=== PATIENT | female | born 1965 | race Caucasian/White ===

== ENCOUNTER → 2019-05-16 09:00 | Outpatient (BNVA) | payer OTHER, SELFPAY | PROVIDERS: Family Provider Nurse Practitioner; PCP Nurse Practitioner; Referring Provider Nurse Practitioner; Visit Provider Nurse Practitioner | DX: E11.9 Type 2 diabetes mellitus without complications (principal); E78.5 Hyperlipidemia, unspecified | CPT/HCPCS: 80053; 80061 ==

== ENCOUNTER → 2019-12-08 11:08 | Outpatient (BNVA) | payer OTHER, SELFPAY | PROVIDERS: Family Provider Nurse Practitioner; PCP Nurse Practitioner; Visit Provider Family Medicine | DX: I10 Essential (primary) hypertension (principal); E78.5 Hyperlipidemia, unspecified; E11.9 Type 2 diabetes mellitus without complications | CPT/HCPCS: 80053; 80061; 82044; 83036; 85025 ==

== ENCOUNTER → 2020-06-02 10:19 | Outpatient (BNVA) | payer OTHER, SELFPAY | PROVIDERS: Family Provider Nurse Practitioner; PCP Nurse Practitioner; Visit Provider Family Medicine | DX: E11.9 Type 2 diabetes mellitus without complications (principal); F41.1 Generalized anxiety disorder; I10 Essential (primary) hypertension; E78.5 Hyperlipidemia, unspecified; G56.02 Carpal tunnel syndrome, left upper limb | CPT/HCPCS: 80053 ==

== ENCOUNTER → 2020-11-18 09:59 | Outpatient (BNVA) | payer OTHER, SELFPAY | PROVIDERS: Family Provider Nurse Practitioner; PCP Family Medicine; Visit Provider Family Medicine | DX: E11.9 Type 2 diabetes mellitus without complications (principal); F41.1 Generalized anxiety disorder; G47.10 Hypersomnia, unspecified | CPT/HCPCS: 80053; 82043; 83036 ==

== ENCOUNTER → 2020-12-07 12:02 | Outpatient (BNVA) | payer OTHER, SELFPAY | PROVIDERS: Family Provider Nurse Practitioner; PCP Family Medicine; Visit Provider Nurse Practitioner Family | DX: Z20.828 Contact with and (suspected) exposure to other viral communicable diseases (principal) | CPT/HCPCS: 87635 ==

== ENCOUNTER 2021-01-07 10:29 | Outpatient (CLI) | payer OTHER, SELFPAY ==
[2021-01-07 10:43] VITALS: BMI 27.2
--- NOTE | 2021-01-07 11:55 | ECG_ITS ---
[facility] Test Date: 2021-01-07 Pat Name: Dayana Landin Department: Room: Gender: Female Speech Coach: : 1965 Requested By: Meredith Amado Order Number: [id number] Carreon MD: Chelle Fuller M.D. Interpretive Statements NAME OF STUDY: EXERCISE SESTAMIBI STRESS TEST INDICATION: Shortness of Breath, PROCEDURE: The baseline electrocardiogram showed normal sinus rhythm with normal ST-Ts. At the baseline, the patient's blood pressure was mm Hg with a heart rate of. The patient exercised for 8 minutes and 41 seconds on a standard Feliciano protocol. Patient attained a maximum heart rate of 155 beats per minute(93% of the maximum predicted heart rate) with a blood pressure at the peak exercise of 173/82 mm Hg. The EKG at the peak exercise revealed no significant changes. Patient did not have any chest pain or any significant arrhythmis with the exercise Sestamibi was injected 1 minute prior to the peak exercise During the recovery phase, there were no new changes. Blood pressure at the end of the recovery phase was 109/79 mm Hg with a heart rate of 87 per minute. CONCLUSION: 1. No significant EKG changes with the [treadmill exercise 2. No exercise-induced chest pain or cardiac arrhythmia 3. Fair exercise tolerance, attained a maximum of 10.2 Mets. 4. Sestamibi/Sestamibi perfusion results pending; see separate report. Electronically Signed On 01-10-2021 17:58:42 CDT by Chelle Fuller M.D. [id number]
--- NOTE | 2021-01-07 11:56 | NMCV_ITS ---
NM melissa perf SPECT r/s* [id number] Dayana Landin Age: 55 Gender: F : 1965 Exam Date: 01/07/2021 11:53 Ordering Phys: Meredith Amado DO Technologist: ARELY Means Exam Location: [facility] Indications: DYSPNEA STRESS TEST Please see separate stress test report in [facility] for full findings IMAGE PROTOCOL Rest/Stress 1 Exercise Day Radiopharmaceutical Dose (mCi) Administration Site Administered by Rest: Tc-99m 10.6 IV ARELY Mcclain Sestamibi Stress:Tc-99m 32.4 IV ARELY Means Sestamisandro Rest: 07-Jan-2021 60 Discovery 630 Stress: 07-Jan-2021 15 Discovery 630 Radiopharmaceutical was injected at 88 % maximum heart rate. Images obtained in supine and prone position. SPECT RESULTS Technical Quality: Excellent Raw Data Analysis: Normal Image Corrections: No attenuation or motion correction applied Summed Stress Score: 1 Summed Rest Score: 0 Summed Difference Score: 1 PERFUSION FINDINGS Small area of slightly decreased aseptic was noted in the mid inferolateral region with some reversibility with the supine imaging. However with the pronating, there is no reversible defects were noted FUNCTIONAL RESULTS (calculated via Gated SPECT) Stress Image LV EF (%): 91 Stress EDV (mL):47 TID: 0.77 Stress ESV (mL):4 FUNCTIONAL FINDINGS: Segmental wall motion analysis revealing no gross wall motion normalities. IMPRESSIONS 1. Myocardial perfusion imaging revealing a small area of inconsistent reversible defect in the inferolateral region, most likely artifactual. 2. Normal LV ejection fraction of 91%. 3. LV wall motion analysis revealing no gross wall motion normalities. 4. Normal LV volume Possibly no significant coronary ischemia, based on the above finding. Dr Chelle Fuller MD [facility] (Electronically Signed) Final Date: 07 January 2021 13:47 S
[2021-01-07 12:59] VITALS: BP 107/79; PULSE 88
== END 2021-01-07 10:30 | disposition home or self-care (01) ==
LOC: CDL 10:31
PROVIDERS: PCP Family Medicine; Visit Provider Family Medicine
DX: R06.00 Dyspnea, unspecified (principal)
CPT/HCPCS: 78452; 93017; A9500

== ENCOUNTER 2021-02-03 12:00 | Outpatient (CLI) | payer OTHER, SELFPAY | END 2021-02-03 12:01 | disposition home or self-care (01) | LOC: SLEEP 02-04 10:36 | PROVIDERS: PCP Family Medicine; Visit Provider Family Medicine | DX: G47.10 Hypersomnia, unspecified (principal) | CPT/HCPCS: G0399 ==

== ENCOUNTER → 2022-02-07 10:50 | Outpatient (BNVA) | payer OTHER, SELFPAY | PROVIDERS: PCP Family Medicine; Visit Provider Family Medicine | DX: I10 Essential (primary) hypertension (principal); E78.5 Hyperlipidemia, unspecified; E11.9 Type 2 diabetes mellitus without complications; R10.13 Epigastric pain | CPT/HCPCS: 80053; 80061; 82043; 83036; 85025 ==

== ENCOUNTER → 2022-04-20 11:49 | Outpatient (BNVA) | payer OTHER, SELFPAY | PROVIDERS: PCP Family Medicine; Visit Provider Family Medicine | DX: R53.83 Other fatigue (principal); E11.9 Type 2 diabetes mellitus without complications; R11.10 Vomiting, unspecified; R10.9 Unspecified abdominal pain; H11.89 Other specified disorders of conjunctiva | CPT/HCPCS: 80053; 83036; 83690; 84443; 85027 ==

== ENCOUNTER → 2022-04-26 11:27 | Outpatient (BNVA) | payer OTHER, SELFPAY | PROVIDERS: PCP Family Medicine; Visit Provider Family Medicine | DX: D50.9 Iron deficiency anemia, unspecified (principal); D75.839 Thrombocytosis, unspecified; R11.10 Vomiting, unspecified; R10.9 Unspecified abdominal pain; H11.89 Other specified disorders of conjunctiva | CPT/HCPCS: 80503; 82728; 83550; 84466; 85025; 85045 ==

== ENCOUNTER 2022-05-18 14:11 | Emergency (ER) | payer OTHER, SELFPAY ==
[2022-05-18 14:14] VITALS: BP 136/83; PULSE 88; RESP 20; TEMP 36.2; O2SAT 100
[2022-05-18 16:05] VITALS: BP 159/88; PULSE 75; RESP 18; O2SAT 100
--- NOTE | 2022-05-18 16:17 | XRR_ITS ---
PROCEDURE INFORMATION: Exam: XR Abdomen Exam date and time: 05/18/2022 4:25 PM Age: 57 years old Clinical indication: Abdominal pain; Generalized; Additional info: Abd pain TECHNIQUE: Imaging protocol: Radiologic exam of the abdomen. Views: Frontal supine view of the abdomen. 1 View. COMPARISON: CR XR chest 1V [id number] 09/03/2018 2:50 PM FINDINGS: Gastrointestinal tract: Moderate to severe constipation without bowel dilation to indicate obstruction. Bones/joints: Unremarkable. XR/XR KUB portable [id number] IMPRESSION: Moderate to severe constipation without bowel dilation to indicate obstruction.
--- NOTE | 2022-05-18 16:17 | W.ED.ABDPA2 ---
HPI - Abdominal Pain General: Chief Complaint: Abdominal Pain Stated Complaint: unable to urinate, pains Time Seen by Provider: 05/18/22 15:56 Source: patient Mode of arrival: ambulatory History of Present Illness: 57-year-old female presents emergency room complaining of nausea vomiting and constipation. She vomited once last week. She denies any medication melena hematemesis coffee-ground emesis. She tried various things to assist with bowel movements but has not been able to go with very uncomfortable has been able to urinate without difficulty denies fever sweats or chills. MD elicited complaint: abdominal pain Pertinent past history: constipation Onset (ago): day(s) Location: Diffuse Severity: moderate Quality: cramping Radiation: none Exacerbating factors: nothing Relieving factors: nothing Associated Symptoms: Reports GI cramping, nausea and poor appetite; Denies anorexia, belching, change in bowel habits, change in stool character, chills, coffee ground emesis, constipation, diarrhea, dyspepsia, dysuria, excessive flatus, fever(s), heartburn, hematochezia, hematuria, hematemesis, fecal incontinence, loose stools, melena, syncope and vomiting Related Data: Date of Last Menstrual Period: 05/14/14 Review of Systems Const: Denies: fever(s), chills, fatigue or malaise ENMT: Denies: throat pain, ear or mastoid pain, nasal discharge or nasal congestion Card: Denies: chest pain, palpitations, irregular heart rhythm or syncope Resp: Denies: dyspnea, productive cough or non-productive cough GI: Reports: abdominal pain, nausea and GI cramping; Denies: vomiting, hematemesis, coffee ground emesis, heartburn, diarrhea, constipation, belching, excessive flatus, fecal incontinence, change in bowel habits, change in stool character, hematochezia or melena : Denies: dysuria or hematuria Skin/Breast: Denies: rash or pruritus PFSH ED PFSH: Medical History Dyslipidemia Hypertension Type 2 diabetes mellitus, without long-term current use of insulin Surgical History No pertinent past surgical history Family History Other Diabetes Hypertension Social History Smoking and tobacco status: never smoked Second hand smoke exposure: Yes Smoking risk assessment/counseling performed?: No Alcohol intake: never Desire information about alcohol rehabilitation?: No Counseling given: No Desire information about substance/drug rehabilitation?: No Counseling given: No History of recent travel: No Female Reproductive History: Date of last menstrual period: 05/14/14 Physical Exam Const: GENERAL APPEARANCE: cooperative and comfortable ORIENTATION/CONSCIOUSNESS: Yes awake, Yes oriented to person, Yes oriented to place and Yes oriented to time HENMT: COMMON NORMALS: normocephalic, atraumatic and hearing grossly normal bilaterally HEAD & SCALP: normocephalic and atraumatic Resp: COMMON NORMALS: normal respiratory effort, No retractions, No use of accessory muscles and clear to auscultation bilaterally AUSCULTATION: clear to auscultation bilaterally Cardio: COMMON NORMALS: regular rate, regular rhythm and No murmurs present (Cardio) RATE: regular rate RHYTHM: regular rhythm GI: COMMON NORMALS: No hepatosplenomegaly present AUSCULTATION: Yes normoactive bowel sounds PALPATION: Yes Tenderness to palpation present (GI) (Diffuse), No Guarding due to palpation present (GI) and Yes No hepatosplenomegaly present Extremity: COMMON NORMALS: normal to inspection, capillary refill normal, no clubbing, cyanosis or edema, no calf tenderness and no pedal edema Neuro: SENSORIUM/ORIENTATION: Yes oriented to person, Yes oriented to place and Yes oriented to time Skin: COMMON NORMALS: no rashes or lesions noted GENERAL SKIN EXAM: no rashes or lesions noted Course Vital Signs: Vital signs: Vital Signs Temperature 97.2 F L 05/18/22 14:14 Pulse Rate 84 05/18/22 17:00 Respiratory Rate 18 05/18/22 16:05 Blood Pressure 132/68 05/18/22 17:00 Pulse Oximetry 100 05/18/22 17:00 MDM - Abdominal Pain Medical Decision Making Relief of symptoms afterwards for movement stimulated by enema. Suspect patient will still have large amount of stool to pass use lactulose. Recommend initiating MiraLAX 1 capful daily to prevent further constipation follow-up with primary care as needed Medical Records I reviewed the patient's medical records. Lab Data I reviewed the patient's lab results. Labs/Radiology: Radiology Impressions KUB X-Ray 05/18/22 16:17 IMPRESSION: Moderate to severe constipation without bowel dilation to indicate obstruction. Discharge Plan Discharge Patient Disposition: Home Clinical Impression: Constipation Condition: Stable Prescriptions: No Action magnesium hydroxide [Milk Of Magnesia Concentrated] 2,400 mg/10 mL suspension 10 ml PO BID PRN (Reason: constipation) Qty: 100 0RF Discharge Orders: Discharge ED (Routine); Ordered 05/18/22 Ordered By: Khalif Morrison Referrals: Julio Jay, [Primary Care Provider] - Discharge Diet: Clear Liquid Discharge Activity: Increase activity as tolerated Patient Instructions: Constipation (ED), Opioid Safety, Pain Management Activity Restrictions/Additional Instructions: You were seen today for constipation and urinary to the initial portions of it would be beneficial for you to use some laxative at home he is lactulose every 2 hours until desired results are achieved. Would also recommend commend starting MiraLAX 1 capful daily for preventative to keep from developing constipation in the future Coding Level of Care Code ED Road Grader Operator for Walter Baca
--- NOTE | 2022-05-18 16:40 | PC.NURSE ---
DR. COOL GAVE VERBAL ORDER FOR BLADDER SCAN. PT HAS 54ML OF URINE IN BLADDER PER RESULT OF BLADDER SCAN
[2022-05-18 17:00] VITALS: BP 132/68; PULSE 84; O2SAT 100
--- NOTE | 2022-05-18 18:52 | PC.NURSE ---
PT HAD BM. PT STATES I FELT LIKE QUITE A BIT CAME OUT
--- NOTE | 2022-05-18 18:53 | PC.NURSE ---
PT REMOVED VS EQIPMENT DUE TO NEEDING TO USE THE RESTROOM OFTEN
== END 2022-05-18 18:54 | disposition home or self-care (01) ==
PROVIDERS: Emergency Provider Family Medicine; PCP Family Medicine
DX: K59.00 Constipation, unspecified (principal); Z77.22 Contact with and (suspected) exposure to environmental tobacco smoke (acute) (chronic); E78.5 Hyperlipidemia, unspecified; I10 Essential (primary) hypertension; E11.9 Type 2 diabetes mellitus without complications
CPT/HCPCS: 45915; 74018; 99284

== ENCOUNTER 2022-07-19 12:49 | Outpatient (CLI) | payer OTHER, SELFPAY ==
--- NOTE | 2022-07-19 13:08 | MM_ITS ---
WS: [id number] BILATERAL 3D TOMOSYNTHESIS DIGITAL SCREENING MAMMOGRAPHY WITH CAD CLINICAL INFORMATION: Breast CA screening. HISTORY: Screening mammogram. No current complaints. COMPARISON: Baseline TECHNIQUE: Bilateral CC and MLO views. FINDINGS: The breasts are composed of heterogeneous fibroglandular density tissue, which can limit the detectio n of small underlying mass lesions. No suspicious mass, asymmetry, calcifications, or architectural d istortion. No evidence of malignancy. Dystrophic calcification RIGHT breast. Incidental punctate calc ifications bilaterally. MM/[place] [id number] IMPRESSION: BI-RADS: 2-Benign FOLLOW UP: 1 Year Follow-up Recommend return to annual screening mammography.
== END 2022-07-19 12:50 | disposition home or self-care (01) ==
LOC: RAD 12:54
PROVIDERS: PCP Family Medicine; Visit Provider Family Medicine
DX: Z12.31 Encounter for screening mammogram for malignant neoplasm of breast (principal)
CPT/HCPCS: 77063; 77067

== ENCOUNTER → 2022-08-09 11:00 | Outpatient (BNVA) | payer OTHER, SELFPAY | PROVIDERS: PCP Family Medicine; Referring Provider Family Medicine; Visit Provider Nurse Practitioner Women's Health | DX: Z12.4 Encounter for screening for malignant neoplasm of cervix (principal) | CPT/HCPCS: 87624 ==

== ENCOUNTER → 2022-08-30 10:07 | Outpatient (BNVA) | payer OTHER, SELFPAY | PROVIDERS: PCP Family Medicine; Visit Provider Nurse Practitioner Women's Health | DX: Z78.0 Asymptomatic menopausal state (principal); R19.00 Intra-abdominal and pelvic swelling, mass and lump, unspecified site | CPT/HCPCS: 76830 ==

== ENCOUNTER 2022-09-22 06:02 | Day surgery (SDC) | payer OTHER, SELFPAY ==
[2022-09-20 13:37] VITALS: BMI 22.6
[2022-09-22] VITALS (10 sets, daily range): BP systolic 96–124; BP diastolic 63–79; PULSE 69–98; RESP 14–18; TEMP 36.1–36.5; O2SAT 97–100
[2022-09-22 06:39] LABS: Glucose Point of Care 168 mg/dL (70-110)
[2022-09-22] MEDS: sodium chloride 0.9% 1,000 ML 30 ML IV (06:40)
--- NOTE | 2022-09-22 06:47 | P.ANESASSM_ITS ---
Pre-Anesthetic Assessment Height/Weight: Height 1.5 m Weight 50.802 kg Temp Pulse Resp BP Pulse Ox O2 Del Method 97.7 F 98 18 98/72 97 Room Air 09/22/22 06:30 09/22/22 06:30 09/22/22 06:30 09/22/22 06:30 09/22/22 06:30 09/22/22 06:30 Preop Diagnosis: screening Operation Date: 09/22/22 07:30 Proposed Procedures p 72006 colon,Z12.11 EGD 45146(Not Applicable) - Konstantin Basilio DO s EGD(Not Applicable) - Konstantin Basilio DO Familial anesthetic complications: none Was Beta Ranjan taken within 24 hours: N/A Was Clonidine taken within 24 hours: N/A Last intake: Intake Last Liquid Date 09/21/22 Last Liquid Time 23:00 Last Solid Date 09/20/22 Social No alcohol and No tobacco Exam alert, oriented x 3, clear to auscultation bilaterally and regular rate & rhythm Airway Submandibular: within normal limits Cervical ROM: within normal limits Mallampati: Class IV Dentition: full Pulmonary Sleep Apnea (home study- patient doesn't wear CPAP she doesnt believe she really has it ) CV/HEM Hypertension None reported Hepatic None reported GI Gastroesophageal Reflux Disease 30 lbs unintentional weightloss over the last 6 months. Metabolic Diabetes Mellitus and Hyperlipidemia [facility] None reported Neuropsych Anxiety and None reported Anesthetic Plan ASA status: 3 Anesthesia: MAC Medications/Allergies Home Medications Medication Instructions Recorded Confirmed Last Taken Type escitalopram oxalate 10 mg tablet 10 mg PO DAILY #30 tabs 07/11/22 09/20/22 09/20/22 Rx (Lexapro) pantoprazole 40 mg tablet,delayed 40 mg PO BID #60 tabs 07/11/22 09/20/22 09/20/22 Rx release Allergies Allergy/AdvReac Type Severity Reaction Status Date / Time No Known Allergies Allergy Verified 09/22/22 06:31 Current Medications Generic Name Dose Route Start Last Admin Trade Name Freq PRN Reason Stop Dose Admin Sodium Chloride 1,000 mls @ 30 mls/hr 09/22/22 06:15 09/22/22 06:40 Sodium Chloride 0.9% IV 09/23/22 06:14 30 mls/hr .Q24H JOSSE Administration PFSH Anesthesia Medical History Dyslipidemia Hypertension No pertinent past medical history neghx:thyroid,dvt/pe PCP: Pierre Type 2 diabetes mellitus, without long-term current use of insulin Surgical History No pertinent past surgical history Family History Mother Diabetes Stroke Family/Other Diabetes nephew Father Hypertension Denies family history of Colon cancer Ovarian cancer Heart disease Hyperlipidemia Breast cancer Uterine cancer Thyroid condition Social History Smoking and tobacco status: never smoked Alcohol intake: former Substance/Drug Use: never Data Anesthesia Cardiac Studies: Sestamibi Stress Test (Cardiology) 01/07
--- NOTE | 2022-09-22 07:29 | W.PM.OPSUD ---
Surgery/Procedure H&P Update DATE OF PROCEDURE: September 22, 2022 DATE H&P PERFORMED: 08/29/22 H&P UPDATE INFORMATION: I have reviewed H&P completed within last 30 days, I have examined patient prior to procedure and No changes to prior documentation PREOP DIAGNOSIS: screening, GERD PLANNED PROCEDURE: Operation Date: 09/22/22 07:30 Proposed Procedures p 99164 colon,Z12.11 EGD 93255(Not Applicable) - DO josh Arora EGD(Not Applicable) - Konstantin Basilio DO
--- NOTE | 2022-09-22 14:41 | ANE.PACU2 ---
Inpatient post-anesthesia follow up: Airway intact: Yes Vital signs: Temperature 97 F Pulse Rate 69 Respiratory Rate 16 Blood Pressure 96/63 Pulse Oximetry 100 Oxygen Delivery Me thod Room Air Oxygen Flow Rate 3 Fraction of Inspir ed Oxygen Hydration adequate: Yes Nausea and vomiting: No Pain level: 2 Mental status: Baseline
== END 2022-09-22 09:28 | disposition home or self-care (01) ==
PROVIDERS: PCP Family Medicine; Visit Provider Surgery
PROC: 0DJD8ZZ Inspection of Lower Intestinal Tract, Via Natural or Artificial Opening Endoscopic (ICD-10-PCS; CPT 45378; principal; 2022-09-22 07:30)
PROC: 0DJ08ZZ Inspection of Upper Intestinal Tract, Via Natural or Artificial Opening Endoscopic (ICD-10-PCS; CPT 43235; 2022-09-22 07:30)
DX: K21.9 Gastro-esophageal reflux disease without esophagitis (principal); Z12.11 Encounter for screening for malignant neoplasm of colon; K63.5 Polyp of colon; B96.81 Helicobacter pylori [H. pylori] as the cause of diseases classified elsewhere; K29.50 Unspecified chronic gastritis without bleeding; D12.2 Benign neoplasm of ascending colon; D12.4 Benign neoplasm of descending colon; T18.2XXA Foreign body in stomach, initial encounter; X58.XXXA Exposure to other specified factors, initial encounter; G47.30 Sleep apnea, unspecified; I10 Essential (primary) hypertension; F41.9 Anxiety disorder, unspecified; E11.9 Type 2 diabetes mellitus without complications
CPT/HCPCS: 36416; 43239; 45385; 82962; 88305; 88342; J0330; J0461; J2704; J7030

== ENCOUNTER → 2022-10-10 11:37 | Outpatient (BNVA) | payer OTHER, SELFPAY | PROVIDERS: PCP Family Medicine; Visit Provider Family Medicine | DX: F41.1 Generalized anxiety disorder (principal); K21.9 Gastro-esophageal reflux disease without esophagitis; B96.81 Helicobacter pylori [H. pylori] as the cause of diseases classified elsewhere; D50.9 Iron deficiency anemia, unspecified; E11.9 Type 2 diabetes mellitus without complications; I10 Essential (primary) hypertension; K29.70 Gastritis, unspecified, without bleeding | CPT/HCPCS: 80048; 83036; 85027 ==

== ENCOUNTER → 2022-12-20 11:10 | Outpatient (BNVA) | payer OTHER, SELFPAY | PROVIDERS: PCP Family Medicine; Visit Provider Family Medicine | DX: D50.9 Iron deficiency anemia, unspecified (principal) | CPT/HCPCS: 85025 ==

== ENCOUNTER 2022-12-21 11:35 | Emergency (ER) | payer OTHER, SELFPAY ==
[2022-12-21] VITALS (7 sets, daily range): BP systolic 126–144; BP diastolic 66–86; PULSE 69–85; RESP 15–18; TEMP 36.8–37.1; O2SAT 100; BMI 23.4
--- NOTE | 2022-12-21 12:42 | ED_ITS ---
HPI - Recheck/Abnormal Lab/Rx General: Chief Complaint: Recheck/Abnormal Lab/Rx Stated Complaint: Dr. Jay sent for blood transfusion Time Seen by Provider: 12/21/22 12:28 Source: patient Mode of arrival: ambulatory Limitations: no limitations History of Present Illness: 57-year-old female states she been having some weakness states she is seen by her PCP and called today and told she is anemic. States she has had chronic anemia but never to the level where she needed a transfusion her hemoglobin was 6.3. She denies any blood in her stool she has not passed out blood pressure is normal Review of Systems Const: Reports: fatigue and malaise; Denies: fever(s), chills, body aches or change in appetite ENMT: Denies: throat pain or dental pain Card: Denies: chest pain Resp: Denies: dyspnea GI: Denies: abdominal pain, nausea, vomiting or diarrhea Musc: Denies: neck pain or back pain Skin/Breast: Denies: rash Neuro: Denies: headache(s) PFSH ED PFSH: Medical History Dyslipidemia Hypertension No pertinent past medical history neghx:thyroid,dvt/pe PCP: Pierre Type 2 diabetes mellitus, without long-term current use of insulin Surgical History No pertinent past surgical history Family History Mother Diabetes Stroke Family/Other Diabetes nephew Father Hypertension Denies family history of Colon cancer Ovarian cancer Heart disease Hyperlipidemia Breast cancer Uterine cancer Thyroid condition Social History Smoking and tobacco status: never smoked Alcohol intake: former Substance/Drug Use: never Physical Exam 2 Const: COMMON NORMALS: no acute distress, patient oriented x3 and healthy appearing HENMT: COMMON NORMALS: normocephalic and atraumatic HEAD & SCALP: normocephalic and atraumatic Eye: COMMON NORMALS: Equal, round and reactive pupils present and EOMs intact bilaterally PUPIL: Yes Equal, round and reactive pupils present Neck/C-Spine: COMMON NORMALS: full ROM and supple Chest: COMMONS NORMALS: normal inspection of the chest and normal palpation of entire chest wall Resp: COMMON NORMALS: normal respiratory effort, No retractions, No use of accessory muscles and clear to auscultation bilaterally AUSCULTATION: clear to auscultation bilaterally Cardio: COMMON NORMALS: regular rate, regular rhythm and No murmurs present (Cardio) RATE: regular rate RHYTHM: regular rhythm GI: COMMON NORMALS: Normal to inspection, nondistended, normoactive bowel sounds present, Soft to palpation, non-tender and no masses PALPATION: Yes Soft to palpation Extremity: COMMON NORMALS: normal to inspection and full ROM Neuro: COMMON NORMALS: patient oriented x3, moves all extremities and no focal motor deficits Psych: COMMON NORMALS: mental status grossly normal, Normal thought process present and cooperative THOUGHT PROCESS: Normal thought process present Skin: COMMON NORMALS: no rashes or lesions noted and no wounds GENERAL SKIN EXAM: no rashes or lesions noted Course Vital Signs: Vital signs: Vital Signs Temperature 98.7 F 12/21/22 15:10 Pulse Rate 72 12/21/22 15:10 Respiratory Rate 18 12/21/22 15:10 Blood Pressure 126/66 12/21/22 15:10 Pulse Oximetry 100 12/21/22 15:10 Oxygen Delivery Me thod Room Air 12/21/22 14:34 MDM - Recheck/Abnormal Lab/Rx Medical Decision Making Patient presents here with anemia she has no signs of any bleeding here did give her 1 unit of blood she is wanting to go home at this point I did talk to her physician Dr. Mccain who is going to follow her up she is stable for discharge return if worsening. Medical Records I reviewed the patient's medical records. Lab Data I reviewed the patient's lab results. 12/21/22 12:37 12/21/22 12:37 Laboratory Results WBC 6.1 10^3/uL (4.0-10.0) 12/21/22 12:37 RBC 3.31 10^6/uL (4.1-5.3) L 12/21/22 12:37 Hgb 6.8 g/dL (11.5-15.3) L 12/21/22 12:37 Hct 23.4 % (37.0-47.0) L 12/21/22 12:37 MCV 70.7 fl (81-99) L D 12/21/22 12:37 MCH 20.5 pg (28.0-34.0) L 12/21/22 12:37 MCHC 29.1 g/dL (30.0-36.0) L D 12/21/22 12:37 RDW 16.6 % (12.1-15.1) H 12/21/22 12:37 Plt Count 351 10^3/cmm (130-400) 12/21/22 12:37 MPV 9.6 fL (7.4-10.4) 12/21/22 12:37 Neut % (Auto) 73.5 % 12/21/22 12:37 Lymph % (Auto) 17.6 % 12/21/22 12:37 Kendall % (Auto) 5.8 % 12/21/22 12:37 Eos % (Auto) 2.3 % 12/21/22 12:37 Baso % (Auto) 0.5 % 12/21/22 12:37 Neut # (Auto) 4.46 10^3/uL (1.8-7.7) 12/21/22 12:37 Lymph # (Auto) 1.1 10^3/uL (0.8-4.8) 12/21/22 12:37 Kendall # (Auto) 0.4 10^3/uL (0.2-0.9) 12/21/22 12:37 Eos # (Auto) 0.1 10^3/uL (0.0-0.8) 12/21/22 12:37 Baso # (Auto) 0.0 10^3/uL (0.0-0.1) 12/21/22 12:37 Nucleated RBC % (auto) 0 % 12/21/22 12:37 Nucleated RBCs # 0.0 /100WBC 12/21/22 12:37 Sodium 144 mmol/L (136-145) 12/21/22 12:37 Potassium 4.6 mmol/L (3.5-5.1) 12/21/22 12:37 Chloride 108 mmol/L (98-107) H 12/21/22 12:37 Carbon Dioxide 26 mmol/L (22-29) 12/21/22 12:37 Anion Gap 14.6 (5-19) 12/21/22 12:37 BUN 11 mg/dL (6-20) 12/21/22 12:37 Creatinine 0.6 mg/dL (0.5-0.9) 12/21/22 12:37 GFR Calculation 103.0 mL/min (90-130) 12/21/22 12:37 Glucose 103 mg/dL (65-115) 12/21/22 12:37 Calculated Osmolality 298 mOsm/kg (285-295) H 12/21/22 12:37 Calcium 8.6 mg/dL (8.5-10.5) 12/21/22 12:37 Iron 19 ug/dL (37-145) L 12/21/22 12:37 Iron 19 ug/dL (37-145) L 12/21/22 12:37 TIBC 401 mcg/dl 12/21/22 12:37 % Saturation 4.7 % (20-50) L 12/21/22 12:37 Unsat Iron Binding 382 ug/dL (112-347) H 12/21/22 12:37 Total Bilirubin 0.3 mg/dL (0.15-1.2) 12/21/22 12:37 AST 15 U/L (0-32) 12/21/22 12:37 ALT < 5 U/L (0-33) 12/21/22 12:37 Alkaline Phosphatase 70 U/L (35-105) 12/21/22 12:37 Total Protein 6.1 g/dL (6.6-8.7) L 12/21/22 12:37 Albumin 3.7 g/dL (3.5-5.2) 12/21/22 12:37 Globulin 2.4 g/dL (1.3-4.6) 12/21/22 12:37 Blood Type A Negative 12/21/22 12:37 Rho(D) Type Negative 12/21/22 12:37 Antibody Screen Negative 12/21/22 12:37 Crossmatch See Detail 12/21/22 12:37 Discharge Plan Discharge Patient Disposition: Home Clinical Impression: Anemia Condition: Stable Prescriptions: No Action pantoprazole 40 mg tablet,delayed release (DR/EC) 40 mg PO BID Qty: 60 5RF escitalopram oxalate 20 mg tablet 20 mg PO QPM Discharge Orders: Discharge ED (Routine); Ordered 12/21/22 Ordered By: Korby Castro Referrals: Julio Jay, [Primary Care Provider] - Discharge Diet: Advance as tolerated Discharge Activity: Resume usual activity Patient Instructions: Anemia (ED) Coding Level of Care Code ED Returned Goods Inspector for Walter Baca
[2022-12-21 13:03] LABS: Basophils % 0.5 %; Eosinophils # 0.1 10^3/uL (0.0-0.8); Eosinophils % 2.3 %; Hematocrit 23.4 % (37.0-47.0); Hemoglobin 6.8 g/dL (11.5-15.3); Lymphocytes # 1.1 10^3/uL (0.8-4.8); Lymphocytes % 17.6 %; Mean Corpuscular HGB Conc 29.1 g/dL (30.0-36.0); Mean Corpuscular Hemoglobin 20.5 pg (28.0-34.0); Mean Corpuscular Volume 70.7 fl (81-99); Mean Platelet Volume 9.6 fL (7.4-10.4); Monocytes # 0.4 10^3/uL (0.2-0.9); Monocytes % 5.8 %; Neutrophils # 4.46 10^3/uL (1.8-7.7); Neutrophils % 73.5 %; Nucleated Red Blood Cells % 0 %; Platelet Count 351 10^3/cmm (130-400); Red Blood Count 3.31 10^6/uL (4.1-5.3); Red Cell Distribution Width 16.6 % (12.1-15.1); White Blood Count 6.1 10^3/uL (4.0-10.0)
[2022-12-21 13:10] LABS: Alanine Aminotransferase < 5 U/L (0-33); Albumin Level 3.7 g/dL (3.5-5.2); Alkaline Phosphatase 70 U/L (35-105); Anion Gap 14.6 (5-19); Aspartate Amino Transferase 15 U/L (0-32); Blood Urea Nitrogen 11 mg/dL (6-20); Calcium 8.6 mg/dL (8.5-10.5); Carbon Dioxide 26 mmol/L (22-29); Chloride 108 mmol/L (98-107); Globulin 2.4 g/dL (1.3-4.6); Glucose 103 mg/dL (65-115); Iron 19 ug/dL (37-145); Osmolality Calculated 298 mOsm/kg (285-295); Percent Saturation 4.7 % (20-50); Potassium 4.6 mmol/L (3.5-5.1); Sodium 144 mmol/L (136-145); Total Bilirubin 0.3 mg/dL (0.15-1.2); Total Iron Binding Capacity 401 mcg/dl; Total Protein 6.1 g/dL (6.6-8.7); Unsaturated Iron Binding 382 ug/dL (112-347)
[2022-12-21 13:24] LABS: Iron 19 ug/dL (37-145)
[2022-12-21 13:50] LABS: Slide Review Slide Review Perform
== END 2022-12-21 17:34 | disposition home or self-care (01) ==
PROVIDERS: Nurse Practitioner Family; Emergency Provider Emergency Medicine; PCP Family Medicine
DX: D64.9 Anemia, unspecified (principal); E78.5 Hyperlipidemia, unspecified; I10 Essential (primary) hypertension; E11.9 Type 2 diabetes mellitus without complications
CPT/HCPCS: 36415; 36430; 80053; 83540; 83550; 85025; 86850; 86900; 86920; 99284; P9016

== ENCOUNTER 2023-01-29 13:45 | Emergency (ER) | payer OTHER, SELFPAY ==
[2023-01-29 14:07] VITALS: BP 136/81; PULSE 89; RESP 17; TEMP 36.9; O2SAT 100
--- NOTE | 2023-01-29 14:13 | XRR_ITS ---
PROCEDURE INFORMATION: Exam: XR Chest Exam date and time: 01/29/2023 2:25 PM Age: 57 years old Clinical indication: Pain; Angina pectoris; Additional info: Cp TECHNIQUE: Imaging protocol: Radiologic exam of the chest. Views: 1 view. COMPARISON: CR XR chest 1V [id number] 09/03/2018 2:50 PM FINDINGS: Lungs: Unremarkable. No consolidation. Pleural spaces: Unremarkable. No pleural effusion. No pneumothorax. Heart/Mediastinum: Unremarkable. No cardiomegaly. Bones/joints: Unremarkable. XR/XR chest 1V portable [id number] IMPRESSION: No acute findings.
--- NOTE | 2023-01-29 14:13 | ECG_ITS ---
[facility] Test Date: 2023-01-29 Pat Name: Dayana Landin Department: Room: Gender: Female Production Solderer: : 1965 Requested By: Rajni Erazo Order Number: [id number] Lauri MD: Lacy Pendleton M.D. Measurements Intervals [place] Rate: 88 P: 22 OR: 116 QRS: -6 QRSD: 73 T: 128 QT: 364 QTc: 442 Interpretive Statements SINUS RHYTHM WITH SHORT OR INTERVAL LOW QRS VOLTAGE IN PRECORDIAL LEADS [QRS DEFLECTION < 1.0 mV IN CHEST LEADS] POSSIBLE ANTERIOR MYOCARDIAL INFARCTION , PROBABLY OLD [30 ms Q WAVE IN V3/V4, OR R < 0.2 mV IN V4] INTERPRETATION BASED ON A DEFAULT AGE OF 40 YEARS Compared to ECG 09/03/2018 14:55:55 Short OR interval now present Low QRS voltage now present Myocardial infarct finding now present Left-axis deviation no longer present Atrial abnormality no longer present Electronically Signed On 01-29-2023 21:24:21 CDT by Lacy Pendleton M.D. [id number]
[2023-01-29 14:37] LABS: Basophils # 0.1 10^3/uL (0.0-0.1); Basophils % 0.6 %; Eosinophils # 0.2 10^3/uL (0.0-0.8); Eosinophils % 2.9 %; Hematocrit 33.6 % (36-47); Lymphocytes # 1.3 10^3/uL (0.8-4.8); Lymphocytes % 16.6 %; Mean Corpuscular HGB Conc 27.7 g/dL (30-55); Mean Corpuscular Hemoglobin 21.2 pg (27-33); Mean Corpuscular Volume 76.5 fl (85-98); Mean Platelet Volume 8.3 fL (7.4-10.4); Monocytes # 0.4 10^3/uL (0.2-0.9); Monocytes % 5.4 %; Neutrophils # 5.88 10^3/uL (1.8-7.7); Neutrophils % 74.2 %; Nucleated Red Blood Cells % 0 %; Platelet Count 425 10^3/cmm (157-399); Red Blood Count 4.39 10^6/uL (3.85-5.65); Red Cell Distribution Width 17.5 % (12.1-15.1); White Blood Count 7.93 10^3/uL (3.29-11.43)
[2023-01-29 14:54] LABS: Troponin(5th) Baseline 6 ng/L (0-10)
[2023-01-29 14:57] LABS: Alanine Aminotransferase 10 U/L (0-33); Albumin Level 4.2 g/dL (3.5-5.2); Alkaline Phosphatase 90 U/L (35-105); Anion Gap 13.9 (5-19); Aspartate Amino Transferase 14 U/L (0-32); Blood Urea Nitrogen 15 mg/dL (6-20); Calcium 9.4 mg/dL (8.5-10.5); Carbon Dioxide 28 mmol/L (22-29); Chloride 102 mmol/L (98-107); Creatinine Clr Calc Pharmacy 0.1624; Globulin 2.5 g/dL (1.3-4.6); Glomerular Filtration Rate 86.2 mL/min (90-130); Glucose 162 mg/dL (65-115); Lipase 53 U/L (13-60); Osmolality Calculated 294 mOsm/kg (285-295); Potassium 3.9 mmol/L (3.5-5.1); Sodium 140 mmol/L (136-145); Total Bilirubin 0.3 mg/dL (0.15-1.2); Total Protein 6.7 g/dL (6.6-8.7)
--- NOTE | 2023-01-29 15:16 | US_ITS ---
WS: [id number] ULTRASOUND ABDOMEN LIMITED CLINICAL INFORMATION: ruq pain COMPARISON: None. FINDINGS: Liver Size: Normal. Craniocaudal length: 15.5 cm. Echogenicity: Normal. Surface nodularity: None. Mass (size and location): None. Bile ducts Intrahepatic ducts: Normal. Common bile duct diameter: 0.4 cm. Gallbladder Normal. Gallstones: None. Gallbladder sludge: None. Gallbladder wall thickening: None. Pericholecystic fluid: None. Sonographic Grayson sign: Absent. Pancreas Normal as visualized. Right kidney: Normal. Hydronephrosis: None. Size: 9.2 cm x 4.8 cm x 4.0 cm. Abdominal aorta and IVC Visualized portions are normal. Ascites: None. IMPRESSION: Normal gallbladder ultrasound
--- NOTE | 2023-01-29 15:35 | ED_ITS ---
HPI - Chest Pain General: Chief Complaint: Chest Pain Stated Complaint: sob, abd pain Time Seen by Provider: 01/29/23 14:48 Source: patient Mode of arrival: ambulatory Limitations: no limitations History of Present Illness: 57-year-old female states that on Sunday she is having some epigastric pain merle ng with some chest pain. States she does have reflux at times states the pain lasted the weekend that improved today and is very mild currently she rates pain a 1 out of 10. She had no vomiting no diarrhea she denies any radiation of her pain she had no shortness of breath. Denies any fever. Associated symptoms: Reports abdominal pain; Deny dyspnea, fever(s), nausea or vomiting Review of Systems Const: Denies: fever(s), chills, body aches or change in appetite ENMT: Denies: throat pain or dental pain Card: Reports: chest pain Resp: Denies: dyspnea GI: Reports: abdominal pain; Denies: nausea, vomiting or diarrhea : Denies: dysuria Musc: Denies: neck pain or back pain Skin/Breast: Denies: rash Neuro: Denies: headache(s) PFSH ED PFSH: Medical History Dyslipidemia Hypertension No pertinent past medical history neghx:thyroid,dvt/pe PCP: Pierre Type 2 diabetes mellitus, without long-term current use of insulin Surgical History No pertinent past surgical history Family History Mother Diabetes Stroke Family/Other Diabetes nephew Father Hypertension Denies family history of Colon cancer Ovarian cancer Heart disease Hyperlipidemia Breast cancer Uterine cancer Thyroid condition Social History Smoking and tobacco status: never smoked Alcohol intake: former Substance/Drug Use: never Physical Exam Const: COMMON NORMALS: no acute distress, patient oriented x3 and healthy appearing HENMT: COMMON NORMALS: normocephalic and atraumatic HEAD & SCALP: normocephalic and atraumatic Eye: COMMON NORMALS: conjunctivae normal CONJUNCTIVA: Yes conjunctivae normal Neck/C-Spine: COMMON NORMALS: full ROM and supple Chest: COMMONS NORMALS: normal inspection of the chest and normal palpation of entire chest wall Resp: COMMON NORMALS: normal respiratory effort, No retractions, No use of accessory muscles and clear to auscultation bilaterally AUSCULTATION: clear to auscultation bilaterally Cardio: COMMON NORMALS: regular rate, regular rhythm and No murmurs present (Cardio) RATE: regular rate RHYTHM: regular rhythm GI: COMMON NORMALS: Normal to inspection, nondistended, normoactive bowel blanca nds present, Soft to palpation, non-tender and no masses PALPATION: Yes Soft to palpation Extremity: COMMON NORMALS: normal to inspection and full ROM Neuro: COMMON NORMALS: patient oriented x3, moves all extremities and no focal motor deficits Psych: COMMON NORMALS: mental status grossly normal, Normal thought process present and cooperative THOUGHT PROCESS: Normal thought process present Skin: COMMON NORMALS: no rashes or lesions noted and no wounds GENERAL SKIN EXAM: no rashes or lesions noted Course Vital Signs: Vital signs: Vital Signs Temperature 98.4 F 01/29/23 14:07 Pulse Rate 80 01/29/23 16:04 Respiratory Rate 17 01/29/23 14:07 Blood Pressure 116/63 01/29/23 16:04 Pulse Oximetry 100 01/29/23 16:04 Oxygen Delivery Me thod Room Air 01/29/23 14:07 MDM - Chest Pain Medical Decision Making Patient presents here with abdominal pain that started on Sunday is improved today ultrasound of her gallbladder here is normal blood work including troponins normal she has no signs of any acute coronary syndrome she is stable for discharge we will get her follow-up with surgery she is return if worsening she understands agrees to plan. Medical Records I reviewed the patient's medical records. Lab Data I reviewed the patient's lab results. 01/29/23 14:19 01/29/23 14:19 Radiology Impressions Chest X-Ray 01/29/23 14:13 IMPRESSION: No acute findings. Laboratory Results WBC 7.93 10^3/uL (3.29-11.43) 01/29/23 14:19 RBC 4.39 10^6/uL (3.85-5.65) 01/29/23 14:19 Hgb 9.30 g/dL (11.27-16.99) L 01/29/23 14:19 Hct 33.6 % (36-47) L 01/29/23 14:19 MCV 76.5 fl (85-98) L 01/29/23 14:19 MCH 21.2 pg (27-33) L 01/29/23 14:19 MCHC 27.7 g/dL (30-55) L 01/29/23 14:19 RDW 17.5 % (12.1-15.1) H 01/29/23 14:19 Plt Count 425 10^3/cmm (157-399) H 01/29/23 14:19 MPV 8.3 fL (7.4-10.4) 01/29/23 14:19 Neut % (Auto) 74.2 % 01/29/23 14:19 Lymph % (Auto) 16.6 % 01/29/23 14:19 [place] % (Auto) 5.4 % 01/29/23 14:19 Eos % (Auto) 2.9 % 01/29/23 14:19 Baso % (Auto) 0.6 % 01/29/23 14:19 Neut # (Auto) 5.88 10^3/uL (1.8-7.7) 01/29/23 14:19 Lymph # (Auto) 1.3 10^3/uL (0.8-4.8) 01/29/23 14:19 [place] # (Auto) 0.4 10^3/uL (0.2-0.9) 01/29/23 14:19 Eos # (Auto) 0.2 10^3/uL (0.0-0.8) 01/29/23 14:19 Baso # (Auto) 0.1 10^3/uL (0.0-0.1) 01/29/23 14:19 Nucleated RBC % (auto) 0 % 01/29/23 14:19 Nucleated RBCs # 0.0 /100WBC 01/29/23 14:19 Sodium 140 mmol/L (136-145) 01/29/23 14:19 Potassium 3.9 mmol/L (3.5-5.1) 01/29/23 14:19 Chloride 102 mmol/L (98-107) 01/29/23 14:19 Carbon Dioxide 28 mmol/L (22-29) 01/29/23 14:19 Anion Gap 13.9 (5-19) 01/29/23 14:19 BUN 15 mg/dL (6-20) 01/29/23 14:19 Creatinine 0.7 mg/dL (0.5-0.9) 01/29/23 14:19 GFR Calculation 86.2 mL/min (90-130) L 01/29/23 14:19 Glucose 162 mg/dL (65-115) H 01/29/23 14:19 Calculated Osmolality 294 mOsm/kg (285-295) 01/29/23 14:19 Calcium 9.4 mg/dL (8.5-10.5) 01/29/23 14:19 Total Bilirubin 0.3 mg/dL (0.15-1.2) 01/29/23 14:19 AST 14 U/L (0-32) 01/29/23 14:19 ALT 10 U/L (0-33) 01/29/23 14:19 Alkaline Phosphatase 90 U/L (35-105) 01/29/23 14:19 Troponin T Baseline 6 ng/L (0-10) 01/29/23 14:19 Total Protein 6.7 g/dL (6.6-8.7) 01/29/23 14:19 Albumin 4.2 g/dL (3.5-5.2) 01/29/23 14:19 Globulin 2.5 g/dL (1.3-4.6) 01/29/23 14:19 Lipase 53 U/L (13-60) 01/29/23 14:19 XR interpretation done by ED provider, pending radiology final review Discharge Plan Discharge Patient Disposition: Home Clinical Impression: Abdominal pain Condition: Stable Prescriptions: New ondansetron 4 mg tablet,disintegrating 4 mg PO Q6H PRN (Reason: nausea and vomiting) Qty: 14 0RF No Action pantoprazole 40 mg tablet,delayed release (DR/EC) 40 mg PO BID Qty: 60 5RF escitalopram oxalate 20 mg tablet 20 mg PO QPM Discharge Orders: Discharge ED (Routine); Ordered 01/29/23 Ordered By: Rajni Erazo Referrals: Julio Jay DO [Primary Care Provider] - 1-3 days Riki Mancuso MD [Physician] - 4-7 days Discharge Diet: Advance as tolerated Discharge Activity: Resume usual activity Patient Instructions: Abdominal Pain (ED) Stand Alone Forms: Work/School Release Coding Level of Care Code ED Telegraph 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
[2023-01-29 16:04] VITALS: BP 116/63; PULSE 80; O2SAT 100
--- NOTE | 2023-01-30 08:13 | PC.SOCIAL ---
General Surgery Referral Referral message sent to general surgery at this time. Clinic will contact patient with appt. date/time.
== END 2023-01-29 16:05 | disposition home or self-care (01) ==
PROVIDERS: Emergency Provider Emergency Medicine; PCP Family Medicine
DX: R10.13 Epigastric pain (principal); E78.5 Hyperlipidemia, unspecified; I10 Essential (primary) hypertension; E11.9 Type 2 diabetes mellitus without complications
CPT/HCPCS: 36415; 71045; 76705; 80053; 83690; 84484; 85025; 93005; 99285

== ENCOUNTER 2023-02-07 13:06 | Outpatient (CLI) | payer OTHER, SELFPAY | END 2023-02-07 13:07 | disposition home or self-care (01) | LOC: LAB 13:09 | PROVIDERS: PCP Family Medicine; Visit Provider Surgery | DX: R10.13 Epigastric pain (principal); R19.7 Diarrhea, unspecified; R10.9 Unspecified abdominal pain | CPT/HCPCS: 87338 ==

== ENCOUNTER 2023-03-01 13:00 | Oncology outpatient (recurring) (ONCR) | payer OTHER, SELFPAY ==
[2023-02-15 14:23] VITALS: BP 127/70; PULSE 64; RESP 18; TEMP 36.4; O2SAT 100
[2023-03-01 12:57] VITALS: BP 112/58; PULSE 69; RESP 18; TEMP 36.1; O2SAT 98
[2023-03-01] MEDS: iron sucrose 200 MG in sodium chloride 0.9% (100 ml) 100 ML 220 MG IV (13:19)
[2023-03-01 14:07] VITALS: BP 152/67; PULSE 66; RESP 18; TEMP 36.4; O2SAT 98
== END 2023-03-13 23:59 | disposition home or self-care (01) ==
PROVIDERS: PCP Family Medicine; Visit Provider Family Medicine
DX: D50.9 Iron deficiency anemia, unspecified (principal)
CPT/HCPCS: 96365; J1756

== ENCOUNTER 2023-03-15 12:06 | Oncology outpatient (recurring) (ONCR) | payer OTHER, SELFPAY ==
[2023-03-15] MEDS: iron sucrose 200 MG in sodium chloride 0.9% (100 ml) 100 ML 220 MG IV (12:32)
[2023-03-15 12:38] VITALS: BP 116/73; PULSE 73; RESP 18; TEMP 37.1; O2SAT 98
[2023-03-15 13:00] VITALS: PULSE 90; RESP 18; TEMP 36.1
== END 2023-04-12 23:59 | disposition home or self-care (01) ==
LOC: ONCMED 12:06
PROVIDERS: PCP Family Medicine; Visit Provider Family Medicine
DX: D50.9 Iron deficiency anemia, unspecified (principal)
CPT/HCPCS: 96365; J1756

== ENCOUNTER → 2023-03-21 11:50 | Outpatient (BNVA) | payer OTHER, SELFPAY | PROVIDERS: PCP Family Medicine; Visit Provider Family Medicine | DX: K21.9 Gastro-esophageal reflux disease without esophagitis (principal); D50.9 Iron deficiency anemia, unspecified | CPT/HCPCS: 82728; 83540; 85025 ==

== ENCOUNTER 2023-04-23 10:49 | Inpatient (IN) | payer OTHER, SELFPAY ==
[2023-04-23] VITALS (11 sets, daily range): BP systolic 90–135; BP diastolic 57–86; PULSE 75–98; RESP 16–18; TEMP 36.4–37.6; O2SAT 96–100; BMI 22.2
--- NOTE | 2023-04-23 11:07 | XR_ITS ---
WS: [id number] PORTABLE CHEST HISTORY: weakness COMPARISON: 01/29/2023 Lungs are clear and well expanded. No pleural effusion or pneumothorax. Cardiac size: Normal. Mediastinum/Aorta: Normal mediastinum. No osseous abnormality seen. IMPRESSION: Unremarkable portable chest.
--- NOTE | 2023-04-23 11:52 | ECG_ITS ---
[facility] Test Date: 2023-04-23 Pat Name: Dayana Landin Department: Room: Gender: Female Search And Rescue Officer: : 1965 Requested By: Rajni Erazo Order Number: [id number] Lauri MD: Kike Rodriguez M.D. Measurements Intervals [place] Rate: 88 P: 0 TX: 0 QRS: 8 QRSD: 78 T: 33 QT: 362 QTc: 439 Interpretive Statements Sinus rhythm with premature atrial contraction LOW QRS VOLTAGE IN PRECORDIAL LEADS [QRS DEFLECTION < 1.0 mV IN CHEST LEADS] NONSPECIFIC T-WAVE ABNORMALITY ABNORMAL RHYTHM ECG Compared to ECG 01/29/2023 14:07:25 T-wave abnormality now present Short TX interval no longer present Myocardial infarct finding no longer present Electronically Signed On 04-23-2023 15:56:34 HAND FRAME SURGICAL ELASTIC KNITTER by Kike Rodriguez M.D. [id number]
--- NOTE | 2023-04-23 12:08 | W.ED.DIZZY ---
HPI - Dizziness General: Chief Complaint: Dizziness Stated Complaint: body aches, was passing out Time Seen by Provider: 04/23/23 11:31 Source: patient Mode of arrival: ambulatory History of Present Illness: HPI Narrative: 58-year-old female presents emergency room for me dizziness weakness difficulty when she first stands up getting dizzy lightheaded to the point where she fell several times over the weekend. She has not been eating very well she stopped several of her medications she is little bit difficult to understand it sounds like she was on prednisone she thinks it was maybe as much is 20 mg daily she stopped that and the escitalopram completely. She has a known history of iron deficiency anemia. She previously had a GI bleed was thought to be from upper GI source she had been down as low as 6.8. most recent doctor's office visit there is documentation that she was on Protonix and escitalopram she is convinced it was prednisone that she was on I do not see any documentation of it in the chart in either event she stopped both medications. She has had black stools which she does take iron supplement. She denies any hematemesis or coffee-ground emesis no neena hematochezia stools. No focal neurologic deficits noted on exam she is very soft-spoken but enunciate as well is relatively decent history. MD elicited complaint: dizziness Pertinent past history: GI bleed Timing: gradual onset Severity: moderate Exacerbating factors: nothing Relieving factors: nothing Associated symptoms: Denies abnormal vaginal bleeding, change in hearing, chest pain, chills, cough, diaphoresis, ear discharge, ear pressure, fevers/chills, headache(s), malaise, nausea, nasal congestion, palpitations, rash, short of breath, syncope, tinnitus, vomiting or weakness Associated neuro symptoms: Deny confusion, difficulty speaking, dysphagia, diplopia, extremity weakness, facial numbness, facial weakness, gait changes, numbness in extremities, visual changes or other Review of Systems Const: Denies: fever(s), chills, malaise or diaphoresis ENMT: Denies: ear discharge, change in hearing, tinnitus or nasal congestion Card: Denies: chest pain, palpitations or syncope Resp: Denies: dyspnea GI: Denies: abdominal pain, nausea, vomiting or dysphagia : Denies: dysuria, urinary frequency or urinary urgency Musc: Denies: neck pain or back pain Skin/Breast: Denies: rash Neuro: Denies: headache(s), numbness in extremities or confusion PFSH ED PFSH: Medical History No pertinent past medical history neghx:thyroid,dvt/pe PCP: Pierre Type 2 diabetes mellitus, without long-term current use of insulin Dyslipidemia Hypertension Surgical History Hx of colonoscopy with polypectomy No pertinent past surgical history Family History Mother Diabetes Stroke Family/Other Diabetes nephew Father Hypertension Denies family history of Colon cancer Ovarian cancer Heart disease Hyperlipidemia Breast cancer Uterine cancer Thyroid disease Social History Smoking and tobacco/nicotine status: never used tobacco/nicotine Alcohol intake: former Substance/Drug Use: never Physical Exam Const: COMMON NORMALS: no acute distress GENERAL APPEARANCE: cooperative and comfortable ORIENTATION/CONSCIOUSNESS: Yes awake, Yes oriented to person, Yes oriented to place and Yes oriented to time HENMT: COMMON NORMALS: normocephalic, atraumatic and hearing grossly normal bilaterally HEAD & SCALP: normocephalic and atraumatic Resp: COMMON NORMALS: normal respiratory effort, No retractions, No use of accessory muscles and clear to auscultation bilaterally AUSCULTATION: clear to auscultation bilaterally Cardio: COMMON NORMALS: regular rate, regular rhythm and No murmurs present (Cardio) RATE: regular rate RHYTHM: regular rhythm GI: COMMON NORMALS: Soft to palpation and No hepatosplenomegaly present AUSCULTATION: Yes normoactive bowel sounds PALPATION: Yes Soft to palpation, No Tenderness to palpation present (GI), No Guarding due to palpation present (GI) and Yes No hepatosplenomegaly present Extremity: COMMON NORMALS: normal to inspection, capillary refill normal, no clubbing, cyanosis or edema, no calf tenderness and no pedal edema Neuro: SENSORIUM/ORIENTATION: Yes oriented to person, Yes oriented to place and Yes oriented to time Skin: COMMON NORMALS: no rashes or lesions noted GENERAL SKIN EXAM: no rashes or lesions noted Course Vital Signs: Vital signs: Vital Signs Temperature 97.6 F 04/23/23 11:21 Pulse Rate 83 04/23/23 14:15 Respiratory Rate 16 04/23/23 14:15 Blood Pressure 101/62 04/23/23 14:15 Pulse Oximetry 98 04/23/23 14:15 Oxygen Delivery Me thod Room Air 04/23/23 11:21 MDM - Dizziness Medical Decision Making Hemoglobin is decreased 7 4 since she stopped taking her pantoprazole. She had upper GI bleed earlier this year and was treated for H. pylori after as documented on any EGD. There is a phytobezoar documented at that time pathology was read out as negative. On the CT now it looks to be concerning for gastric cancer. Liver functions and T. bili are normal will admit for transfusion reinstitute medications. He was given her Protonix here in the emergency room discussed with hospitalist. Will consult surgery for possible repeat EGD Medical Records I reviewed the patient's medical records. Lab Data I reviewed the patient's lab results. 04/23/23 12:05 04/23/23 12:05 Laboratory Results WBC 9.83 10^3/uL (3.29-11.43) 04/23/23 12:05 RBC 2.93 10^6/uL (3.85-5.65) L 04/23/23 12:05 Hgb 7.40 g/dL (11.27-16.99) L 04/23/23 12:05 Hct 25.3 % (36-47) L 04/23/23 12:05 MCV 86.3 fl (85-98) 04/23/23 12:05 MCH 25.3 pg (27-33) L 04/23/23 12:05 MCHC 29.2 g/dL (30-55) L 04/23/23 12:05 RDW 17.9 % (12.1-15.1) H 04/23/23 12:05 Plt Count 460 10^3/cmm (157-399) H 04/23/23 12:05 MPV 10.4 fL (7.4-10.4) 04/23/23 12:05 Neut % (Auto) 74.9 % 04/23/23 12:05 Lymph % (Auto) 18.1 % 04/23/23 12:05 [place] % (Auto) 5.2 % 04/23/23 12:05 Eos % (Auto) 0.8 % 04/23/23 12:05 Baso % (Auto) 0.6 % 04/23/23 12:05 Neut # (Auto) 7.36 10^3/uL (1.8-7.7) 04/23/23 12:05 Lymph # (Auto) 1.8 10^3/uL (0.8-4.8) 04/23/23 12:05 [place] # (Auto) 0.5 10^3/uL (0.2-0.9) 04/23/23 12:05 Eos # (Auto) 0.1 10^3/uL (0.0-0.8) 04/23/23 12:05 Baso # (Auto) 0.1 10^3/uL (0.0-0.1) 04/23/23 12:05 Nucleated RBC % (auto) 0 % 04/23/23 12:05 Nucleated RBCs # 0.0 /100WBC 04/23/23 12:05 Sodium 141 mmol/L (136-145) 04/23/23 12:05 Potassium 3.1 mmol/L (3.5-5.1) L 04/23/23 12:05 Chloride 102 mmol/L (98-107) 04/23/23 12:05 Carbon Dioxide 25 mmol/L (22-29) 04/23/23 12:05 Anion Gap 17.1 (5-19) 04/23/23 12:05 BUN 26 mg/dL (6-20) H 04/23/23 12:05 Creatinine 0.6 mg/dL (0.5-0.9) 04/23/23 12:05 GFR Calculation 102.7 mL/min (90-130) 04/23/23 12:05 Glucose 159 mg/dL (65-115) H 04/23/23 12:05 Calculated Osmolality 300 mOsm/kg (285-295) H 04/23/23 12:05 Calcium 8.9 mg/dL (8.5-10.5) 04/23/23 12:05 Total Bilirubin 0.2 mg/dL (0.15-1.2) 04/23/23 12:05 AST 18 U/L (0-32) 04/23/23 12:05 ALT 10 U/L (0-33) 04/23/23 12:05 Alkaline Phosphatase 61 U/L (35-105) 04/23/23 12:05 Total Protein 6.0 g/dL (6.6-8.7) L 04/23/23 12:05 Albumin 2.9 g/dL (3.5-5.2) L 04/23/23 12:05 Globulin 3.1 g/dL (1.3-4.6) 04/23/23 12:05 Random Cortisol 22.63 ug/dL (2.47-19.5) H 04/23/23 12:05 All radiology interpretation(s) finalized by discharge Discharge Plan Discharge Patient Disposition: Admitted As Inpatient Admit Provider: Haleigh Block Clinical Impression: Gastric mass, GERD (gastroesophageal reflux disease), Microcytic anemia Condition: Stable Coding Level of Care Code ED Manager Environmental Health And Safety for Walter Baca
--- NOTE | 2023-04-23 12:17 | CT_ITS ---
WS: [id number] CT ABDOMEN PELVIS TECHNIQUE: Contrast-enhanced CT of the abdomen and pelvis with coronal and sagittal reformatted image s. CLINICAL INFORMATION: abd pain COMPARISON: None. DLP: 315.[address] scans at [facility] use at least one of these dose optimization techniques: automated e xposure control; mA and/or kV adjustment per patient size (includes targeted exams where dose is matc hed to clinical indication); or iterative reconstruction. FINDINGS: Diffuse heterogeneous enhancement and thickening with nodularity involving the stomach worse involvin g the greater curvature in the epigastric region. Associated gastric wall nodularity. In addition mul tiple enlarged adjacent lymph nodes about the stomach and panchito hepatis. Diffuse heterogeneous low-at tenuation within the abutting LEFT hepatic lobe. Enlarged celiac and panchito hepatis lymph nodes. Increased attenuation within the stomach may present blood products. Lung bases are well aerated. Sub segmental atelectasis LEFT lower lobe. Diffuse fatty infiltration of the liver. Small RIGHT hepatic c yst or hemangioma measuring 10 mm. Portal vein and splenic vein are patent. Normal pancreas. Normal s pleen. Celiac and SMA appear patent. RIGHT adrenal gland is normal. LEFT adrenal nodules likely adenomas measuring 13 mm and 11 mm. Normal renal parenchymal enhancement. No hydronephrosis. Small LEFT renal cyst. Normal caliber abdominal ao rta. Sigmoid diverticulosis. No evidence of acute diverticulitis. Normal lumbar spine. IMPRESSION: 1. Diffuse nodular thickening with enhancement involving the gastric wall worse involving the greate r curvature in the epigastric region with multiple enlarged adjacent lymph nodes. Multiple enlarged l ymph nodes in the upper abdomen at the celiac axis and panchito hepatis. 2. Associated heterogeneous enhancement of the adjacent LEFT hepatic lobe. Differential consideratio ns include primary gastric neoplasm or gastric lymphoma with involvement of the liver versus possibly cholangiocarcinoma with involvement of the stomach. Consider further evaluation lobe with upper endo scopy. 3. Increased attenuation in the stomach suspicious for blood products. 4. Diffuse fatty infiltration of the liver. 5. Low-attenuation lesion RIGHT hepatic lobe likely hepatic cyst or hemangioma measuring 10 mm. 6. Small LEFT adrenal adenomas. 7. No other acute findings. Notified Khalif Morrison DO at 04/23/2023 2:10 PM.
--- NOTE | 2023-04-23 12:17 | CT_ITS ---
WS: [id number] CT HEAD TECHNIQUE: Noncontrast CT of the head obtained from the skullbase to the vertex. CLINICAL INFORMATION: trauma COMPARISON: None. DLP: 993.[address] scans at [facility] use at least one of these dose optimization techniques: automated e xposure control; mA and/or kV adjustment per patient size (includes targeted exams where dose is matc hed to clinical indication); or iterative reconstruction. FINDINGS: No evidence of intracranial hemorrhage or mass effect. Ventricular system and basal cisterns are kwong nt. Minimal small vessel changes with mild parenchymal volume loss. No extra-axial fluid collections. No evidence of mass or mass effect. Normal fu-white differentiation. Paranasal sinuses and mastoid air cells are well aerated. .Normal visualized soft tissues. IMPRESSION: 1. No evidence of intracranial hemorrhage or mass effect. 2. Minimal small vessel changes. Mild parenchymal volume loss. 3. No acute intracranial findings.
--- NOTE | 2023-04-23 12:38 | PC.PHAR ---
pt states she hasnt taken her meds in 2 weeks notes are made in the pharmacy comments
[2023-04-23 12:49] LABS: Basophils # 0.1 10^3/uL (0.0-0.1); Basophils % 0.6 %; Eosinophils # 0.1 10^3/uL (0.0-0.8); Eosinophils % 0.8 %; Hematocrit 25.3 % (36-47); Lymphocytes # 1.8 10^3/uL (0.8-4.8); Lymphocytes % 18.1 %; Mean Corpuscular HGB Conc 29.2 g/dL (30-55); Mean Corpuscular Hemoglobin 25.3 pg (27-33); Mean Corpuscular Volume 86.3 fl (85-98); Mean Platelet Volume 10.4 fL (7.4-10.4); Monocytes # 0.5 10^3/uL (0.2-0.9); Monocytes % 5.2 %; Neutrophils # 7.36 10^3/uL (1.8-7.7); Neutrophils % 74.9 %; Nucleated Red Blood Cells % 0 %; Platelet Count 460 10^3/cmm (157-399); Red Blood Count 2.93 10^6/uL (3.85-5.65); Red Cell Distribution Width 17.9 % (12.1-15.1); White Blood Count 9.83 10^3/uL (3.29-11.43)
[2023-04-23 13:17] LABS: Alanine Aminotransferase 10 U/L (0-33); Albumin Level 2.9 g/dL (3.5-5.2); Alkaline Phosphatase 61 U/L (35-105); Aspartate Amino Transferase 18 U/L (0-32); Blood Urea Nitrogen 26 mg/dL (6-20); Calcium 8.9 mg/dL (8.5-10.5); Carbon Dioxide 25 mmol/L (22-29); Chloride 102 mmol/L (98-107); Globulin 3.1 g/dL (1.3-4.6); Glomerular Filtration Rate 102.7 mL/min (90-130); Glucose 159 mg/dL (65-115); Osmolality Calculated 300 mOsm/kg (285-295); Sodium 141 mmol/L (136-145); Total Bilirubin 0.2 mg/dL (0.15-1.2)
[2023-04-23 13:31] LABS: Cortisol Random 22.63 ug/dL (2.47-19.5)
[2023-04-23 13:32] LABS: Anion Gap 17.1 (5-19); Potassium 3.1 mmol/L (3.5-5.1)
[2023-04-23] MEDS: iohexol 350 mg/mL 500 mL Btl (per mL) IV (13:36)
[2023-04-23] MEDS: pantoprazole 40 mg SDV 80 MG IVP (13:52)
--- NOTE | 2023-04-23 15:34 | PC.NURSE ---
Pt states that she has $2,000 in [place] in her purse. She will not let this RN count or see money. She states that she does not trust people, [place], or hospital workers. She is calling NephewPhilip Jr to come get the money and take it home. She also states that she is currently suicidal without a plan. Notified Dr. Block. Sitter order obtained.
--- NOTE | 2023-04-23 17:04 | P.HP_ITS ---
Providers/Chief Complaint 2 Admitting Physician: Haleigh Block MD Primary Care Provider: Julio Jay DO Chief Complaint: body aches, was passing out History of Present Illness Dayana Landin is a 58 year old female w/ Generalized Anxiety disorder, Iron deficiency anemia, and GERD who presents to [facility]'s ED on 04/23/2023 w/ complaints of dizziness and falls. On 04/22/2023 she kept feeling dizzy, light headed and falling in her bathroom. She thinks that she experienced head trauma. She experienced LUQ abdominal pain and melena starting on the night of 04/22/2023. She endorses poor appetite; she endorses nausea, but no emesis or hematemesis. She denies fever and chills, syxs, but states that she is cold b/c she is anemic. Based on chart review, patient underwent an EGD and colonoscopy in 09/2022, and biopsies showed chronic active gastritis as well as H. pylori. The patient was treated for it by her General surgeon who did her EGD/Colonoscopy. In the ED, her vital signs were within normal limits. Her labs are significant for a Hgb of 7.4, hypokalemia of 3.1, and an iron saturation of 8.7%. A CXR was done that showed no acute abnormalities. A CT abdomen and pelvis w/ contrast was done that showed diffuse nodular thickening with enhancement involving the gastric wall worse involving the greater curvature in the epigastric region with multiple enlarged adjacent lymph nodes. Multiple enlarged lymph nodes in the upper abdomen at the celiac axis and panchito hepatic cysts. There was also an associated heterogeneous enhancement of the adjacent L. Hepatic lobe concerning for a primary gastric neoplasm, gastric lymphoma, vs possible cholangiocarcinoma involving the stomach. There was also increased attenuation in the stomach suspicious for blood products, diffuse fatty infiltration of the liver, and a 10mm R. hepatic lobe lesion concerning for a hepatic cyst versus hemangioma, and small L. adrenal adenomas. The ED contacted the patient's general surgeon, Dr. Basilio, who did her previous EGDs and colonoscopies. Review of Systems 2 Const: Reports: fatigue; Denies: fever(s), chills or body aches Eyes: Denies: change in vision or blurry vision ENMT: Denies: odynophagia, ear or mastoid pain, nasal discharge or nasal congestion Card: Reports: lightheadedness; Denies: chest pain or palpitations Resp: Denies: dyspnea, productive cough, non-productive cough or wheezing GI: Reports: abdominal pain and nausea; Denies: vomiting, diarrhea or constipation : Denies: dysuria, urinary frequency, urinary urgency, urinary incontinence or hematuria Musc: Denies: joint swelling or muscle cramps Skin/Breast: Denies: rash or skin pain Neuro: Reports: frequent falls and dizziness Psych: Reports: anxiety and suicidal ideation (Does not have a plan); Denies: homicidal ideation Endo: Denies: cold intolerance or heat intolerance Mateusz/Lymph: Denies: easy bruising or easy bleeding Medications/Allergies Home Medications Medication Instructions Recorded Confirmed Last Taken Type escitalopram oxalate 20 mg tablet 20 mg PO QPM #30 tabs 02/07/23 04/23/23 2 Weeks Ago Rx ~04/09/23 pantoprazole 40 mg tablet,delayed 40 mg PO DAILY #30 tabs 03/21/23 04/23/23 2 Weeks Ago Rx release ~04/09/23 Anxiety And Stress Relief Tabs 1 tab PO BID PRN Anxiety 04/23/23 04/23/23 Unknown History ibuprofen 200 mg tablet (Advil) 400 - 600 mg PO Q6H PRN Pain 04/23/23 04/23/23 Unknown History Allergies Allergy/AdvReac Type Severity Reaction Status Date / Time No Known Allergies Allergy Verified 04/23/23 12:34 PFSH Acute 2 PFSH: Medical History No pertinent past medical history neghx:thyroid,dvt/pe PCP: Pierre Type 2 diabetes mellitus, without long-term current use of insulin Dyslipidemia Hypertension Surgical History Hx of colonoscopy with polypectomy No pertinent past surgical history Family History Mother Diabetes Stroke Family/Other Diabetes nephew Father Hypertension Denies family history of Colon cancer Ovarian cancer Heart disease Hyperlipidemia Breast cancer Uterine cancer Thyroid disease Social History Smoking and tobacco/nicotine status: never used tobacco/nicotine Alcohol intake: former Substance/Drug Use: never Vitals/I&O/Wt Last Vital Signs Temp 97.6 F 04/23/23 11:21 Pulse 83 04/23/23 14:15 Resp 16 04/23/23 14:15 BP 101/62 04/23/23 14:15 Pulse Ox 98 04/23/23 14:15 O2 Del Method Room Air 04/23/23 11:21 Weight last 48 hrs Weight 49.895 kg Weight 49.895 kg Physical Exam 2 Const: GENERAL APPEARANCE: cooperative, comfortable, ill appearing and frail appearing NUTRITIONAL APPEARANCE: thin ORIENTATION/CONSCIOUSNESS: Yes awake, Yes oriented to person, Yes oriented to place and Yes confused OTHER: She is shockingly pale HENMT: HEAD & SCALP: normocephalic and atraumatic EXTERNAL EAR: Yes external ears normal MOUTH: Normal oral and palatal mucosa present THROAT: posterior oropharynx normal Eye: CONJUNCTIVA: Yes conjunctivae normal PUPIL: Yes Equal, round and reactive pupils present EOM: No EOM abnormal Neck/C-Spine: GENERAL: Yes normal visual inspection and Yes trachea midline THYROID: Thyroid normal CAROTIDS: No bruit Lymph: LYMPHATIC: No lymphadenopathy Resp: OTHER: CTAB with no wheezes rales or rhonchi. Cardio: RATE: regular rate RHYTHM: regular rhythm HEART SOUNDS: S1 normal heart sound present, S2 normal heart sound present, no click, no gallops, no murmurs and no rubs BRUITS: no carotid bruits PERIPHERAL PULSES: radial pulses present and dorsalis pedis present GI: OTHER: Soft, nontender, nondistended, no rigidity, rebound tenderness, organomegaly appreciated. Bowel sounds positive. Extremity: GENERAL: No clubbing, No cyanosis and No edema Neuro: CRANIAL NERVES: Yes CN normal except as noted SPEECH: speech normal SENSORY EXAM: No sensory level loss detected MOTOR EXAM: 5/5 motor strength present throughout and Normal motor muscle tone present throughout Psych: APPEARANCE: Yes grossly normal and Yes well kempt ACTIVITY/MOTOR BEHAVIOR: Yes appropriate eye contact SPEECH: Yes normal speech MOOD & AFFECT: Yes euthymic mood THOUGHT PROCESS: disorganized, confused and Tangential thought process present THOUGHT CONTENT: Yes Suicidality present and No Homicidality present ATTENTION/CONCENTRATION: Yes attention grossly intact Skin: GENERAL SKIN EXAM: no rashes or lesions noted Data 04/24/23 04:06 04/24/23 04:06 A&P Assessment and plan (1) Gastric mass: (2) Epigastric pain: (3) Iron deficiency anemia: Qualifiers: Iron deficiency anemia type: chronic blood loss Qualified Code(s): D 50.0 - Iron deficiency anemia secondary to blood loss (chronic) (4) GERD (gastroesophageal reflux disease): Qualifiers: Esophagitis presence: without esophagitis Qualified Code(s): K21.9 - Gastro-esophageal reflux disease without esophagitis (5) GERMAN (generalized anxiety disorder): Plan Dayana Landin is a 58 year old female w/ Generalized Anxiety disorder (GERMAN), Iron deficiency anemia, and GERD who presents to [facility]'s ED on 04/23/2023 w/ complaints of dizziness, falls, and abdominal pain. In the ED, her vital signs were within normal limits. Her labs are significant for a Hgb of 7.4, hypokalemia of 3.1, and an iron saturation of 8.7%. A CXR was done that showed no acute abnormalities. A CT abdomen and pelvis w/ contrast was done that showed concern for a GI/biliary tract malignancy and lymphadenopathy, as well as small L. adrenal adenomas. The ED contacted the patient's general surgeon, Dr. Basilio, who did her previous EGDs and colonoscopies. There is a plan to take her for an EGD. She was given 80mg IV Pantoprazole and admitted. #Iron deficiency anemia: - Per Gen Surg's notes, she did not tolerate iron infusion well in the past. #Possible GI Malignancy: Plan for EGD on 04/24/2023. #GERD - Start Pantoprazole IV PPI BID #GERMAN: Hold Buspirone #Hypokalemia: Monior K+ levels and replace prn #Frequent Falls: Likely due to her iron deficiency anemia. PT/OT #Suicidal ideation: While she endorses contemplating suicide in the past, I wonder whether she understands what she is saying. She is quite tangential with her answers such that once has to wonder about her cognition. DVT ppx: SCD Attestations 2 Medical Necessity Statement*: I anticipate that the patient will need to stay for 2 or more nights. Coding Level of Care Code 41180 Diagnoses Gastric mass K31.89 Epigastric pain R10.13 Iron deficiency anemia due to chronic blood loss D50.0 Iron deficiency anemia type: chronic blood loss Gastroesophageal reflux disease without esophagitis K21.9 Esophagitis presence: without esophagitis GERMAN (generalized anxiety disorder) F41.1 Time Spent (min) 76 Comment Time was spent on chart review/ patient interview/exam, lab/image review, plan formulation
[2023-04-23] MEDS: docusate sodium 100 mg Capsule PO (17:18)
[2023-04-23] MEDS: pantoprazole DR 40 mg Tablet PO (17:18)
--- NOTE | 2023-04-23 17:20 | PC.NURSE ---
Nephew takes $2,000 rasmussen home with him. Verified with Nurse Neeraj Gudino.
[2023-04-23 18:23] LABS: Iron 21 ug/dL (37-145); Percent Saturation 8.7 % (20-50); Total Iron Binding Capacity 239 mcg/dl; Unsaturated Iron Binding 218 ug/dL (112-347)
[2023-04-23 20:22] LABS: Magnesium 2.1 mg/dL (1.7-2.3); Phosphorus 2.7 mg/dL (2.5-4.5)
[2023-04-24] VITALS (10 sets, daily range): BP systolic 102–136; BP diastolic 59–78; PULSE 72–85; RESP 12–18; TEMP 36.1–37.2; O2SAT 95–100; BMI 22.2
[2023-04-24 05:09] LABS: Basophils # 0.1 10^3/uL (0.0-0.1); Basophils % 0.6 %; Eosinophils # 0.1 10^3/uL (0.0-0.8); Eosinophils % 1.8 %; Hematocrit 26.2 % (36-47); Lymphocytes % 25.8 %; Mean Corpuscular HGB Conc 30.9 g/dL (30-55); Mean Corpuscular Hemoglobin 26.2 pg (27-33); Mean Corpuscular Volume 84.8 fl (85-98); Mean Platelet Volume 9.1 fL (7.4-10.4); Monocytes # 0.5 10^3/uL (0.2-0.9); Monocytes % 5.7 %; Neutrophils # 5.15 10^3/uL (1.8-7.7); Neutrophils % 65.7 %; Nucleated Red Blood Cells % 0 %; Platelet Count 447 10^3/cmm (157-399); Red Blood Count 3.09 10^6/uL (3.85-5.65); Red Cell Distribution Width 16.8 % (12.1-15.1); White Blood Count 7.84 10^3/uL (3.29-11.43)
[2023-04-24 05:19] LABS: INR 1.09 (0.8-1.2)
[2023-04-24 05:21] LABS: Partial Thromboplastin Time 31.5 SECONDS (23.9-36.7)
[2023-04-24 05:30] LABS: Alanine Aminotransferase 11 U/L (0-33); Albumin Level 2.8 g/dL (3.5-5.2); Alkaline Phosphatase 63 U/L (35-105); Anion Gap 15.5 (5-19); Aspartate Amino Transferase 15 U/L (0-32); Blood Urea Nitrogen 21 mg/dL (6-20); Calcium 8.6 mg/dL (8.5-10.5); Carbon Dioxide 27 mmol/L (22-29); Chloride 106 mmol/L (98-107); Globulin 2.7 g/dL (1.3-4.6); Glomerular Filtration Rate 126.7 mL/min (90-130); Glucose 87 mg/dL (65-115); Osmolality Calculated 302 mOsm/kg (285-295); Phosphorus 3.3 mg/dL (2.5-4.5); Potassium 3.5 mmol/L (3.5-5.1); Sodium 145 mmol/L (136-145); Total Bilirubin 1.6 mg/dL (0.15-1.2); Total Protein 5.5 g/dL (6.6-8.7)
[2023-04-24] MEDS: docusate sodium 100 mg Capsule PO ×2 (08:59→16:32)
--- NOTE | 2023-04-24 09:01 | PC.CHAP ---
Pastoral Care Encounter/Spiritual Assessment Type of Contact [] Declined coach tour driver visit [] Patient/Family/Request visit [] Outpatient visit [] Follow-up visit [] Physician referral [] Code/Alert [x] Routine visit [] Staff referral [] Actively dying [] Patient sleeping [x] Family support [] [] Out of room [] Palliative care [] [] Receiving care in room [] Pre-surgical visit [] Trauma [] Long length of stay [] ICU visit [] Other: Relational/Emotional Strength [x] Patient feels connected with others/family/visitors/staff [] Distress [] Loneliness/isolation [] Abandonment Spirituality of Patient [x] Person of Shani [] Attends Advent of their Shani [] Believes in Prayer [] Reads Bible or Yarsanism materials [] There are Spiritual issues to be addressed Cleat Feeder Interventions [x] Prayer [] Active listening [] Non-anxious presence [x] Spiritual/emotional support [] Crisis/trauma care [] Spiritual counseling [] Bereavement support [] Provided bereavement packet [] Provided Bible/devotional materials [] Provided toy/stuffed animal, coloring book to patient or family member [] Provided Communion [] Anointing/[place] [] Salvation [x] Completed spiritual assessment [] Other: Impact on Illness or Injury [] Angry [] Fearful [] Anxious [] Often cries [] Exhaustion [] Unable to work [] Unable to attend church [] Unable to walk/stand [] Unable to read [] Unable to drive [] Unable to eat/drink [] Unable to sleep [] Unable to be with family [] Patient intubated [] Other: Summary Time spent with patient 5 min
--- NOTE | 2023-04-24 11:17 | P.CONIM_ITS ---
Providers/Reason For Consult 2 Consulting Physician/Specialty*: Dr. Konstantin Basilio DO/General surgery Reason for Consult*: Abdominal pain and weakness Attending Physician: Haleigh Block MD Primary Care Provider: Julio Jay DO History of Present Illness History of Present Illness Dayana Ladnin is a 58 year old female who presented to the hospital with 1 week history of weakness and syncopal episodes. She reports that she has had left upper quadrant abdominal pain off and on for the last few months. The pain is sharp and intermittent. Eating make the pain worse. Nothing seems to make the pain better. She does report melena recently along with some nausea and vomiting but denies any hematemesis. I last saw her 3 months ago and ordered a HIDA scan and stool for H. pylori. She never followed through with either study. 7 months ago she got an EGD and colonoscopy and was found to have moderate chronic active gastritis with an H. pylori infection. She tells me she completed her antibiotics. Imaging in the ER shows a potential gastric mass. She reports that she is lost 55 pounds unintentionally this year. Review of Systems 2 General: Reports: 10 or more systems reviewed and unremarkable except in HPI and below Medications/Allergies Home Medications Medication Instructions Recorded Confirmed Last Taken Type escitalopram oxalate 20 mg tablet 20 mg PO QPM #30 tabs 02/07/23 04/23/23 2 Weeks Ago Rx ~04/09/23 pantoprazole 40 mg tablet,delayed 40 mg PO DAILY #30 tabs 03/21/23 04/23/23 2 Weeks Ago Rx release ~04/09/23 Anxiety And Stress Relief Tabs 1 tab PO BID PRN Anxiety 04/23/23 04/23/23 Unknown History ibuprofen 200 mg tablet (Advil) 400 - 600 mg PO Q6H PRN Pain 04/23/23 04/23/23 Unknown History Allergies Allergy/AdvReac Type Severity Reaction Status Date / Time No Known Allergies Allergy Verified 04/23/23 12:34 Current Medications Generic Name Dose Route Start Last Admin Trade Name Freq PRN Reason Stop Dose Admin Docusate Sodium 100 mg 04/23/23 18:00 04/24/23 08:59 Docusate Sodium 100 Mg Capsule PO 100 mg BID JOSSE Administration Pantoprazole Sodium 40 mg 04/23/23 17:00 04/24/23 06:[address] 40 Mg Tablet PO Not Given BIDAC JOSSE PFSH Acute 2 PFSH: Medical History No pertinent past medical history neghx:thyroid,dvt/pe PCP: Pierre Type 2 diabetes mellitus, without long-term current use of insulin Dyslipidemia Hypertension Surgical History Hx of colonoscopy with polypectomy No pertinent past surgical history Family History Mother Diabetes Stroke Family/Other Diabetes nephew Father Hypertension Denies family history of Colon cancer Ovarian cancer Heart disease Hyperlipidemia Breast cancer Uterine cancer Thyroid disease Social History Smoking and tobacco/nicotine status: never used tobacco/nicotine Alcohol intake: former Substance/Drug Use: never Vitals/I&O/Wt Last Vital Signs Temp 98.2 F 04/24/23 07:27 Pulse 83 04/24/23 07:27 Resp 16 04/24/23 07:27 BP 120/71 04/24/23 07:27 Pulse Ox 99 04/24/23 07:27 O2 Del Method Room Air 04/24/23 07:27 04/23/23 04/24/23 04/24/23 22:59 06:59 14:59 Intake Total 240 / 240 0 / 240 Balance 240 / 240 0 / 240 Weight last 48 hrs Weight 110 lb Weight 110 lb Weight 110 lb Physical Exam 2 Narrative: General : Patient is well developed , no acute distress, oriented x3 Head : Normal cephalic, a-traumatic. Ears : Pinnae and external canal are normal. Hearing is normal. Eyes : PERRLA, Sclera and injection are normal. No conjunctival discharge. Nose : Mucous membranes are without erythema. Throat : buccal mucosa is normal, gums are without significant recession or hypertrophy. Lungs : Equal chest rise bilaterally, no use of accessory muscles, trachea is midline. Cor : Rate and rhythm are normal. Abdomen : Soft, ND, NT, no g/r/m Extremities : No edema, no cyanosis or clubbing, dorsalis pedis pulses are present bilaterally, non-tender to palpation of calves. Upper extremities are normal bilaterally. Back : non-tender to palpation, no CVA tenderness. Neuro : CN II - XII intact, Upper and lower extremities have equal and full strength Data 04/24/23 04:06 04/24/23 04:06 A&P Assessment and plan (1) Gastric mass: (2) Melena: Plan EGD The risks and benefits of the procedure, including bleeding, infection, intestinal perforation requiring surgery, missed lesion were explained to the patient. The patient is understanding of the risks and wishes to proceed. Medical management per primary Coding Level of Care Code 70269 Diagnoses Gastric mass K31.89 Melena K92.1
--- NOTE | 2023-04-24 11:47 | P.PN_ITS ---
Subjective 2 Subjective: Per the patient's nurse, the patient had two thousand dollars in her purse that she brought with her because she did not trust the bank. The nursing staff made the patient give the money to her Nephew, Mr. Harkins, who was visiting the patient. Today, and her nephew Mr. Harkins was at the bedside. When questioned about the statements regarding suicidal ideation with a plan, she states that she had Once upon a time had suicidal ideation; however at the time that she was admitted and throughout her hospitalization stay, she has never had suicidal ideation, nor does she have a plan. She states that she very much wants to live. Regarding homicidal ideation, she states that she does not think in that manner, because she mentioned to me on the day of admission (yesterday), she allows ramesh to take care of people. The patient and her nephew want to know when she can be discharged. I have informed them that it will be dependent on her surgeon who did the procedure. She looks better today. Vitals/I&O/Wt Last Vital Signs Temp 98.2 F 04/24/23 07:27 Pulse 83 04/24/23 07:27 Resp 16 04/24/23 07:27 BP 120/71 04/24/23 07:27 Pulse Ox 99 04/24/23 07:27 O2 Del Method Room Air 04/24/23 07:27 04/23/23 04/24/23 04/24/23 22:59 06:59 14:59 Intake Total 240 / 240 0 / 240 Balance 240 / 240 0 / 240 Weight last 48 hrs Weight 49.895 kg Weight 49.895 kg Weight 49.895 kg Physical Exam 2 Const: GENERAL APPEARANCE: cooperative, comfortable, well kempt, ill appearing and frail appearing NUTRITIONAL APPEARANCE: thin O RIENTATION/CONSCIOUSNESS: Yes awake, Yes oriented to person, Yes oriented to place and Yes confused OTHER: She is less pale in her legs. HENMT: COMMON NORMALS: normocephalic, atraumatic and external ears normal H EAD & SCALP: normocephalic and atraumatic EXTERNAL EAR: Yes external ears normal MOUTH: Normal oral and palatal mucosa present THROAT: posterior oropharynx normal Eye: COMMON NORMALS: Equal, round and reactive pupils present and conjunctivae normal CONJUNCTIVA: Yes conjunctivae normal PUPIL: Yes Equal, round and reactive pupils present EOM: No EOM abnormal Neck/C-Spine: COMMON NORMALS: Thyroid normal GENERAL: Yes normal visual inspection and Yes trachea midline THYROID: Thyroid normal CAROTIDS: No bruit Lymph: LYMPHATIC: No lymphadenopathy Resp: OTHER: CTAB with no wheezes rales or rhonchi. Cardio: COMMON NORMALS: regular rate, regular rhythm, S1 normal heart sound present and S2 normal heart sound present RATE: regular rate RHYTHM: r egular rhythm HEART SOUNDS: S1 normal heart sound present, S2 normal heart sound present, no click, no gallops, no murmurs and no rubs BRUITS: no carotid bruits PERIPHERAL PULSES: radial pulses present and dorsalis pedis present GI: OTHER: Soft, nontender, nondistended, no rigidity, rebound tenderness, organomegaly appreciated. Bowel sounds positive. Extremity: GENERAL: No clubbing, No cyanosis and No edema Neuro: SENSORIUM/ORIENTATION: Yes oriented to person and Yes oriented to place CRANIAL NERVES: Yes CN normal except as noted SPEECH: speech normal S ENSORY EXAM: No sensory level loss detected MOTOR EXAM: 5/5 motor strength present throughout and Normal motor muscle tone present throughout Psych: COMMON NORMALS: speech normal APPEARANCE: Yes grossly normal and Yes well kempt ACTIVITY/MOTOR BEHAVIOR: Yes appropriate eye contact SPEECH: Y es normal speech MOOD & AFFECT: Yes euthymic mood THOUGHT PROCESS: d isorganized, confused and Tangential thought process present THOUGHT CONTENT: Yes Suicidality present and No Homicidality present ATTENTION/CONCENTRATION: Yes attention grossly intact Skin: COMMON NORMALS: no rashes or lesions noted GENERAL SKIN EXAM: no rashes or lesions noted Data 04/25/23 04:32 04/25/23 04:32 A&P Assessment and plan (1) Gastric mass: (2) Epigastric pain: (3) Iron deficiency anemia: Qualifiers: Iron deficiency anemia type: chronic blood loss Qualified Code(s): D 50.0 - Iron deficiency anemia secondary to blood loss (chronic) (4) GERD (gastroesophageal reflux disease): Qualifiers: Esophagitis presence: without esophagitis Qualified Code(s): K21.9 - Gastro-esophageal reflux disease without esophagitis (5) GERMAN (generalized anxiety disorder): Plan Dayana Landin is a 58 year old female w/ Generalized Anxiety disorder (GERMAN), Iron deficiency anemia, and GERD who presents to [facility]'s ED on 04/23/2023 w/ complaints of dizziness, falls, and abdominal pain. In the ED, her vital signs were within normal limits. Her labs are significant for a Hgb of 7.4, hypokalemia of 3.1, and an iron saturation of 8.7%. A CXR was done that showed no acute abnormalities. A CT abdomen and pelvis w/ contrast was done that showed concern for a GI/biliary tract malignancy and lymphadenopathy, as well as small L. adrenal adenomas. The ED contacted the patient's general surgeon, Dr. Basilio, who did her previous EGDs and colonoscopies. There is a plan to take her for an EGD. She was given 80mg IV Pantoprazole and admitted. #Iron deficiency anemia: - Per Gen Surg's notes, she did not tolerate iron infusion well in the past. #Possible GI Malignancy: s/p EGD w/ biopsy on 04/24/2023. On clear liquid diet. Advance as tolerated. #GERD - Switch to Pantoprazole po BID #GERMAN: Hold Buspirone #Hypokalemia: Monior K+ levels and replace prn #Frequent Falls: Likely due to her iron deficiency anemia. PT/OT #Suicidal ideation: She denies this. Discontinued the sitter. DVT ppx: SCD Attestations 2 Medical Necessity Statement*: Advancing diet. Per GI. Coding Level of Care Code 84013 Diagnoses Gastric mass K31.89 Epigastric pain R10.13 Iron deficiency anemia due to chronic blood loss D50.0 Iron deficiency anemia type: chronic blood loss Gastroesophageal reflux disease without esophagitis K21.9 Esophagitis presence: without esophagitis GERMAN (generalized anxiety disorder) F41.1
--- NOTE | 2023-04-24 11:58 | ANES.PREANE2 ---
Pre-Anesthetic Assessment Height/Weight: Height 1.5 m Weight 49.895 kg Temp Pulse Resp BP Pulse Ox O2 Del Method 98.2 F 83 16 120/71 99 Room Air 04/24/23 07:27 04/24/23 07:27 04/24/23 07:27 04/24/23 07:27 04/24/23 07:27 04/24/23 07:27 Operation Date: 04/24/23 12:00 Proposed Procedures p EGD(Not Applicable) - Konstantin Basilio DO Familial anesthetic complications: None Was Beta Ranjan taken within 24 hours: N/A Was Clonidine taken within 24 hours: N/A Last intake: Intake Last Liquid Date 04/23/23 Last Solid Date 04/23/23 Social No alcohol and No tobacco Exam alert, oriented x 3, clear to auscultation bilaterally and regular rate & rhythm Airway Mallampati: Class II Dentition: chipped Pulmonary Sleep Apnea CV/HEM Hypertension Metabolic Diabetes Mellitus and Hyperlipidemia Anesthetic Plan ASA status: 3 Anesthesia: MAC Risk of > 500 ml blood loss (7ml/kg in children): No Medications/Allergies Home Medications Medication Instructions Recorded Confirmed Last Taken Type escitalopram oxalate 20 mg tablet 20 mg PO QPM #30 tabs 02/07/23 04/23/23 2 Weeks Ago Rx ~04/09/23 pantoprazole 40 mg tablet,delayed 40 mg PO DAILY #30 tabs 03/21/23 04/23/23 2 Weeks Ago Rx release ~04/09/23 Anxiety And Stress Relief Tabs 1 tab PO BID PRN Anxiety 04/23/23 04/23/23 Unknown History ibuprofen 200 mg tablet (Advil) 400 - 600 mg PO Q6H PRN Pain 04/23/23 04/23/23 Unknown History Allergies Allergy/AdvReac Type Severity Reaction Status Date / Time No Known Allergies Allergy Verified 04/23/23 12:34 Current Medications Generic Name Dose Route Start Last Admin Trade Name Freq PRN Reason Stop Dose Admin Docusate Sodium 100 mg 04/23/23 18:00 04/24/23 08:59 Docusate Sodium 100 Mg Capsule PO 100 mg BID JOSSE Administration Pantoprazole Sodium 40 mg 04/23/23 17:00 04/24/23 06:[address] 40 Mg Tablet PO Not Given [facility] Medical History No pertinent past medical history neghx:thyroid,dvt/pe PCP: Pierre Type 2 diabetes mellitus, without long-term current use of insulin Dyslipidemia Hypertension Surgical History Hx of colonoscopy with polypectomy No pertinent past surgical history Family History Mother Diabetes Stroke Family/Other Diabetes nephew Father Hypertension Denies family history of Colon cancer Ovarian cancer Heart disease Hyperlipidemia Breast cancer Uterine cancer Thyroid disease Social History Smoking and tobacco/nicotine status: never used tobacco/nicotine Alcohol intake: former Substance/Drug Use: never Data Anesthesia 04/24/23 04:06 04/24/23 04:06 Short CBC 04/23/23 04/24/23 Range/Units 12:05 04:06 WBC 9.83 7.84 (3.29-11.43) 10^3/uL Hgb 7.40 L 8.10 L (11.27-16.99) g/dL Hct 25.3 L 26.2 L (36-47) % MCV 86.3 84.8 L (85-98) fl Plt Count 460 H 447 H (157-399) 10^3/cmm Neut % (Auto) 74.9 65.7 % Neut # (Auto) 7.36 5.15 (1.8-7.7) 10^3/uL BMP 04/23/23 04/24/23 12:05 04:06 Sodium 141 145 Potassium 3.1 L 3.5 Chloride 102 106 Carbon Dioxide 25 27 BUN 26 H 21 H Creatinine 0.6 0.5 Glucose 159 H 87 Calcium 8.9 8.6 Liver Function 04/23/23 04/24/23 Range/Units 12:05 04:06 Total Bilirubin 0.2 1.6 H (0.15-1.2) mg/dL AST 18 15 (0-32) U/L ALT 10 11 (0-33) U/L Alkaline Phosphatase 61 63 (35-105) U/L Albumin 2.9 L 2.8 L (3.5-5.2) g/dL Blood Bank 04/23/23 17:12 Blood Type A Negative Rho(D) Type Negative Antibody Screen Negative Coags 04/24/23 04:06 PT 14.40 INR 1.09 APTT 31.5 Cardiac Studies: Sestamibi Stress Test (Cardiology) 01/07/21
[2023-04-24] MEDS: sodium chloride 0.9% 1,000 ML 30 ML IV (12:03)
--- NOTE | 2023-04-24 12:40 | ANE.PACU2 ---
Inpatient post-anesthesia follow up: Airway intact: Yes Vital signs: Temperature 97.0 F Pulse Rate 72 Respiratory Rate 18 Blood Pressure 136/75 Pulse Oximetry 100 Oxygen Delivery Me thod Room Air Oxygen Flow Rate Fraction of Inspir ed Oxygen Hydration adequate: Yes Nausea and vomiting: No Pain level: 1 Mental status: Baseline
[2023-04-24] MEDS: pantoprazole DR 40 mg Tablet PO (16:32)
[2023-04-24] MEDS: acetaminophen 325 mg Tablet 650 MG PO (21:01)
[2023-04-24 21:22] LABS: Glucose Point of Care 113 mg/dL (70-110)
[2023-04-25] VITALS: BP 117/68; PULSE 56; RESP 16; TEMP 36.6; O2SAT 100
[2023-04-25 02:28] VITALS: PULSE 61
[2023-04-25 04:00] VITALS: BP 116/65; PULSE 59; RESP 17; TEMP 36.5; O2SAT 99
[2023-04-25 04:39] LABS: Basophils % 0.5 %; Eosinophils # 0.2 10^3/uL (0.0-0.8); Eosinophils % 3.7 %; Hematocrit 25.8 % (36-47); Lymphocytes # 1.9 10^3/uL (0.8-4.8); Lymphocytes % 32.4 %; Mean Corpuscular Hemoglobin 26.3 pg (27-33); Mean Corpuscular Volume 84.9 fl (85-98); Mean Platelet Volume 8.4 fL (7.4-10.4); Monocytes # 0.5 10^3/uL (0.2-0.9); Monocytes % 7.6 %; Neutrophils # 3.27 10^3/uL (1.8-7.7); Neutrophils % 55.3 %; Nucleated Red Blood Cells % 0 %; Platelet Count 381 10^3/cmm (157-399); Red Blood Count 3.04 10^6/uL (3.85-5.65); Red Cell Distribution Width 16.8 % (12.1-15.1); White Blood Count 5.92 10^3/uL (3.29-11.43)
[2023-04-25 05:04] LABS: Alanine Aminotransferase 11 U/L (0-33); Albumin Level 2.8 g/dL (3.5-5.2); Alkaline Phosphatase 62 U/L (35-105); Anion Gap 13.4 (5-19); Aspartate Amino Transferase 16 U/L (0-32); Blood Urea Nitrogen 11 mg/dL (6-20); Calcium 8.5 mg/dL (8.5-10.5); Carbon Dioxide 29 mmol/L (22-29); Chloride 106 mmol/L (98-107); Globulin 2.7 g/dL (1.3-4.6); Glomerular Filtration Rate 126.7 mL/min (90-130); Glucose 102 mg/dL (65-115); Osmolality Calculated 300 mOsm/kg (285-295); Potassium 3.4 mmol/L (3.5-5.1); Sodium 145 mmol/L (136-145); Total Bilirubin 0.5 mg/dL (0.15-1.2); Total Protein 5.5 g/dL (6.6-8.7)
[2023-04-25 06:43] LABS: Glucose Point of Care 89 mg/dL (70-110)
[2023-04-25 07:35] VITALS: BP 131/62; PULSE 63; RESP 18; TEMP 36.6; O2SAT 98
[2023-04-25] MEDS: pantoprazole DR 40 mg Tablet PO ×2 (08:16→17:44)
[2023-04-25] MEDS: docusate sodium 100 mg Capsule PO ×2 (08:16→17:44)
[2023-04-25 11:31] LABS: Glucose Point of Care 97 mg/dL (70-110)
[2023-04-25 12:00] VITALS: BP 133/75; PULSE 72; RESP 16; TEMP 36.8; O2SAT 100
[2023-04-25 16:00] VITALS: BP 122/72; PULSE 98; RESP 19; TEMP 36.8; O2SAT 97
[2023-04-25 16:46] LABS: Glucose Point of Care 98 mg/dL (70-110)
--- NOTE | 2023-04-25 17:09 | PM.DCS ---
Discharge Providers Date of Admission: 04/23/23 15:01 Date of Discharge: April 25, 2023 Attending Provider at Admission: Haleigh Block MD Attending Provider at Discharge: Haleigh Block MD Primary Care Provider: Julio Jay DO Diagnoses at Discharge Discharge Diagnosis (1) Gastric mass: Status: Inactive (2) Epigastric pain: Status: Resolved (3) Iron deficiency anemia: Status: Inactive Qualifiers: Iron deficiency anemia type: chronic blood loss Qualified Code(s): D50.0 - Iron deficiency anemia secondary to blood loss (chronic) (4) GERD (gastroesophageal reflux disease): Status: Inactive Qualifiers: Esophagitis presence: without esophagitis Qualified Code(s): K21.9 - Gastro-esophageal reflux disease without esophagitis (5) GERMAN (generalized anxiety disorder): Status: Inactive Reason for Visit Reason for Visit: body aches, was passing out Hospital Course Hospital Course Dayana Landin is a 58 year old female w/ Generalized Anxiety disorder (GERMAN), Iron deficiency anemia, and GERD who presents to [facility] ED on 04/23/2023 w/ complaints of dizziness, falls, and abdominal pain. In the ED, her vital signs were within normal limits. Her labs are significant for a Hgb of 7.4, hypokalemia of 3.1, and an iron saturation of 8.7%. A CXR was done that showed no acute abnormalities. A CT abdomen and pelvis w/ contrast was done that showed concern for a GI/biliary tract malignancy and lymphadenopathy, as well as small L. adrenal adenomas. The ED contacted the patient's general surgeon, Dr. Basilio, who did her previous EGDs and colonoscopies. She was given 80mg IV Pantoprazole and admitted. She is s/p an EGD w/ biopsy on 04/29/2023. She was started on a clear liquid diet, and it was advanced as tolerated. She was discharged on 04/25/2023 to follow-up with her surgeon. Of note, on admission, there was concern by the nursing staff that she was passively suicidal, but she did not have a plan, so she was given a sitter. On further questioning, it appears that it was a misunderstanding, so the sitter was discontinued. Other issues addressed during the hospitalization include #Iron deficiency anemia - Per Gen Surg's notes, she did not tolerate iron infusion well in the past. Outpatient management. #Possible GI Malignancy: s/p EGD w/ biopsy on 04/24/2023. #GERD #GERMAN #Hypokalemia #Frequent Falls #Suicidal ideation: She denies this. Discontinued the sitter. Physical Exam Const: GENERAL APPEARANCE: cooperative, comfortable, well kempt, ill appearing and frail appearing NUTRITIONAL APPEARANCE: thin ORIENTATION/CONSCIOUSNESS: Yes awake, Yes oriented to person, Yes oriented to place and Yes confused OTHER: She is less pale in her legs. HENMT: COMMON NORMALS: normocephalic, atraumatic and external ears normal HEAD & SCALP: normocephalic and atraumatic EXTERNAL EAR: Yes external ears normal MOUTH: Normal oral and palatal mucosa present THROAT: posterior oropharynx normal Eye: COMMON NORMALS: Equal, round and reactive pupils present and conjunctivae normal CONJUNCTIVA: Yes conjunctivae normal PUPIL: Yes Equal, round and reactive pupils present EOM: No EOM abnormal Neck/C-Spine: COMMON NORMALS: Thyroid normal GENERAL: Yes normal visual inspection and Yes trachea midline THYROID: Thyroid normal CAROTIDS: No bruit Lymph: LYMPHATIC: No lymphadenopathy Resp: OTHER: CTAB with no wheezes rales or rhonchi. Cardio: COMMON NORMALS: regular rate, regular rhythm, S1 normal heart sound present and S2 normal heart sound present RATE: regular rate RHYTHM: regular rhythm HEART SOUNDS: S1 normal heart sound present, S2 normal heart sound present, no click, no gallops, no murmurs and no rubs BRUITS: no carotid bruits PERIPHERAL PULSES: radial pulses present and dorsalis pedis present GI: OTHER: Soft, nontender, nondistended, no rigidity, rebound tenderness, organomegaly appreciated. Bowel sounds positive. Extremity: GENERAL: No clubbing, No cyanosis and No edema Neuro: SENSORIUM/ORIENTATION: Yes oriented to person and Yes oriented to place CRANIAL NERVES: Yes CN normal except as noted SPEECH: speech normal SENSORY EXAM: No sensory level loss detected MOTOR EXAM: 5/5 motor strength present throughout and Normal motor muscle tone present throughout Psych: COMMON NORMALS: speech normal APPEARANCE: Yes grossly normal and Yes well kempt ACTIVITY/MOTOR BEHAVIOR: Yes appropriate eye contact SPEECH: Yes normal speech MOOD & AFFECT: Yes euthymic mood THOUGHT PROCESS: disorganized, confused and Tangential thought process present THOUGHT CONTENT: Yes Suicidality present and No Homicidality present ATTENTION/CONCENTRATION: Yes attention grossly intact Skin: COMMON NORMALS: no rashes or lesions noted GENERAL SKIN EXAM: no rashes or lesions noted Discharge Data Studies Completed and Pending Completed Studies During Hospitalization Category Date Time Status CT abdomen pelvis w con* [id number] Stat Cat Scan 04/23/23 12:[address] head wo con* [id number] Stat Cat Scan 04/23/23 12:17 Completed XR chest 1V portable [id number] Stat Exams 04/23/23 11:07 Completed Pending at discharge Category Date Time Status Complete Blood Count w/Auto AM LABS Lab 04/26/23 04:00 Ordered Comprehensive Metabolic Panel AM LABS Lab 04/26/23 04:00 Ordered Pathology: Surgical [PTH] Routine Pth 04/24/23 12:23 Received Laboratory Results WBC 5.92 10^3/uL (3.29-11.43) 04/25/23 04:32 RBC 3.04 10^6/uL (3.85-5.65) L 04/25/23 04:32 Hgb 8.00 g/dL (11.27-16.99) L 04/25/23 04:32 Hct 25.8 % (36-47) L 04/25/23 04:32 MCV 84.9 fl (85-98) L 04/25/23 04:32 MCH 26.3 pg (27-33) L 04/25/23 04:32 MCHC 31.0 g/dL (30-55) 04/25/23 04:32 RDW 16.8 % (12.1-15.1) H 04/25/23 04:32 Plt Count 381 10^3/cmm (157-399) 04/25/23 04:32 MPV 8.4 fL (7.4-10.4) 04/25/23 04:32 Neut % (Auto) 55.3 % 04/25/23 04:32 Lymph % (Auto) 32.4 % 04/25/23 04:32 Day % (Auto) 7.6 % 04/25/23 04:32 Eos % (Auto) 3.7 % 04/25/23 04:32 Baso % (Auto) 0.5 % 04/25/23 04:32 Neut # (Auto) 3.27 10^3/uL (1.8-7.7) 04/25/23 04:32 Lymph # (Auto) 1.9 10^3/uL (0.8-4.8) 04/25/23 04:32 Day # (Auto) 0.5 10^3/uL (0.2-0.9) 04/25/23 04:32 Eos # (Auto) 0.2 10^3/uL (0.0-0.8) 04/25/23 04:32 Baso # (Auto) 0.0 10^3/uL (0.0-0.1) 04/25/23 04:32 Nucleated RBC % (auto) 0 % 04/25/23 04:32 Nucleated RBCs # 0.0 /100WBC 04/25/23 04:32 PT 14.40 SECONDS (12.1-14.9) 04/24/23 04:06 INR 1.09 (0.8-1.2) 04/24/23 04:06 APTT 31.5 SECONDS (23.9-36.7) 04/24/23 04:06 Sodium 145 mmol/L (136-145) 04/25/23 04:32 Potassium 3.4 mmol/L (3.5-5.1) L 04/25/23 04:32 Chloride 106 mmol/L (98-107) 04/25/23 04:32 Carbon Dioxide 29 mmol/L (22-29) 04/25/23 04:32 Anion Gap 13.4 (5-19) 04/25/23 04:32 BUN 11 mg/dL (6-20) 04/25/23 04:32 Creatinine 0.5 mg/dL (0.5-0.9) 04/25/23 04:32 GFR Calculation 126.7 mL/min (90-130) 04/25/23 04:32 Glucose 102 mg/dL (65-115) 04/25/23 04:32 POC Glucose 98 mg/dL (70-110) 04/25/23 16:35 Calculated Osmolality 300 mOsm/kg (285-295) H 04/25/23 04:32 Calcium 8.5 mg/dL (8.5-10.5) 04/25/23 04:32 Phosphorus 3.3 mg/dL (2.5-4.5) 04/24/23 04:06 Magnesium 2.0 mg/dL (1.7-2.3) 04/24/23 04:06 Iron 21 ug/dL (37-145) L 04/23/23 12:05 TIBC 239 mcg/dl 04/23/23 12:05 % Saturation 8.7 % (20-50) L 04/23/23 12:05 Unsat Iron Binding 218 ug/dL (112-347) 04/23/23 12:05 Total Bilirubin 0.5 mg/dL (0.15-1.2) 04/25/23 04:32 AST 16 U/L (0-32) 04/25/23 04:32 ALT 11 U/L (0-33) 04/25/23 04:32 Alkaline Phosphatase 62 U/L (35-105) 04/25/23 04:32 Total Protein 5.5 g/dL (6.6-8.7) L 04/25/23 04:32 Albumin 2.8 g/dL (3.5-5.2) L 04/25/23 04:32 Globulin 2.7 g/dL (1.3-4.6) 04/25/23 04:32 Random Cortisol 22.63 ug/dL (2.47-19.5) H 04/23/23 12:05 Blood Type A Negative 04/23/23 17:12 Rho(D) Type Negative 04/23/23 17:12 Antibody Screen Negative 04/23/23 17:12 Crossmatch See Detail 04/23/23 17:12 Vitals Last Vital Signs Temp 98.2 F 04/25/23 12:00 Pulse 72 04/25/23 12:00 Resp 16 04/25/23 12:00 BP 133/75 04/25/23 12:00 Pulse Ox 100 04/25/23 12:00 O2 Del Method Room Air 04/25/23 04:00 Discharge Plan Discharge Patient Disposition: Home Condition: Stable Prescriptions: Continued escitalopram oxalate 20 mg tablet 20 mg PO QPM Qty: 30 5RF Anxiety And Stress Relief Tabs 1 tab PO BID PRN (Reason: Anxiety) Changed pantoprazole 40 mg tablet,delayed release (DR/EC) 40 mg PO BIDAC Qty: 30 5RF Discontinued ibuprofen [Advil] 200 mg Tablet 400 - 600 mg PO Q6H PRN (Reason: Pain) Discharge Orders: Discharge Order (Routine); Ordered 04/25/23 Ordered By: Haleigh Block Referrals: Julio Jay DO [Primary Care Provider] - 04/30/23 11:00 am Patient Instructions: Anemia, Iron Rich Diet (DC), Iron Deficiency Anemia (GEN), Melena (GEN), GI Discharge Instructions, Opioid Safety Discharge Attestations Time Spent in Discharge Care*: greater than 30 min Quality Metrics Clinical Quality Measures [ No reported AMI, CVA or VTE this stay] Coding Level of Care Code 01239 Diagnoses Gastric mass K31.89 Epigastric pain R10.13 Iron deficiency anemia due to chronic blood loss D50.0 Iron deficiency anemia type: chronic blood loss Gastroesophageal reflux disease without esophagitis K21.9 Esophagitis presence: without esophagitis GERMAN (generalized anxiety disorder) F41.1
== END 2023-04-25 18:04 | disposition home or self-care (01) | DRG 376 ==
LOC: ER 13:18 → MEDSURG 14:47
PROVIDERS: Emergency Medicine; Surgery; Admitting Provider Internal Medicine; Emergency Provider Family Medicine; PCP Family Medicine; Visit Provider Internal Medicine
PROC: 0DJ08ZZ Inspection of Upper Intestinal Tract, Via Natural or Artificial Opening Endoscopic (ICD-10-PCS; CPT 43235; principal; 2023-04-24 12:00)
DX: C16.9 Malignant neoplasm of stomach, unspecified (principal); D50.9 Iron deficiency anemia, unspecified; E11.8 Type 2 diabetes mellitus with unspecified complications; Z79.4 Long term (current) use of insulin; E78.5 Hyperlipidemia, unspecified; I10 Essential (primary) hypertension; K21.9 Gastro-esophageal reflux disease without esophagitis; F41.1 Generalized anxiety disorder; R29.6 Repeated falls; E87.6 Hypokalemia
CPT/HCPCS: 36415; 36416; 43239; 70450; 71045; 74177; 80053; 82533; 82962; 83540; 83550; 83735; 84100; 85025; 85610; 85730; 86850; 86900; 86920; 88305; 88312; 88342; 93005; 96374; 97110; 97161; 97165; 97535; 99285; C9113; J2704; J7030; P9040; Q9967

== ENCOUNTER → 2023-06-26 11:05 | Outpatient (BNVA) | payer OTHER, SELFPAY | PROVIDERS: PCP Family Medicine | DX: K25.9 Gastric ulcer, unspecified as acute or chronic, without hemorrhage or perforation (principal); K25.0 Acute gastric ulcer with hemorrhage | CPT/HCPCS: 80053; 85025 ==

== ENCOUNTER 2023-08-13 14:44 | Emergency (ER) | payer OTHER, SELFPAY ==
[2023-08-13 14:50] VITALS: BP 101/63; PULSE 85; RESP 16; TEMP 36.4; O2SAT 100; BMI 28.7
--- NOTE | 2023-08-13 16:03 | PC.PHAR ---
pt states she takes care of her own medications-pt states she takes protonix 40mg daily ext shows last filled 40mg bid on 08/09/23 30d.s
--- NOTE | 2023-08-13 16:08 | ED_ITS ---
HPI - Abdominal Pain 2 General: Chief Complaint: Abdominal Pain Stated Complaint: abd pain Time Seen by Provider: 08/13/23 15:57 Source: patient Mode of arrival: ambulatory Limitations: no limitations History of Present Illness: 58-year-old female states that since Sun she has noticed some black tarry stools at times. She denies any abdominal pain she denies any weakness denies any fevers. She denies any diarrhea or vomiting she denies any worse improved factors no lightheadedness. Associated Symptoms: Reports melena; Denies chills, diarrhea, fever(s), nausea and vomiting Review of Systems 2 Const: Denies: fever(s), chills, body aches or change in appetite ENMT: Denies: throat pain or dental pain Card: Denies: chest pain Resp: Denies: dyspnea GI: Reports: melena; Denies: abdominal pain, nausea, vomiting or diarrhea Musc: Denies: neck pain or back pain Skin/Breast: Denies: rash Neuro: Denies: headache(s) PFSH ED 2 PFSH: Medical History Gastric mass GERMAN (generalized anxiety disorder) Iron deficiency anemia Microcytic anemia GERD (gastroesophageal reflux disease) No pertinent past medical history neghx:thyroid,dvt/pe PCP: Pierre Type 2 diabetes mellitus, without long-term current use of insulin Dyslipidemia Hypertension Surgical History Hx of colonoscopy with polypectomy No pertinent past surgical history Family History Mother Diabetes Stroke Family/Other Diabetes nephew Father Hypertension Denies family history of Colon cancer Ovarian cancer Heart disease Hyperlipidemia Breast cancer Uterine cancer Thyroid disease Social History Smoking and tobacco/nicotine status: never used tobacco/nicotine Alcohol intake: former Substance/Drug Use: never Current occupation: EVS AT [employer] Physical Exam 2 Const: COMMON NORMALS: no acute distress, patient oriented x3 and healthy appearing HENMT: COMMON NORMALS: normocephalic and atraumatic HEAD & SCALP: n ormocephalic and atraumatic Neck/C-Spine: COMMON NORMALS: full ROM and supple Chest: COMMONS NORMALS: normal inspection of the chest Resp: COMMON NORMALS: normal respiratory effort Cardio: COMMON NORMALS: regular rate RATE: regular rate GI: COMMON NORMALS: Normal to inspection, nondistended, normoactive bowel sounds present, Soft to palpation, non-tender and no masses PALPATION: Yes Soft to palpation RECTAL EXAM: visual inspection normal, normal sphincter tone, stool normal and No heme positive stool Extremity: COMMON NORMALS: normal to inspection and full ROM Neuro: COMMON NORMALS: patient oriented x3, moves all extremities and no focal motor deficits Psych: COMMON NORMALS: mental status grossly normal, Normal thought process present and cooperative THOUGHT PROCESS: Normal thought process present Skin: COMMON NORMALS: no rashes or lesions noted and no wounds GENERAL SKIN EXAM: no rashes or lesions noted Course 2 Vital Signs: Vital signs: Vital Signs Temperature 97.6 F 08/13/23 14:50 Pulse Rate 73 08/13/23 16:34 Respiratory Rate 16 08/13/23 14:50 Blood Pressure 116/66 08/13/23 16:34 Pulse Oximetry 96 08/13/23 16:34 Oxygen Delivery Me thod Room Air 08/13/23 16:34 MDM - Abdominal Pain Medical Decision Making Patient presents here with concern for black tarry stool CT did show colitis my rectal exam showed no bloody stools here hemoglobin is at her baseline and informed her of the CT findings that she likely needs an outpatient MRI through her PCP we will get her follow-up with general surgery to she is return if worsening will place her on [facility] Medical Records I reviewed the patient's medical records. Lab Data I reviewed the patient's lab results. 08/13/23 16:20 08/13/23 16:20 Labs/Radiology: Radiology Impressions Abdomen/Pelvis CT 08/13/23 16:32 IMPRESSION: 1. Findings consistent with mild colitis in the mid transverse colon to the rectum. 2. Stable decreased density surrounding a branch of the left portal vein in the lateral left hepatic lobe. Soft tissue density again extends along the inferolateral left hepatic lobe into the gastrohepatic ligament and abuts the wall of the antrum of the stomach. Clinical correlation recommended to rule out possible mass emanating either from the liver or the stomach. MRI of the abdomen may be obtained for further evaluation on a nonemergent basis, if the patient has no contraindication. 3. Two indeterminate low-density foci in the spleen and left adrenal gland are stable. Again, evaluation with MRI of the abdomen on a non-emergent basis is recommended, if the patient has no contraindications to MRI. 4. Stable nonobstructing right renal stone. 5. Probable degenerating cyst in the left ovary. 6. Stable mildly enlarged lymph nodes in the gastrohepatic ligament, along the celiac axis, and in the abdomen anterior to the distal stomach. 7. Incidental/nonacute findings are listed in the report. Laboratory Results WBC 7.87 10^3/uL (3.29-11.43) 08/13/23 16:20 RBC 3.75 10^6/uL (3.85-5.65) L 08/13/23 16:20 Hgb 8.40 g/dL (11.27-16.99) L 08/13/23 16:20 Hct 29.8 % (36-47) L 08/13/23 16:20 MCV 79.5 fl (85-98) L 08/13/23 16:20 MCH 22.4 pg (27-33) L 08/13/23 16:20 MCHC 28.2 g/dL (30-55) L 08/13/23 16:20 RDW 16.2 % (12.1-15.1) H 08/13/23 16:20 Plt Count 423 10^3/cmm (157-399) H 08/13/23 16:20 MPV 8.4 fL (7.4-10.4) 08/13/23 16:20 Neut % (Auto) 79.4 % 08/13/23 16:20 Lymph % (Auto) 11.6 % 08/13/23 16:20 [place] % (Auto) 7.4 % 08/13/23 16:20 Eos % (Auto) 0.9 % 08/13/23 16:20 Baso % (Auto) 0.3 % 08/13/23 16:20 Neut # (Auto) 6.26 10^3/uL (1.8-7.7) 08/13/23 16:20 Lymph # (Auto) 0.9 10^3/uL (0.8-4.8) 08/13/23 16:20 [place] # (Auto) 0.6 10^3/uL (0.2-0.9) 08/13/23 16:20 Eos # (Auto) 0.1 10^3/uL (0.0-0.8) 08/13/23 16:20 Baso # (Auto) 0.0 10^3/uL (0.0-0.1) 08/13/23 16:20 Nucleated RBC % (auto) 0 % 08/13/23 16:20 Nucleated RBCs # 0.0 /100WBC 08/13/23 16:20 Sodium 141 mmol/L (136-145) 08/13/23 16:20 Potassium 3.2 mmol/L (3.5-5.1) L 08/13/23 16:20 Chloride 104 mmol/L (98-107) 08/13/23 16:20 Carbon Dioxide 27 mmol/L (22-29) 08/13/23 16:20 Anion Gap 13.2 (5-19) 08/13/23 16:20 BUN 9 mg/dL (6-20) 08/13/23 16:20 Creatinine 0.6 mg/dL (0.5-0.9) 08/13/23 16:20 GFR Calculation 102.7 mL/min (90-130) 08/13/23 16:20 Glucose 99 mg/dL (65-115) 08/13/23 16:20 Calculated Osmolality 291 mOsm/kg (285-295) 08/13/23 16:20 Calcium 9.0 mg/dL (8.5-10.5) 08/13/23 16:20 Total Bilirubin 0.3 mg/dL (0.15-1.2) 08/13/23 16:20 AST 9 U/L (0-32) 08/13/23 16:20 ALT 6 U/L (0-33) 08/13/23 16:20 Alkaline Phosphatase 68 U/L (35-105) 08/13/23 16:20 Total Protein 6.1 g/dL (6.6-8.7) L 08/13/23 16:20 Albumin 3.5 g/dL (3.5-5.2) 08/13/23 16:20 Globulin 2.6 g/dL (1.3-4.6) 08/13/23 16:20 Lipase 38 U/L (13-60) 08/13/23 16:20 Urine Color Dark yellow (Yellow) 08/13/23 14:56 Urine Appearance Clear (CLEAR) 08/13/23 14:56 Urine pH 5 (5-7) 08/13/23 14:56 Ur Specific [place] 1.020 (1.005-1.030) 08/13/23 14:56 Urine Protein Trace (Negative) 08/13/23 14:56 Urine Glucose (UA) Norm (Normal) 08/13/23 14:56 Urine Ketones 2+ (Negative) H 08/13/23 14:56 Urine Blood Neg (Negative) 08/13/23 14:56 Urine Nitrate Negative (Negative) 08/13/23 14:56 Urine Bilirubin 1+ (Negative) H 08/13/23 14:56 Urine Urobilinogen 1 mg/dL (Negative) H 08/13/23 14:56 Ur Leukocyte Esterase Trace (Negative) H 08/13/23 14:56 Urine RBC None /hpf (0-2) 08/13/23 14:56 Urine WBC 0-4 /hpf (0-5) H 08/13/23 14:56 Ur Squamous Epith Cells 5-10 /hpf (0-5) H 08/13/23 14:56 Calcium Oxalate Crystal 55-80 /hpf H 08/13/23 14:56 Amorphous Sediment Not Reportable 08/13/23 14:56 Urine Bacteria Trace /hpf (NONE) 08/13/23 14:56 All radiology interpretation(s) finalized by discharge Discharge Plan Discharge Patient Disposition: Home Clinical Impression: Colitis Condition: Stable Prescriptions: New metronidazole 500 mg tablet 500 mg PO Q8H 7 Days Qty: 21 0RF Cipro 500 mg tablet 500 mg PO BID Qty: 14 0RF No Action ondansetron HCl 4 mg tablet 4 mg PO Q8H PRN (Reason: Nausea And Vomiting) Imodium 2 mg Capsule 2 mg PO .ONE TIME DOSE pantoprazole 40 mg tablet,delayed release (DR/EC) 40 mg PO DAILY escitalopram oxalate 20 mg tablet 20 mg PO BEDTIME Discharge Orders: Discharge ED (Routine); Ordered 08/13/23 Ordered By: Rajni Erazo Referrals: Julio Jay DO [Primary Care Provider] - 1-3 days Riki Mancuso MD [Physician] - 1-3 days Discharge Diet: Advance as tolerated Discharge Activity: Resume usual activity Patient Instructions: Colitis (ED) Coding Level of Care Code ED Controls Technician for Walter Baca
[2023-08-13 16:30] LABS: Basophils % 0.3 %; Eosinophils # 0.1 10^3/uL (0.0-0.8); Eosinophils % 0.9 %; Hematocrit 29.8 % (36-47); Lymphocytes # 0.9 10^3/uL (0.8-4.8); Lymphocytes % 11.6 %; Mean Corpuscular HGB Conc 28.2 g/dL (30-55); Mean Corpuscular Hemoglobin 22.4 pg (27-33); Mean Corpuscular Volume 79.5 fl (85-98); Mean Platelet Volume 8.4 fL (7.4-10.4); Monocytes # 0.6 10^3/uL (0.2-0.9); Monocytes % 7.4 %; Neutrophils # 6.26 10^3/uL (1.8-7.7); Neutrophils % 79.4 %; Nucleated Red Blood Cells % 0 %; Platelet Count 423 10^3/cmm (157-399); Red Blood Count 3.75 10^6/uL (3.85-5.65); Red Cell Distribution Width 16.2 % (12.1-15.1); White Blood Count 7.87 10^3/uL (3.29-11.43)
--- NOTE | 2023-08-13 16:32 | CTR_ITS ---
PROCEDURE INFORMATION: Exam: CT Abdomen And Pelvis With Contrast Exam date and time: 08/13/2023 5:22 PM Age: 58 years old Clinical indication: Abdominal pain; Localized; Other: Rlq & llq; Prior surgery; Surgery date: 6+ months; Surgery type: Polypectomy; Additional info: Abd pain TECHNIQUE: Imaging protocol: Computed tomography of the abdomen and pelvis with contrast. Radiation optimization: All CT scans at this facility use at least one of these dose optimization techniques: automated exposure control; mA and/or kV adjustment per patient size (includes targeted exams where dose is matched to clinical indication); or iterative reconstruction. Contrast material: OMNI 350; Contrast volume: 75 ml; Contrast route: INTRAVENOUS (IV); COMPARISON: CT abdomen pelvis w con* [id number] 04/23/2023 1:23 PM RADIATION DOSE METRICS: Total DLP (mGy-cm): 302.41 FINDINGS: Lungs: Visualized lungs are clear. Pleural spaces: No pleural effusion. Heart: Visualized portions of the heart are unremarkable. Liver: Hypodense lesion in the liver with imaging characteristics consistent with a hemangioma. This measures 1.1 x 1.0 cm, stable in size (series 3, image 9). Stable decreased density surrounding a branch of the left portal vein in the lateral left hepatic lobe. Soft tissue density again extends along the inferolateral left hepatic lobe into the gastrohepatic ligament and abuts the wall of the antrum of the stomach (series 6, image 34 and series 3, images 13-20). Gallbladder and bile ducts: The gallbladder is unremarkable. No biliary ductal dilatation. Pancreas: The pancreas is unremarkable. No pancreatic ductal dilatation. Spleen: Stable calcified granuloma in the spleen. Two indeterminate low-density foci in the spleen are stable. The larger measures 7.7 x 6.0 mm (series 3, images 14 and 18). Adrenal glands: The right adrenal gland is unremarkable. Two indeterminate foci in the left adrenal gland are stable. The larger measures 1.3 x 1.4 cm (series 3, images 17 and 19). Kidneys and ureters: Stable non-obstructing stone in the right kidney measuring 1.8 mm (series 3, image 28). Stable subcentimeter hypodense focus in the left kidney that is too small to characterize, however likely represents a small cyst. The right and left ureters are unremarkable. Stomach and bowel: No acute abnormality in the small bowel. There is mild wall thickening with surrounding inflammatory changes of the mid transverse colon through the rectum. Appendix: The appendix is visualized and is unremarkable. No findings to suggest acute appendicitis. Intraperitoneal space: No free intraperitoneal air. No ascites. No loculated fluid collections to suggest an abscess. Vasculature: No evidence for aortic aneurysm or aortic dissection. Hepatic veins, portal veins, splenic vein, and SMV are patent. Lymph nodes: Stable mildly enlarged lymph nodes in the gastrohepatic ligament, along the celiac axis, and in the abdomen anterior to the distal stomach. The largest of these measures 1.4 cm in short axis (series 3, image 15). Urinary bladder: The bladder is unremarkable for the degree of distension. Reproductive: The uterus is unremarkable. The right ovary is unremarkable. Left ovarian cyst with an enhancing wall, possibly representing a degenerating ovarian cyst. This measures 1.5 x 0.8 cm (series 3, image 59). Bones/joints: Bones are diffusely osteopenic. Mild degenerative changes in the visualized spine. Soft tissues: No acute abnormality in the extra-abdominal soft tissues. CT/CT abdomen pelvis w con* [id number] IMPRESSION: 1. Findings consistent with mild colitis in the mid transverse colon to the rectum. 2. Stable decreased density surrounding a branch of the left portal vein in the lateral left hepatic lobe. Soft tissue density again extends along the inferolateral left hepatic lobe into the gastrohepatic ligament and abuts the wall of the antrum of the stomach. Clinical correlation recommended to rule out possible mass emanating either from the liver or the stomach. MRI of the abdomen may be obtained for further evaluation on a nonemergent basis, if the patient has no contraindication. 3. Two indeterminate low-density foci in the spleen and left adrenal gland are stable. Again, evaluation with MRI of the abdomen on a non-emergent basis is recommended, if the patient has no contraindications to MRI. 4. Stable nonobstructing right renal stone. 5. Probable degenerating cyst in the left ovary. 6. Stable mildly enlarged lymph nodes in the gastrohepatic ligament, along the celiac axis, and in the abdomen anterior to the distal stomach. 7. Incidental/nonacute findings are listed in the report.
[2023-08-13 16:34] VITALS: BP 116/66; PULSE 73; O2SAT 96
[2023-08-13 16:45] LABS: Alanine Aminotransferase 6 U/L (0-33); Albumin Level 3.5 g/dL (3.5-5.2); Alkaline Phosphatase 68 U/L (35-105); Anion Gap 13.2 (5-19); Aspartate Amino Transferase 9 U/L (0-32); Blood Urea Nitrogen 9 mg/dL (6-20); Carbon Dioxide 27 mmol/L (22-29); Chloride 104 mmol/L (98-107); Globulin 2.6 g/dL (1.3-4.6); Glomerular Filtration Rate 102.7 mL/min (90-130); Glucose 99 mg/dL (65-115); Lipase 38 U/L (13-60); Osmolality Calculated 291 mOsm/kg (285-295); Potassium 3.2 mmol/L (3.5-5.1); Sodium 141 mmol/L (136-145); Total Bilirubin 0.3 mg/dL (0.15-1.2); Total Protein 6.1 g/dL (6.6-8.7)
[2023-08-13 17:15] LABS: Add Urine Microscopic? YES; Bacteria Urine TRACE /hpf; Bilirubin Urine 1+ (Negative); Blood Urine Neg (Negative); Glucose Urine UA Norm (Normal); Ketones Urine 2+ (Negative); Leukocyte Esterase Urine Trace (Negative); Nitrate Urine Negative (Negative); Protein Urine Trace (Negative); Urine Appearance Clear (CLEAR); Urine Color Dark Yellow (Yellow); Urobilinogen Urine 1 mg/dL (Negative); WBC Urine 0-4 /hpf (0-5); pH Urine 5 (5-7)
[2023-08-13 17:16] LABS: Add Urine Culture? No; Calcium Oxalate Crystals Urine 55-80 /hpf
[2023-08-13] MEDS: iohexol 350 mg/mL 500 mL Btl (per mL) IV (17:32)
[2023-08-13 18:24] VITALS: BP 139/84; PULSE 75; O2SAT 100
--- NOTE | 2023-08-15 09:22 | DCPLANNER ---
Message sent to General Surgery -colitis
== END 2023-08-13 18:26 | disposition home or self-care (01) ==
PROVIDERS: Emergency Provider Emergency Medicine; PCP Family Medicine
DX: K52.9 Noninfective gastroenteritis and colitis, unspecified (principal); E11.9 Type 2 diabetes mellitus without complications; E78.5 Hyperlipidemia, unspecified; I10 Essential (primary) hypertension
CPT/HCPCS: 36415; 74177; 80053; 81001; 83690; 85025; 99285; Q9967

== ENCOUNTER 2023-08-16 15:19 | Inpatient (IN) | payer OTHER, SELFPAY ==
[2023-08-16 15:20] VITALS: BP 122/80; PULSE 88; RESP 24; TEMP 37; O2SAT 100; BMI 19.8
--- NOTE | 2023-08-16 15:27 | ECG_ITS ---
[facility] Test Date: 2023-08-16 Pat Name: Dayana Landin Department: Room: Gender: Female Welfare Adviser: : 1965 Requested By: Khalif Stoll Order Number: [id number] Lauri MD: Chelle Fuller M.D. Measurements Intervals [place] Rate: 85 P: 0 NE: 0 QRS: 36 QRSD: 82 T: 106 QT: 292 QTc: 347 Interpretive Statements SUPRAVENTRICULAR RHYTHM LOW QRS VOLTAGE IN PRECORDIAL LEADS [QRS DEFLECTION < 1.0 mV IN CHEST LEADS] NONSPECIFIC T-WAVE ABNORMALITY Compared to ECG 04/23/2023 11:52:17 Supraventricular rhythm now present Sinus rhythm no longer present Atrial premature complex(es) no longer present T-wave abnormality still present Electronically Signed On 08-17-2023 17:04:12 CDT by Chelle Fuller M.D. [id number] f
--- NOTE | 2023-08-16 15:27 | CTR_ITS ---
PROCEDURE INFORMATION: Exam: CT Head Without Contrast Exam date and time: 08/16/2023 3:43 PM Age: 58 years old Clinical indication: Syncope and collapse TECHNIQUE: Imaging protocol: Computed tomography of the head without contrast. Radiation optimization: All CT scans at this facility use at least one of these dose optimization techniques: automated exposure control; mA and/or kV adjustment per patient size (includes targeted exams where dose is matched to clinical indication); or iterative reconstruction. COMPARISON: No relevant prior studies available. RADIATION DOSE METRICS: Total DLP (mGy-cm): 966.06 FINDINGS: Brain: Normal. No hemorrhage. Unremarkable white matter. No mass effect. Cerebral ventricles: No ventriculomegaly. Paranasal sinuses: Visualized sinuses are unremarkable. No fluid levels. Mastoid air cells: Visualized mastoid air cells are well aerated. Bones/joints: Unremarkable. No acute fracture. Soft tissues: Unremarkable. CT/CT head wo con* [id number] IMPRESSION: No acute intracranial abnormality.
--- NOTE | 2023-08-16 15:27 | CTR_ITS ---
PROCEDURE INFORMATION: Exam: CT Abdomen And Pelvis With Contrast Exam date and time: 08/16/2023 3:49 PM Age: 58 years old Clinical indication: Abdominal pain; Generalized; Additional info: Abd pain TECHNIQUE: Imaging protocol: Computed tomography of the abdomen and pelvis with contrast. Radiation optimization: All CT scans at this facility use at least one of these dose optimization techniques: automated exposure control; mA and/or kV adjustment per patient size (includes targeted exams where dose is matched to clinical indication); or iterative reconstruction. Contrast material: OMNI 350; Contrast volume: 70 ml; Contrast route: INTRAVENOUS (IV); COMPARISON: CT abdomen pelvis w con* [id number] 08/13/2023 5:22 PM RADIATION DOSE METRICS: Total DLP (mGy-cm): 309.32 FINDINGS: Lungs: Lung bases are clear. No pleural effusion. Liver: Normal. No mass. Gallbladder and bile ducts: Normal. No calcified stones. No ductal dilation. Pancreas: Normal. No ductal dilation. Spleen: Normal. No splenomegaly. Adrenal glands: 1.4 cm left adrenal adenoma noted. Kidneys and ureters: Normal. No hydronephrosis. Stomach and bowel: There is moderate distension involving the stomach. There is abnormal thickening and irregularity involving the wall of the distal stomach and pylorus. Appendix: No evidence of appendicitis. Intraperitoneal space: Motion artifact limits evaluation of the upper abdomen. Vasculature: Unremarkable. No abdominal aortic aneurysm. Lymph nodes: Multiple enlarged lymph nodes are noted around the GE junction with the largest measuring 2 cm in diameter. Urinary bladder: Unremarkable as visualized. Reproductive: Unremarkable as visualized. Bones/joints: Unremarkable. No acute fracture. Soft tissues: Unremarkable. CT/CT abdomen pelvis w con* [id number] IMPRESSION: 1. Abnormal thickening of the distal stomach wall with gastric distension. These findings have not changed over the past several months. Diagnostic possibilities include gastric carcinoma versus peptic ulcer disease 2. Stable left adrenal adenoma 3. Stable upper abdominal adenopathy
--- NOTE | 2023-08-16 15:30 | W.ED.SYNCOPE ---
HPI - Syncope General: Chief Complaint: Syncope Stated Complaint: syncope Time Seen by Provider: 08/16/23 15:21 Source: patient Mode of arrival: wheelchair History of Present Illness: 50-year-old female who presents emergency room via wheelchair. 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 She works in [employer] she was with a coworker and passed out she did not fully lose consciousness. She was here 2 days ago with complaints of dark stools. Her hemoglobin at that time was 8 4. She is chronically anemic last fall was as low as 6.4. She is tells me she has an appointment upcoming with Dr. Basilio for endoscopy. complaint: collapsed Onset (ago): minute(s) Prodromal symptoms: lightheaded Witnessed: Yes - by Bystander Context: standing up Associated symptoms: Deny abdominal pain, chest pain, fever(s), headache(s), lightheadedness, nausea, short of breath, vertigo or weakness Treatments prior to arrival: none Review of Systems Const: Denies: fever(s) or chills Card: Denies: chest pain or lightheadedness Resp: Denies: dyspnea GI: Denies: abdominal pain or nausea : Denies: dysuria, urinary frequency or urinary urgency Musc: Denies: neck pain or back pain Skin/Breast: Denies: rash Neuro: Denies: headache(s) or vertigo PFS ED PFSH: Medical History Gastric mass GERMAN (generalized anxiety disorder) Iron deficiency anemia Microcytic anemia GERD (gastroesophageal reflux disease) No pertinent past medical history neghx:thyroid,dvt/pe PCP: Pierre Type 2 diabetes mellitus, without long-term current use of insulin Dyslipidemia Hypertension Surgical History Hx of colonoscopy with polypectomy No pertinent past surgical history Family History Mother Diabetes Stroke Family/Other Diabetes nephew Father Hypertension Denies family history of Colon cancer Ovarian cancer Heart disease Hyperlipidemia Breast cancer Uterine cancer Thyroid disease Social History Smoking and tobacco/nicotine status: never used tobacco/nicotine Alcohol intake: former Substance/Drug Use: never Current occupation: EV[employer] AT [employer] Physical Exam Const: GENERAL APPEARANCE: cooperative, comfortable and lethargic ORIENTATION/CONSCIOUSNESS: Yes awake and Yes lethargic HENMT: COMMON NORMALS: normocephalic, atraumatic and hearing grossly normal bilaterally HEAD & SCALP: normocephalic and atraumatic Resp: COMMON NORMALS: normal respiratory effort, No retractions, No use of accessory muscles and clear to auscultation bilaterally AUSCULTATION: clear to auscultation bilaterally Cardio: COMMON NORMALS: regular rate, regular rhythm and No murmurs present (Cardio) RATE: regular rate RHYTHM: regular rhythm GI: COMMON NORMALS: Soft to palpation and No hepatosplenomegaly present AUSCULTATION: Yes normoactive bowel sounds PALPATION: Yes Soft to palpation, No Tenderness to palpation present (GI), No Guarding due to palpation present (GI) and Yes No hepatosplenomegaly present Extremity: COMMON NORMALS: normal to inspection, capillary refill normal, no clubbing, cyanosis or edema, no calf tenderness and no pedal edema Neuro: SENSORIUM/ORIENTATION: Yes lethargic Skin: COMMON NORMALS: no rashes or lesions noted GENERAL SKIN EXAM: no rashes or lesions noted Course Vital Signs: Vital signs: Vital Signs Temperature 98.6 F 08/16/23 15:20 Pulse Rate 74 08/16/23 16:29 Respiratory Rate 18 08/16/23 16:29 Blood Pressure 118/63 08/16/23 16:29 Pulse Oximetry 100 08/16/23 16:29 Oxygen Delivery Me thod Room Air 08/16/23 15:20 MDM - Syncope Medical Decision Making Patient has had approximately 50% body weight loss in the last 18 months to 2 years. She is not tracking well now is mildly encephalopathic she is mildly hypokalemic as well. Give her potassium rider IV fluids keep her n.p.o. her hemoglobin is actually up some. Will admit her and have surgery consulted for EGD. We admitted under similar circumstances in April of last year that time biopsy did not show anything. Given her significant weight loss I think this needs to be reevaluated especially given the lymphadenopathy noted previously in the abdomen. Discussed with hospitalist also discussed with surgery Dr. Basilio see the patient. Medical Records I reviewed the patient's medical records. Lab Data I reviewed the patient's lab results. 08/16/23 15:27 08/16/23 15:27 Radiology Impressions Abdomen/Pelvis CT 08/16/23 15:27 IMPRESSION: 1. Abnormal thickening of the distal stomach wall with gastric distension. These findings have not changed over the past several months. Diagnostic possibilities include gastric carcinoma versus peptic ulcer disease 2. Stable left adrenal adenoma 3. Stable upper abdominal adenopathy Head CT 08/16/23 15:27 IMPRESSION: No acute intracranial abnormality. Laboratory Results WBC 11.73 10^3/uL (3.29-11.43) H 08/16/23 15: RBC 4.12 10^6/uL (3.85-5.65) 08/16/23 15: Hgb 9.30 g/dL (11.27-16.99) L 08/16/23 15: Hct 32.1 % (36-47) L 08/16/23 15: MCV 77.9 fl (85-98) L 08/16/23 15: MCH 22.6 pg (27-33) L 08/16/23 15: MCHC 29.0 g/dL (30-55) L 08/16/23 15: RDW 16.0 % (12.1-15.1) H 08/16/23 15: Plt Count 539 10^3/cmm (157-399) H 08/16/23 15:27 MPV 8.5 fL (7.4-10.4) 08/16/23 15: Neut % (Auto) 70.8 % 08/16/23 15: Lymph % (Auto) 19.9 % 08/16/23 15:27 [place] % (Auto) 8.0 % 08/16/23 15:27 Eos % (Auto) 0.6 % 08/16/23 15: Baso % (Auto) 0.4 % 08/16/23 15:27 Neut # (Auto) 8.30 10^3/uL (1.8-7.7) H 08/16/23 15:27 Lymph # (Auto) 2.3 10^3/uL (0.8-4.8) 08/16/23 15:27 [place] # (Auto) 0.9 10^3/uL (0.2-0.9) 08/16/23 15:27 Eos # (Auto) 0.1 10^3/uL (0.0-0.8) 08/16/23 15:27 Baso # (Auto) 0.1 10^3/uL (0.0-0.1) 08/16/23 15:27 Nucleated RBC % (auto) 0 % 08/16/23 15: Nucleated RBCs # 0.0 /100WBC 08/16/23 15:27 Sodium 139 mmol/L (136-145) 08/16/23 15:27 Potassium 3.0 mmol/L (3.5-5.1) L 08/16/23 15: Chloride 100 mmol/L (98-107) 08/16/23 15: Carbon Dioxide 22 mmol/L (22-29) 08/16/23 15: Anion Gap 20.0 (5-19) H 08/16/23 15:27 BUN 11 mg/dL (6-20) 08/16/23 15:27 Creatinine 0.7 mg/dL (0.5-0.9) 08/16/23 15:27 GFR Calculation 85.9 mL/min (90-130) L 08/16/23 15:27 Glucose 125 mg/dL (65-115) H 08/16/23 15: Calculated Osmolality 289 mOsm/kg (285-295) 08/16/23 15:27 Lactic Acid 3.0 mmol/L (0.5-2.2) H 08/16/23 15: Calcium 9.3 mg/dL (8.5-10.5) 08/16/23 15: Total Bilirubin 0.4 mg/dL (0.15-1.2) 08/16/23 15:27 AST 12 U/L (0-32) 08/16/23 15:27 ALT 8 U/L (0-33) 08/16/23 15:27 Alkaline Phosphatase 69 U/L (35-105) 08/16/23 15: Creatine Kinase 24 U/L (26-192) L 08/16/23 15:27 Troponin T Baseline < 6 ng/L (0-10) 08/16/23 15:27 Total Protein 6.4 g/dL (6.6-8.7) L 08/16/23 15:27 Albumin 3.9 g/dL (3.5-5.2) 08/16/23 15:27 Globulin 2.5 g/dL (1.3-4.6) 08/16/23 15:27 Lipase 56 U/L (13-60) 08/16/23 15:27 Urine Color Yellow (Yellow) 08/16/23 16:25 Urine Appearance Sl hazy (CLEAR) A 08/16/23 16:25 Urine pH 6 (5-7) 08/16/23 16:25 Ur Specific [place] 1.010 (1.005-1.030) 08/16/23 16:25 Urine Protein 1+ (Negative) H 08/16/23 16:25 Urine Glucose (UA) Norm (Normal) 08/16/23 16:25 Urine Ketones 1+ (Negative) H 08/16/23 16:25 Urine Blood Neg (Negative) 08/16/23 16:25 Urine Nitrate Negative (Negative) 08/16/23 16:25 Urine Bilirubin Neg (Negative) 08/16/23 16:25 Urine Urobilinogen Norm mg/dL (Negative) 08/16/23 16:25 Ur Leukocyte Esterase Trace (Negative) H 08/16/23 16:25 Amorphous Sediment Not Reportable 08/16/23 16:25 Serum Ketones Negative (Negative) 08/16/23 15:27 All radiology interpretation(s) finalized by discharge Discharge Plan Discharge Patient Disposition: Admitted As Inpatient Clinical Impression: Syncope, Gastric mass, Abdominal lymphadenopathy, Iron deficiency anemia, Recent unexplained weight loss, Hypokalemia Condition: Stable Coding Level of Care Code ED Operations Clerk for Walter Baca
[2023-08-16 15:33] LABS: Basophils # 0.1 10^3/uL (0.0-0.1); Basophils % 0.4 %; Eosinophils # 0.1 10^3/uL (0.0-0.8); Eosinophils % 0.6 %; Hematocrit 32.1 % (36-47); Lymphocytes # 2.3 10^3/uL (0.8-4.8); Lymphocytes % 19.9 %; Mean Corpuscular Hemoglobin 22.6 pg (27-33); Mean Corpuscular Volume 77.9 fl (85-98); Mean Platelet Volume 8.5 fL (7.4-10.4); Monocytes # 0.9 10^3/uL (0.2-0.9); Neutrophils % 70.8 %; Nucleated Red Blood Cells % 0 %; Platelet Count 539 10^3/cmm (157-399); Red Blood Count 4.12 10^6/uL (3.85-5.65); White Blood Count 11.73 10^3/uL (3.29-11.43)
[2023-08-16 15:45] VITALS: BP 80/59; PULSE 93; RESP 20; O2SAT 100
[2023-08-16] MEDS: iohexol 350 mg/mL 500 mL Btl (per mL) IV (15:49)
[2023-08-16 15:50] LABS: Ketone (Acetest) Serum Negative (Negative)
[2023-08-16 15:51] LABS: Troponin(5th) Baseline < 6 ng/L (0-10)
[2023-08-16 15:52] LABS: Alanine Aminotransferase 8 U/L (0-33); Albumin Level 3.9 g/dL (3.5-5.2); Alkaline Phosphatase 69 U/L (35-105); Aspartate Amino Transferase 12 U/L (0-32); Blood Urea Nitrogen 11 mg/dL (6-20); Calcium 9.3 mg/dL (8.5-10.5); Carbon Dioxide 22 mmol/L (22-29); Chloride 100 mmol/L (98-107); Creatine Phosphokinase 24 U/L (26-192); Creatinine Clr Calc Pharmacy 61.4743; Globulin 2.5 g/dL (1.3-4.6); Glomerular Filtration Rate 85.9 mL/min (90-130); Glucose 125 mg/dL (65-115); Lipase 56 U/L (13-60); Osmolality Calculated 289 mOsm/kg (285-295); Sodium 139 mmol/L (136-145); Total Bilirubin 0.4 mg/dL (0.15-1.2); Total Protein 6.4 g/dL (6.6-8.7)
[2023-08-16] MEDS: sodium chloride 0.9% 1,000 ML 999 ML IV (16:04)
[2023-08-16 16:29] VITALS: BP 118/63; PULSE 74; RESP 18; O2SAT 100
[2023-08-16 16:49] LABS: Urine Appearance SL Hazy (CLEAR); Urine Color Yellow (Yellow); pH Urine 6 (5-7)
[2023-08-16 16:50] LABS: Add Urine Microscopic? YES; Bilirubin Urine Neg (Negative); Blood Urine Neg (Negative); Glucose Urine UA Norm (Normal); Ketones Urine 1+ (Negative); Leukocyte Esterase Urine Trace (Negative); Nitrate Urine Negative (Negative); Protein Urine 1+ (Negative); Urobilinogen Urine Norm (Negative)
[2023-08-16 17:05] LABS: Add Urine Culture? No; Hyaline Casts Urine 0-4 /lpf; Mucus Urine TRACE /hpf; WBC Urine 0-4 /hpf (0-5)
[2023-08-16 17:18] LABS: Reflex Lactate Order REFLEX LACTIC ORDERD
[2023-08-16] MEDS: pantoprazole 40 mg SDV 80 MG IVP (17:31)
[2023-08-16 17:32] VITALS: BP 116/70; PULSE 71; RESP 22; O2SAT 100
--- NOTE | 2023-08-16 17:42 | P.HP_ITS ---
Providers/Chief Complaint 2 Admitting Physician: Michael Sherwood DO Primary Care Provider: Julio Jay DO Chief Complaint: passed out History of Present Illness Dayana Landin is a 58 year old female with a great to her than 6-month history of abdominal pain abdominal fullness. Patient is an EVS worker at our facility. According to patient nephew and her pig machine supervisor patient has been experiencing lightheadedness difficulty eating for the last few days worse than previous. While waiting to start her shift patient became dizzy and lightheaded and passed out. Patient reports this history of abdominal pain and fullness bloating again for approximately 6 months in April she had a CAT scan that showed an abnormal gastric wall thickening EGD and biopsy was negative for malignancy. She has found to have significant iron deficiency anemia. In the emergency room patient has responded to fluids resuscitation for hypotension. A repeat CAT scan shows similar results from April. There is localized lymphadenopathy as well as a possible liver mass that is concerning for metastasis. Patient and family and friend report that patient's weight loss has been over the last 2 years when she was initially diagnosed with diabetes. However the weight loss is completely unintentional these last 6 months. Review of Systems 2 Const: Denies: fever(s) or chills Eyes: Denies: change in vision ENMT: Denies: throat pain or nasal congestion Card: Denies: chest pain or palpitations Resp: Denies: dyspnea or productive cough GI: Reports: abdominal pain, early satiety, bloating, belching and excessive flatus : Denies: dysuria Musc: Denies: back pain or extremity pain Skin/Breast: Denies: rash or lesions Neuro: Denies: headache(s) Psych: Denies: anxiety or depression Mateusz/Lymph: Denies: easy bruising or easy bleeding Medications/Allergies Home Medications Medication Instructions Recorded Confirmed Last Taken Type ciprofloxacin HCl 500 mg tablet 500 mg PO BID #14 tabs 08/13/23 08/16/23 08/16/23 Rx (Cipro) escitalopram oxalate 20 mg tablet 20 mg PO BEDTIME 08/13/23 08/16/23 08/15/23 History loperamide 2 mg capsule 2 mg PO PRN PRN loose stools 08/13/23 08/16/23 08/12/23 History metronidazole 500 mg tablet 500 mg PO Q8H 7 days #21 tabs 0408/16/23 08/16/23 Rx ondansetron HCl 4 mg tablet 4 mg PO Q8H PRN Nausea And Vomiting 08/13/23 08/16/23 Unknown History pantoprazole 40 mg tablet,delayed 40 mg PO DAILY 08/13/23 08/16/23 08/16/23 History release Allergies Allergy/AdvReac Type Severity Reaction Status Date / Time No Known Allergies Allergy Verified 08/09/23 11:25 PFSH Acute 2 PFSH: Medical History Gastric mass GERMAN (generalized anxiety disorder) Iron deficiency anemia Microcytic anemia GERD (gastroesophageal reflux disease) No pertinent past medical history neghx:thyroid,dvt/pe PCP: Pierre Type 2 diabetes mellitus, without long-term current use of insulin Dyslipidemia Hypertension Surgical History Hx of colonoscopy with polypectomy No pertinent past surgical history Family History Mother Diabetes Stroke Family/Other Diabetes nephew Father Hypertension Denies family history of Colon cancer Ovarian cancer Heart disease Hyperlipidemia Breast cancer Uterine cancer Thyroid disease Social History Smoking and tobacco/nicotine status: never used tobacco/nicotine Alcohol intake: former Substance/Drug Use: never Current occupation: EVS AT [employer] Vitals/I&O/Wt Last Vital Signs Temp 98.6 F 08/16/23 15:20 Pulse 71 08/16/23 17:32 Resp 22 H 08/16/23 17:32 BP 116/70 08/16/23 17:32 Pulse Ox 100 08/16/23 17:32 O2 Del Method Room Air 08/16/23 15:20 Weight last 48 hrs Weight 44.452 kg Physical Exam 2 Narrative: Patient is a petite thin skin folds and extremities due to quick weight loss. Patient appears chronically ill. But no acute distress at time of examination HEENT head: NC/AT, PERRLA/EO CO, mucous membranes are moist and pink without lesions or exudates Neck is supple no JVD carotid bruits or lymphadenopathy Chest rises symmetrically with inspiration no chest wall deformities Heart: Regular rate and rhythm normal S1-S2 without murmurs clicks gallops or rubs Lungs clear to auscultation anteriorly and posteriorly without wheezes rales or rhonchi Abdomen: No palpable mass but there is fullness in the epigastrium she is slightly tender there otherwise normal active bowel sounds no rebound rigidity guarding no hepatosplenomegaly Extremities no clubbing cyanosis or edema she is very thin Skin is warm and dry and she is rather pale. No rashes or lesions noted Psych: Patient is appears quite anxious and she carries a diagnosis of generalized anxiety disorder. Considering hospitalization her mood and affect appear appropriate with these diagnoses Back: Mild kyphosis no CVA tenderness Data 08/16/23 15:27 08/16/23 15:27 Other Labs: Initial troponin less than [address] Abd/Pel: Radiologist's impression: IMPRESSION: 1. Abnormal thickening of the distal stomach wall with gastric distension. These findings have not changed over the past several months. Diagnostic possibilities include gastric carcinoma versus peptic ulcer disease 2. Stable left adrenal adenoma 3. Stable upper abdominal adenopathy EKG 2: My Interpretation: Questionable low voltage P waves identified patient rhythm is regular. There is a PAC. She has low voltage overall. QRS interval is normal no significant ST-T wave changes EKG computer-generated impression: SUPRAVENTRICULAR RHYTHM LOW QRS VOLTAGE IN PRECORDIAL LEADS [QRS DEFLECTION < 1.0 mV IN CHEST LEADS] NONSPECIFIC T-WAVE ABNORMALITY No previous ECG available for comparison A&P Assessment and plan (1) Syncope: Cysts suspect vasovagal syncope due to orthostatic hypotension due to chronic blood loss anemia. Continue hydration. May need IV iron. Workup of gastric mass that is likely causing iron deficiency anemia and orthostatic hypotension and syncope. Qualifiers: Syncope type: vasovagal syncope Qualified Code(s): R55 - Syncope and collapse (2) Black tarry stools: Recommend EGD Dr. Basilio in agreement plan for tomorrow. Her EGD in April was negative for malignancy however high concern given the lymphadenopathy. (3) Hypokalemia: Replace an IV and an extra K rider will follow labs Check magnesium level as well (4) Gastric mass: Unfortunately this mass is concerning. Her H. pylori stool in the end of last year was negative. It does appear that she is being treated for H. pylori at this time. I could not find a positive result in her labs. I will continue this treatment. EGD tomorrow with hopeful multiple biopsies. If biopsy negative patient will probably need this mass removed and will refer to [place]. (5) Recent unexplained weight loss: As above Nutrition consult for weight gain. (6) Iron deficiency anemia: May need IV iron Qualifiers: Iron deficiency anemia type: chronic blood loss Qualified Code(s): D 50.0 - Iron deficiency anemia secondary to blood loss (chronic) (7) Abdominal lymphadenopathy: Questionable whether due to gastric ulcer versus cancer (8) GERAMN (generalized anxiety disorder): Continue home dose Lexapro Attestations 2 Medical Necessity Statement*: Patient will likely require 2 midnight stay for EGD with biopsy results and stabilization of her blood pressure. Coding Level of Care Code Acute Code for Chg Fwd Diagnoses Vasovagal syncope R55 Syncope type: vasovagal syncope Black tarry stools K92.1 Hypokalemia E87.6 Gastric mass K31.89 Recent unexplained weight loss R63.4 Iron deficiency anemia due to chronic blood loss D50.0 Iron deficiency anemia type: chronic blood loss Abdominal lymphadenopathy R59.0 GERMAN (generalized anxiety disorder) F41.1
[2023-08-16 17:51] LABS: Troponin 5 2HR 7.61 ng/L (0-10); Troponin 5 2HR Delta 1.61001 ABS# (0-10)
--- NOTE | 2023-08-16 18:17 | ECG_ITS ---
[facility] Test Date: 2023-08-16 Pat Name: Dayana Landin Department: Room: 267 Gender: Female Smoke Eater: : 1965 Requested By: Khalif Stoll Order Number: [id number] Lauri MD: Chelle Fuller M.D. Measurements Intervals [place] Rate: 68 P: 70 OR: 124 QRS: -17 QRSD: 90 T: 57 QT: 555 QTc: 591 Interpretive Statements SINUS RHYTHM PROLONGED QT INTERVAL CRITICAL TEST RESULT Compared to ECG 08/16/2023 15:25:39 Prolonged QT interval now present Supraventricular rhythm no longer present T-wave abnormality no longer present Electronically Signed On 08-17-2023 17:32:40 CDT by Chelle Fuller M.D. [id number]
[2023-08-16 18:59] LABS: Magnesium 1.6 mg/dL (1.7-2.3)
[2023-08-16 19:36] LABS: H. Pylori IgG Antibody Negative (Negative)
[2023-08-16 19:43] VITALS: BMI 19.8
[2023-08-16 19:53] VITALS: BP 112/64; PULSE 64; RESP 18; TEMP 36.7; O2SAT 100
[2023-08-16] MEDS: pantoprazole 40 MG in sodium chloride 0.9% (plus) 100 ML 20 MG IV (20:02)
[2023-08-16] MEDS: D5-NS 0.45% + KCL 20 mEq 20 MEQ/1,000 ML BAG 100 MEQ IV (20:08)
[2023-08-16] MEDS: lidocaine 1% 5 ML in potassium chloride premix 100 ML 26.25 ML IV (20:10)
--- NOTE | 2023-08-16 21:27 | ECG_ITS ---
[facility] Test Date: 2023-08-16 Pat Name: Dayana Landin Department: Room: 267 Gender: Female Gyn Physician: : 1965 Requested By: Khalif Stoll Order Number: [id number] Lauri MD: Chelle Fuller M.D. Measurements Intervals [place] Rate: 67 P: 40 OK: 99 QRS: -7 QRSD: 74 T: 48 QT: 388 QTc: 412 Interpretive Statements SINUS RHYTHM WITH SHORT OK INTERVAL Prolonged QT interval of 500 ms Compared to ECG 08/16/2023 18:17:27 Short OK interval now present Electronically Signed On 08-17-2023 17:33:44 CDT by Chelle Fuller M.D. [id number]
[2023-08-16] MEDS: escitalopram 10 mg Tablet 20 MG PO (21:43)
[2023-08-16] MEDS: hyDROXYzine 25 mg Capsule PO (21:43)
[2023-08-16] MEDS: ciprofloxacin 500 mg Tablet PO (21:43)
[2023-08-16] MEDS: metroNIDAZOLE 500 MG Tablet PO (21:43)
[2023-08-16 21:56] LABS: Troponin 5 6HR 8.93 ng/L (0-10); Troponin 5 6HR Delta 2.93001 ng/L (0-12)
[2023-08-16 23:57] VITALS: BP 116/68; PULSE 76; RESP 18; TEMP 36.7; O2SAT 100
[2023-08-17] VITALS (14 sets, daily range): BP systolic 80–116; BP diastolic 52–69; PULSE 55–71; RESP 16–18; TEMP 36.1–36.8; O2SAT 98–100
[2023-08-17] MEDS: pantoprazole 40 MG in sodium chloride 0.9% (plus) 100 ML 20 MG IV ×4 (00:53→19:17)
[2023-08-17] MEDS: metroNIDAZOLE 500 MG Tablet PO ×2 (05:07→21:02)
[2023-08-17 05:13] LABS: Anion Gap 12.1 (5-19); Blood Urea Nitrogen 7 mg/dL (6-20); Calcium 7.8 mg/dL (8.5-10.5); Carbon Dioxide 19 mmol/L (22-29); Chloride 109 mmol/L (98-107); Creatinine Clr Calc Pharmacy 65.4336; Glomerular Filtration Rate 85.9 mL/min (90-130); Glucose 134 mg/dL (65-115); Osmolality Calculated 284 mOsm/kg (285-295); Potassium 3.1 mmol/L (3.5-5.1); Sodium 137 mmol/L (136-145)
[2023-08-17] MEDS: D5-NS 0.45% + KCL 20 mEq 20 MEQ/1,000 ML BAG 100 MEQ IV ×2 (06:01→19:17)
--- NOTE | 2023-08-17 08:13 | P.CONIM_ITS ---
Providers/Reason For Consult 2 Consulting Physician/Specialty*: Dr. Konstantin Basilio DO/General surgery Reason for Consult*: Abdominal pain nausea vomiting and syncope Attending Physician: Michael Sherwood DO Primary Care Provider: Julio Jay DO History of Present Illness History of Present Illness Dayana Landin is a 58 year old female, who works in our [employer] department and underwent EGD in April 2023 and was found to have ulceration with masslike changes but biopsies showed only ulceration and regeneration without malignancy or H. pylori-she did not follow-up in my office, has had a 100 pound weight loss unintentionally in the last year and recently has had suprapubic abdominal pain nausea vomiting and melena. Her pain is dull and constant. Palpation makes pain worse. Nothing makes pain better. The pain does not radiate. She denies any hematemesis and/or hematochezia. CT of the abdomen pelvis shows lymphadenopathy, possible hepatic mass and thickening of the antrum of the stomach concerning for peptic ulcer disease versus malignancy. She reports she did have a syncopal episode yesterday. She is admitted to the hospitalist. Review of Systems 2 General: Reports: 10 or more systems reviewed and unremarkable except in HPI and below Medications/Allergies Home Medications Medication Instructions Recorded Confirmed Last Taken Type ciprofloxacin HCl 500 mg tablet 500 mg PO BID #14 tabs 08/13/23 08/16/23 08/16/23 Rx (Cipro) escitalopram oxalate 20 mg tablet 20 mg PO BEDTIME 08/13/23 08/16/23 08/15/23 History loperamide 2 mg capsule 2 mg PO PRN PRN loose stools 08/13/23 08/16/23 08/12/23 History metronidazole 500 mg tablet 500 mg PO Q8H 7 days #21 tabs 08/13/23 08/16/23 08/16/23 Rx ondansetron HCl 4 mg tablet 4 mg PO Q8H PRN Nausea And Vomiting 08/13/23 08/16/23 Unknown History pantoprazole 40 mg tablet,delayed 40 mg PO DAILY 08/13/23 08/16/23 08/16/23 History release Allergies Allergy/AdvReac Type Severity Reaction Status Date / Time No Known Allergies Allergy Verified 08/09/23 11:25 Current Medications Generic Name Dose Route Start Last Admin Trade Name Freq PRN Reason Stop Dose Admin Ciprofloxacin HCl 500 mg 08/16/23 18:31 08/16/23 21:43 Ciprofloxacin 500 Mg Tablet PO 500 mg BID JOSSE Administration Protocol Escitalopram Oxalate 20 mg 08/16/23 21:00 08/16/23 21:43 Escitalopram 10 Mg Tablet PO 20 mg BEDTIME JOSSE Administration Pantoprazole Sodium 40 mg/ 100 mls @ 20 mls/hr 08/16/23 17:45 08/17/23 05:59 Sodium Chloride IV 8 mg/hr .Q5H JOSSE 20 mls/hr Administration 8 MG/HR Potassium Chloride/Dextrose/Sod Cl 20 meq in 1,000 mls @ 100 mls/hr 08/16/23 18:31 08/17/23 06:01 D5-Ns 0.45% + Kcl 20 Meq IV 100 mls/hr .Q10H JOSSE Administration Metronidazole 500 mg 08/16/23 18:31 08/17/23 05:07 Metronidazole 500 Mg Tablet PO 500 mg Q8H JOSSE Administration PFSH Acute 2 PFSH: Medical History Gastric mass GERMAN (generalized anxiety disorder) Iron deficiency anemia Microcytic anemia GERD (gastroesophageal reflux disease) No pertinent past medical history neghx:thyroid,dvt/pe PCP: Pierre Type 2 diabetes mellitus, without long-term current use of insulin Dyslipidemia Hypertension Surgical History Hx of colonoscopy with polypectomy No pertinent past surgical history Family History Mother Diabetes Stroke Family/Other Diabetes nephew Father Hypertension Denies family history of Colon cancer Ovarian cancer Heart disease Hyperlipidemia Breast cancer Uterine cancer Thyroid disease Social History Smoking and tobacco/nicotine status: never used tobacco/nicotine Alcohol intake: former Substance/Drug Use: never Current occupation: EVS AT [employer] Vitals/I&O/Wt Last Vital Signs Temp 98.2 F 08/17/23 07:27 Pulse 61 08/17/23 07:27 Resp 17 08/17/23 07:27 BP 80/52 08/17/23 07:27 Pulse Ox 99 08/17/23 07:27 O2 Del Method Room Air 08/17/23 07:27 08/16/23 08/17/23 08/17/23 22:59 06:59 14:59 Intake Total 1120 / 1120 1290.333 / 2410.333 Balance 1120 / 1120 1290.333 / 2410.333 Weight last 48 hrs Weight 104 lb 5 oz Weight 98 lb Weight 98 lb Physical Exam 2 Narrative: General : Patient is well developed , no acute distress, oriented x3 Head : Normal cephalic, a-traumatic. Ears : Pinnae and external canal are normal. Hearing is normal. Eyes : PERRLA, Sclera and injection are normal. No conjunctival discharge. Nose : Mucous membranes are without erythema. Throat : buccal mucosa is normal, gums are without significant recession or hypertrophy. Lungs : Equal chest rise bilaterally, no use of accessory muscles, trachea is midline. Cor : Rate and rhythm are normal. Abdomen : Soft, ND, mild suprapubic tenderness, no g/r/m Extremities : No edema, no cyanosis or clubbing, dorsalis pedis pulses are present bilaterally, non-tender to palpation of calves. Upper extremities are normal bilaterally. Back : non-tender to palpation, no CVA tenderness. Neuro : CN II - XII intact, Upper and lower extremities have equal and full strength Data 08/16/23 15:27 08/17/23 04:40 A&P Assessment and plan (1) Abdominal pain: (2) Abnormal weight loss: (3) Black tarry stools: (4) History of peptic ulcer disease: Plan Protonix twice daily Sucralfate She likely needs an EGD. I am off today and over the weekend. There is another covering surgeon. He may want to do an EGD today. Further recommendations per said surgeon Medical management per hospitalist Coding Level of Care Code 59403 Diagnoses Epigastric pain R10.9 Abnormal weight loss R63.4 Black tarry stools K92.1 History of peptic ulcer disease Z87.11
[2023-08-17] MEDS: ciprofloxacin 500 mg Tablet PO ×2 (08:19→17:18)
--- NOTE | 2023-08-17 08:56 | PC.CHAP ---
Pastoral Care Encounter/Spiritual Assessment Type of Contact [] Declined cemetery warden visit [] Patient/Family/Request visit [] Outpatient visit [] Follow-up visit [] Physician referral [] Code/Alert [x] Routine visit [] Staff referral [] Actively dying [] Patient sleeping [] Family support [] [] Out of room [] Palliative care [] [] Receiving care in room [] Pre-surgical visit [] Trauma [] Long length of stay [] ICU visit [] Other: Relational/Emotional Strength [x] Patient feels connected with others/family/visitors/staff [] Distress [] Loneliness/isolation [] Abandonment Spirituality of Patient [x] Person of Shani [] Attends Protestant of their Shani [x] Believes in Prayer [] Reads Bible or Tenriism materials [] There are Spiritual issues to be addressed Moving Picture Operator Interventions [x] Prayer [] Active listening [] Non-anxious presence [x] Spiritual/emotional support [] Crisis/trauma care [] Spiritual counseling [] Bereavement support [] Provided bereavement packet [] Provided Bible/devotional materials [] Provided toy/stuffed animal, coloring book to patient or family member [] Provided Communion [] Anointing/[place] [] Salvation [x] Completed spiritual assessment [] Other: Impact on Illness or Injury [] Angry [] Fearful [] Anxious [] Often cries [] Exhaustion [] Unable to work [] Unable to attend scientologist [] Unable to walk/stand [] Unable to read [] Unable to drive [] Unable to eat/drink [] Unable to sleep [] Unable to be with family [] Patient intubated [] Other: Summary Time spent with patient 5 min
[2023-08-17] MEDS: sucralfate 1 gm/10 mL Oral Liq UDC PO ×3 (10:53→21:02)
--- NOTE | 2023-08-17 13:54 | PM.PN ---
Subjective Subjective: No change in condition. Awaiting EGD. Vitals/I&O/Wt Last Vital Signs Temp 98.0 F 08/17/23 11:28 Pulse 60 08/17/23 11:28 Resp 16 08/17/23 11:28 BP 83/54 08/17/23 11:28 Pulse Ox 100 08/17/23 11:28 O2 Del Method Room Air 08/17/23 11:28 08/16/23 08/17/23 08/17/23 22:59 06:59 14:59 Intake Total 1120 / 1120 1290.333 / 2410.333 95.667 / 95.667 Balance 1120 / 1120 1290.333 / 2410.333 95.667 / 95.667 Weight last 48 hrs Weight 47.315 kg Weight 44.452 kg Weight 44.452 kg Physical Exam Narrative: Patient is a petite thin with skin folds noted in extremities due to quick weight loss Patient appears chronically ill. But no acute distress at time of examination Heart: Regular rate and rhythm normal S1-S2 without murmurs clicks gallops or rubs Lungs clear to auscultation anteriorly and posteriorly without wheezes rales or rhonchi Abdomen: No palpable mass but there is fullness in the epigastrium she is slightly tender there otherwise normal active bowel sounds no rebound rigidity guarding no hepatosplenomegaly Extremities no clubbing cyanosis or edema she is very thin Skin is warm and dry and she is rather pale. No rashes or lesions noted Data 08/16/23 15:27 08/17/23 04:40 A&P Assessment and plan (1) Syncope: suspect vasovagal syncope due to orthostatic hypotension due to chronic blood loss anemia. Continue hydration. Will give IV iron Underlying culprit is gastric mass which is likely gastric cancer causing iron deficiency anemia orthostatic hypotension and syncope. . Qualifiers: Syncope type: vasovagal syncope Qualified Code(s): R55 - Syncope and collapse (2) Black tarry stools: Recommend EGD however high concern given the lymphadenopathy. I spoke with Dr. Basilio today since he had done the EGD [place] previously and he is aware of patient. He states that in his opinion the stomach mass is cancer. He says either way the patient will require a liver biopsy to determine the best course of treatment. We do not do liver biopsies here at this hospital. (3) Hypokalemia: Replace an IV and an extra K rider will follow labs Check magnesium level as well (4) Gastric mass: Unfortunately this mass is likely gastric cancer. As above I spoke with Dr. Basilio today. He states by his visualization during the EGD it is 99% likely to be gastric cancer. Now she has a liver mass concerning for metastasis. She also has lymphadenopathy intra peritoneal. EGD is planned for today with multiple biopsies. Even if biopsy negative patient will need further workup with liver biopsy which cannot be done at our hospital. (5) Recent unexplained weight loss: As above Nutrition consult for weight gain. (6) Iron deficiency anemia: Will give IV iron Qualifiers: Iron deficiency anemia type: chronic blood loss Qualified Code(s): D50.0 - Iron deficiency anemia secondary to blood loss (chronic) (7) Abdominal lymphadenopathy: Most likely due to gastric cancer (8) GERMAN (generalized anxiety disorder): Continue home dose Lexapro Plan I discussed with patient the likelihood that this is gastric cancer and patient may well need partial gastrectomy. Her response was I do not want to lose body parts . When I expressed that she would likely need to go to another hospital she was in [place]. However I thought she found some understanding and was going to reach out to her nephew who she lives with. A few moments later the nurse said the patient wanted to go home and would just meet with Dr. Basilio next Sunday. She pulled out her IVs. The nurse and I returned to the room when I sat down with the patient. Her boss from [facility] was with her. I was able to reiterate what I had said and then included what Dr. Basilio and I discussed via phone. While she is obviously devastated by the news of gastric cancer and not wanting to have surgery she was [place] this time and showed better understanding and better acceptance. I think it help to have her friend/boss there. She is willing to stay for EGD. Given the patient's IQ and most likely low socio-economic status I doubt that patient would be able to transport herself to a tertiary care center. It is very likely that we will need to transfer to hospital at in [place] for the liver biopsy and treatment recommendations. If she needs radiation or chemotherapy that could very well be done back here in [place]. Attestations Medical Necessity Statement*: Patient will likely require 2 midnight stay for EGD with biopsy results and stabilization of her blood pressure. Coding Level of Care Code Acute Code for Chg Fwd Diagnoses Vasovagal syncope R55 Syncope type: vasovagal syncope Black tarry stools K92.1 Hypokalemia E87.6 Gastric mass K31.89 Recent unexplained weight loss R63.4 Iron deficiency anemia due to chronic blood loss D50.0 Iron deficiency anemia type: chronic blood loss Abdominal lymphadenopathy R59.0 GERMAN (generalized anxiety disorder) F41.1
[2023-08-17] MEDS: iron sucrose 200 MG in sodium chloride 0.9% (100 ml) 100 ML 220 MG IV (14:37)
--- NOTE | 2023-08-17 15:23 | PC.NURSE ---
Pt to GI lab at this time for EGD
--- NOTE | 2023-08-17 15:40 | P.ANESASSM_ITS ---
Pre-Anesthetic Assessment Height/Weight: Height 1.5 m Weight 47.315 kg Temp Pulse Resp BP Pulse Ox O2 Del Method 97.3 F L 63 16 116/62 100 Room Air 08/17/23 15:27 08/17/23 15:27 08/17/23 15:27 08/17/23 15:27 08/17/23 15:27 08/17/23 15:27 Operation Date: 08/17/23 15:30 Proposed Procedures p EGD(Not Applicable) - Anthony Altamirano MD Last intake: Intake Last Liquid Date 08/16/23 Last Liquid Time 16:00 Last Solid Date 08/16/23 Last Solid Time 08:00 Social No alcohol and No tobacco Airway Submandibular: within normal limits Cervical ROM: Other (short neck with limited CROM) Mallampati: Class II Pulmonary Exertional Dyspnea and Sleep Apnea CV/HEM Hypertension None reported Hepatic None reported GI Gastroesophageal Reflux Disease and Peptic Ulcer Disease Colon CA Metabolic Diabetes Mellitus and Hyperlipidemia Anesthetic Plan ASA status: 3E Anesthesia: MAC Medications/Allergies Home Medications Medication Instructions Recorded Confirmed Last Taken Type ciprofloxacin HCl 500 mg tablet 500 mg PO BID #14 tabs 08/13/23 08/16/23 08/16/23 Rx (Cipro) escitalopram oxalate 20 mg tablet 20 mg PO BEDTIME 08/13/23 08/16/23 08/15/23 History loperamide 2 mg capsule 2 mg PO PRN PRN loose stools 08/13/23 08/16/23 08/12/23 History metronidazole 500 mg tablet 500 mg PO Q8H 7 days #21 tabs 08/13/23 08/16/23 08/16/23 Rx ondansetron HCl 4 mg tablet 4 mg PO Q8H PRN Nausea And Vomiting 08/13/23 08/16/23 Unknown History pantoprazole 40 mg tablet,delayed 40 mg PO DAILY 08/13/23 08/16/23 08/16/23 History release Allergies Allergy/AdvReac Type Severity Reaction Status Date / Time No Known Allergies Allergy Verified 08/09/23 11:25 Current Medications Generic Name Dose Route Start Last Admin Trade Name Freq PRN Reason Stop Dose Admin Ciprofloxacin HCl 500 mg 08/16/23 18:31 08/17/23 08:19 Ciprofloxacin 500 Mg Tablet PO 500 mg BID JOSSE Administration Protocol Escitalopram Oxalate 20 mg 08/16/23 21:00 08/16/23 21:43 Escitalopram 10 Mg Tablet PO 20 mg BEDTIME JOSSE Administration Pantoprazole Sodium 40 mg/ 100 mls @ 20 mls/hr 08/16/23 17:45 08/17/23 10:46 Sodium Chloride IV 8 mg/hr .Q5H JOSSE 20 mls/hr Administration 8 MG/HR Potassium Chloride/Dextrose/Sod Cl 20 meq in 1,000 mls @ 100 mls/hr 08/16/23 18:31 08/17/23 06:01 D5-Ns 0.45% + Kcl 20 Meq IV 100 mls/hr .Q10H JOSSE Administration Iron Sucrose 200 mg/ Sodium 110 mls @ 220 mls/hr 08/17/23 14:15 08/17/23 15:10 Chloride IV Infused Q24H JOSSE Infusion Metronidazole 500 mg 08/16/23 18:31 08/17/23 14:40 Metronidazole 500 Mg Tablet PO Not Given Q8H JOSSE Sucralfate 1 gm 08/17/23 11:00 08/17/23 10:53 Sucralfate 1 Gm/10 Ml Oral Liq Udc PO 1 gm AC&BEDTIME JOSSE Administration PFSH Anesthesia Medical History Gastric mass GERMAN (generalized anxiety disorder) Iron deficiency anemia Microcytic anemia GERD (gastroesophageal reflux disease) No pertinent past medical history neghx:thyroid,dvt/pe PCP: Pierre Type 2 diabetes mellitus, without long-term current use of insulin Dyslipidemia Hypertension Surgical History Hx of colonoscopy with polypectomy No pertinent past surgical history Family History Mother Diabetes Stroke Family/Other Diabetes nephew Father Hypertension Denies family history of Colon cancer Ovarian cancer Heart disease Hyperlipidemia Breast cancer Uterine cancer Thyroid disease Social History Smoking and tobacco/nicotine status: never used tobacco/nicotine Alcohol intake: former Substance/Drug Use: never Current occupation: EVS AT [employer] Data Anesthesia 08/16/23 15:27 08/17/23 04:40 Short CBC 08/16/23 Range/Units 15:27 WBC 11.73 H (3.29-11.43) 10^3/uL Hgb 9.30 L (11.27-16.99) g/dL Hct 32.1 L (36-47) % MCV 77.9 L (85-98) fl Plt Count 539 H (157-399) 10^3/cmm Neut % (Auto) 70.8 % Neut # (Auto) 8.30 H (1.8-7.7) 10^3/uL BMP 08/16/23 08/17/23 15:27 04:40 Sodium 139 137 Potassium 3.0 L 3.1 L Chloride 100 109 H Carbon Dioxide 22 19 L BUN 11 7 Creatinine 0.7 0.7 Glucose 125 H 134 H Calcium 9.3 7.8 L Cardiac Enzymes 08/16/23 08/16/23 08/16/23 Range/Units 15:27 17:24 21:26 Creatine Kinase 24 L (26-192) U/L Troponin T Baseline < 6 (0-10) ng/L Troponin T 120 Minute 7.61 (0-10) ng/L Delta Troponin T 1.77801 (0-10) ABS# Troponin T Hi Sens 6Hr 8.93 (0-10) ng/L Troponin T Hi Sens 6Hr Delta 2.10744 (0-12) ng/L Liver Function 08/16/23 Range/Units 15:27 Total Bilirubin 0.4 (0.15-1.2) mg/dL AST 12 (0-32) U/L ALT 8 (0-33) U/L Alkaline Phosphatase 69 (35-105) U/L Albumin 3.9 (3.5-5.2) g/dL Urine 08/16/23 Range/Units 16:25 Urine Color Yellow (Yellow) Urine Appearance Sl hazy A (CLEAR) Urine pH 6 (5-7) Ur Specific [place] 1.010 (1.005-1.030) Urine Protein 1+ H (Negative) Urine Glucose (UA) Norm (Normal) Urine Ketones 1+ H (Negative) Urine Nitrate Negative (Negative) Urine Bilirubin Neg (Negative) Ur Leukocyte Esterase Trace H (Negative) Urine RBC None (0-2) /hpf Urine WBC 0-4 H (0-5) /hpf Cardiac Studies: 2 Sestamibi Stress Test (Cardiology) 01/07
[2023-08-17] MEDS: escitalopram 10 mg Tablet 20 MG PO (21:02)
[2023-08-18] VITALS (8 sets, daily range): BP systolic 99–120; BP diastolic 55–67; PULSE 57–67; RESP 16–18; TEMP 36.4–36.9; O2SAT 97–100
[2023-08-18] MEDS: pantoprazole 40 MG in sodium chloride 0.9% (plus) 100 ML 20 MG IV ×3 (00:11→10:58)
[2023-08-18] MEDS: metroNIDAZOLE 500 MG Tablet PO (04:56)
[2023-08-18] MEDS: D5-NS 0.45% + KCL 20 mEq 20 MEQ/1,000 ML BAG 100 MEQ IV (04:56)
[2023-08-18 05:39] LABS: Anion Gap 10.5 (5-19); Blood Urea Nitrogen 3 mg/dL (6-20); Calcium 7.9 mg/dL (8.5-10.5); Carbon Dioxide 22 mmol/L (22-29); Chloride 115 mmol/L (98-107); Creatinine Clr Calc Pharmacy 74.1461; Glomerular Filtration Rate 85.9 mL/min (90-130); Glucose 107 mg/dL (65-115); Osmolality Calculated 295 mOsm/kg (285-295); Potassium 3.5 mmol/L (3.5-5.1); Sodium 144 mmol/L (136-145)
[2023-08-18] MEDS: sucralfate 1 gm/10 mL Oral Liq UDC PO (06:21)
[2023-08-18] MEDS: ciprofloxacin 500 mg Tablet PO (09:05)
--- NOTE | 2023-08-18 10:01 | PM.PN ---
Subjective Subjective: No acute events overnight. Tolerated CLD and soft solids well. Patient provided additional history of heavy use of liquid naproxen for pain over the prior weeks. Vitals/I&O/Wt Last Vital Signs Temp 97.5 F L 08/18/23 03:57 Pulse 59 L 08/18/23 07:58 Resp 17 08/18/23 07:58 BP 116/66 08/18/23 07:58 Pulse Ox 100 08/18/23 07:58 O2 Del Method Room Air 08/18/23 07:58 08/17/23 08/18/23 08/18/23 22:59 06:59 14:59 Intake Total 1630 / 3076.318 4037 / 3123.667 340 / 340 Output Total 0 / 0 Balance 1630 / 9371.987 9470 / 3123.667 340 / 340 Weight last 48 hrs Weight 118 lb 3.2 oz Weight 104 lb 5 oz Weight 98 lb Weight 98 lb Physical Exam Narrative: Patient is a petite thin with skin folds noted in extremities due to quick weight loss Patient appears chronically ill. But no acute distress at time of examination Heart: Regular rate and rhythm normal S1-S2 without murmurs clicks gallops or rubs Lungs clear to auscultation anteriorly and posteriorly without wheezes rales or rhonchi Abdomen: No palpable mass but there is fullness in the epigastrium she is slightly tender there otherwise normal active bowel sounds no rebound rigidity guarding no hepatosplenomegaly Extremities no clubbing cyanosis or edema she is very thin Skin is warm and dry and she is rather pale. No rashes or lesions noted Data 08/16/23 15:27 08/18/23 04:47 A&P Assessment and plan (1) Gastric mass: Gastric mass with ulceration highly concerning for gastric cancer with likely exacerbation from recent heavy NSAID use. Also with liver mass potentially concerning for metastasis, with reactive inflammatory vs metastatic intraperitoneal lymphadenopathy. EGD biopsies pending Even if biopsies negative, patient will need further workup with liver biopsy which cannot be done at our hospital and patient likely to require transfer. Attestations Medical Necessity Statement*: Requires further hospitalization for management of abdominal pain and GI bleed in setting of ulcerated gastric mass concerning for malignancy. Coding Level of Care Code Acute Code for [facility] Fwd Diagnoses Gastric mass K31.89
[2023-08-18] MEDS: magnesium sulfate premix 2 GM/50 ML PIGGYBACK IV (10:12)
[2023-08-18] MEDS: iron sucrose 200 MG in sodium chloride 0.9% (100 ml) 100 ML 220 MG IV (15:04)
--- NOTE | 2023-08-18 15:21 | P.PN_ITS ---
Subjective 2 Subjective: Patient is feeling better today. She is able to sit up and even ambulate without dizziness or lightheadedness. She has a good appetite and eating her food. Vitals/I&O/Wt Last Vital Signs Temp 97.6 F 08/18/23 11:38 Pulse 59 L 08/18/23 11:38 Resp 17 08/18/23 11:38 BP 109/67 08/18/23 11:38 Pulse Ox 100 08/18/23 11:38 O2 Del Method Room Air 08/18/23 11:38 08/18/23 08/18/23 08/18/23 06:59 14:59 22:59 Intake Total 1398 / 3123.667 1630 / 1630 Balance 1398 / 3123.667 1630 / 1630 Weight last 48 hrs Weight 53.615 kg Weight 47.315 kg Weight 44.452 kg Physical Exam 2 Narrative: Patient is a petite, thin, with skin folds noted in extremities due to quick weight loss Patient appears chronically ill. But no acute distress at time of examination Heart: Regular rate and rhythm normal S1-S2 without murmurs clicks gallops or rubs Lungs clear to auscultation anteriorly and posteriorly without wheezes rales or rhonchi Abdomen: No palpable mass but there is fullness in the epigastrium she is slightly tender there otherwise normal active bowel sounds no rebound rigidity guarding no hepatosplenomegaly Extremities no clubbing cyanosis or edema she is very thin Skin is warm and dry and she is rather pale. No rashes or lesions noted Data 08/16/23 15:27 08/18/23 04:47 A&P Assessment and plan (1) Syncope: suspect vasovagal syncope due to orthostatic hypotension due to chronic blood loss anemia. Responded to hydration. This was stopped yesterday. Receiving IV iron. Underlying culprit is gastric mass which is likely gastric cancer causing iron deficiency anemia orthostatic hypotension and syncope. . Qualifiers: Syncope type: vasovagal syncope Qualified Code(s): R55 - Syncope and collapse (2) Black tarry stools: Due to gastric cancer and recent heavy NSAID use (3) Hypokalemia: Replaced (4) Gastric mass: As per Dr. Major's notes from today. Patient most likely has a gastric cancer that may have been exacerbated by heavy recent NSAID use. Patient also has a liver mass mass potentially concerning for metastasis with reactive inflammatory versus metastatic intraperitoneal lymphadenopathy. Even if gastric biopsies are negative patient will need further workup with liver biopsy which cannot be done at our hospital. (5) Recent unexplained weight loss: Likely secondary to cancer. (6) Iron deficiency anemia: Will give IV iron Qualifiers: Iron deficiency anemia type: chronic blood loss Qualified Code(s): D 50.0 - Iron deficiency anemia secondary to blood loss (chronic) (7) Abdominal lymphadenopathy: Most likely due to gastric cancer (8) GERMAN (generalized anxiety disorder): Continue home dose Lexapro Plan I have major concerns about patient's understanding of disease and intensity of treatment required. While she is calmer today and more accepting of the cancer diagnosis she lives with her nephew who cannot drive. I have been informed that patient's living condition is very poor. Per report by friend there is evidence of hoarding, insect infestation and animal waste deposits. I have contacted Gemma from our risk service who recommends close follow-up with between patient's primary care and surgeon. I will contact our hospice case manager to assist with follow-up. I would recommend a neuropsych eval for capacity of decision making and overall competency. She does not have support to provide 24-hour care. There may need to be consideration for guardian not only for her but also her nephew. She will be off work until medically stable and arrangements made for future care. Attestations 2 Medical Necessity Statement*: Requires further hospitalization for management of abdominal pain and GI bleed in setting of ulcerated gastric mass concerning for malignancy. Coding Level of Care Code Acute Code for [facility] Fwd Diagnoses Vasovagal syncope R55 Syncope type: vasovagal syncope Black tarry stools K92.1 Hypokalemia E87.6 Gastric mass K31.89 Recent unexplained weight loss R63.4 Iron deficiency anemia due to chronic blood loss D50.0 Iron deficiency anemia type: chronic blood loss Abdominal lymphadenopathy R59.0 GERMAN (generalized anxiety disorder) F41.1
[2023-08-18] MEDS: pantoprazole DR 40 mg Tablet PO (20:59)
[2023-08-18] MEDS: escitalopram 10 mg Tablet 20 MG PO (20:59)
[2023-08-19] VITALS (7 sets, daily range): BP systolic 105–131; BP diastolic 61–77; PULSE 60–75; RESP 15–16; TEMP 36.6–37; O2SAT 96–100
[2023-08-19 03:17] LABS: Anion Gap 10.1 (5-19); Blood Urea Nitrogen 2 mg/dL (6-20); Carbon Dioxide 23 mmol/L (22-29); Chloride 114 mmol/L (98-107); Creatinine Clr Calc Pharmacy 74.1461; Glomerular Filtration Rate 85.9 mL/min (90-130); Glucose 84 mg/dL (65-115); Osmolality Calculated 293 mOsm/kg (285-295); Potassium 3.1 mmol/L (3.5-5.1); Sodium 144 mmol/L (136-145)
[2023-08-19 03:25] LABS: Magnesium 1.9 mg/dL (1.7-2.3)
[2023-08-19] MEDS: potassium chloride ER 20 mEq Tablet 40 MEQ PO (05:24)
[2023-08-19] MEDS: pantoprazole 40 mg SDV IVP (05:24)
--- NOTE | 2023-08-19 10:13 | P.PN_ITS ---
Subjective 2 Subjective: Tolerated diet yesterday, +BM. Abdominal pain improving. Vitals/I&O/Wt Last Vital Signs Temp 97.9 F 08/19/23 07:39 Pulse 60 08/19/23 07:39 Resp 16 08/19/23 07:39 BP 123/77 08/19/23 07:39 Pulse Ox 100 08/19/23 07:39 O2 Del Method Room Air 08/19/23 07:39 08/18/23 08/19/23 08/19/23 22:59 06:59 14:59 Intake Total 210 / 1840 240 / 240 Output Total 250 / 250 Balance -40 / 1590 240 / 240 Weight last 48 hrs Weight 121 lb Weight 118 lb 3.2 oz Physical Exam 2 Const: COMMON NORMALS: no acute distress, patient oriented x3 and alert G ENERAL APPEARANCE: cooperative and comfortable NUTRITIONAL APPEARANCE: other (Skin folds due to rapid weight loss) HENMT: COMMON NORMALS: normocephalic, atraumatic, hearing grossly normal bilaterally, external ears normal, Normal external nose present and moist oral mucous membranes HEAD & SCALP: normocephalic and atraumatic NOSE: Normal external nose present EXTERNAL EAR: Yes external ears normal Eye: COMMON NORMALS: EOMs intact bilaterally and no scleral icterus GENERAL EYE: appearance normal, both eyes and all related structures ALIGNMENT: Yes alignment normal EYELID: eyelids normal Neck/C-Spine: GENERAL: Yes normal visual inspection and Yes trachea midline Resp: COMMON NORMALS: normal respiratory effort, No retractions and No use of accessory muscles EFFORT & INSPECTION: Yes able to speak in complete sentences and Yes symmetric chest movement Cardio: COMMON NORMALS: regular rate and regular rhythm RATE: regular rate RHYTHM: regular rhythm PERIPHERAL PULSES: radial pulses present GI: COMMON NORMALS: Soft to palpation INSPECTION: Yes normal to inspection PALPATION: Yes Soft to palpation, Yes Tenderness to palpation present (GI) (mild epigastric), No Guarding due to palpation present (GI) and No Rigid due to palpation Neuro: COMMON NORMALS: patient oriented x3 SENSORIUM/ORIENTATION: Yes alert Psych: COMMON NORMALS: mental status grossly normal, cooperative, normal affect and speech normal APPEARANCE: Yes grossly normal ATTITUDE: Yes calm ACTIVITY/MOTOR BEHAVIOR: Yes appropriate eye contact SPEECH: Yes normal speech Data 08/16/23 15:27 08/19/23 02:32 A&P Assessment and plan (1) Gastric mass: Most likely gastric cancer, potentially exacerbated by recent heavy NSAID use. Liver mass potentially concerning for metastasis with reactive inflammatory versus metastatic intraperitoneal lymphadenopathy. Patient recovered well following EGD, biopsies pending. Attestations 2 Medical Necessity Statement*: Requires further hospitalization for management of abdominal pain and GI bleed in setting of ulcerated gastric mass concerning for malignancy, with additional concerns regarding provisions for safe discharge planning. Coding Level of Care Code Acute Code for [facility] Fwd Diagnoses Gastric mass K31.89
[2023-08-19] MEDS: acetaminophen 325 mg Tablet 650 MG PO (11:32)
--- NOTE | 2023-08-19 12:38 | P.DS_ITS ---
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 She experienced a syncopal episode prior to work the other day. She was found to have severe orthostatic hypotension and evidence of active bleeding with melena. In April she had similar symptoms and an EGD showed a gastric mass. Endoscopy showed evidence that it was most likely malignancy. However she did not follow-up with Dr. Basilio at the time. She also was found to have gastritis and she was started on Protonix once a day. At some point she was started on Cipro and Flagyl for abdominal pain. I am unclear if this was thought to be due from H. pylori infection which was tested back in April and negative. Or for just general abdominal pain/empiric therapy for infection. She reported being severely nauseous and having vomiting. And this is most likely due to Flagyl. This was stopped EGD was performed again and again showing gastric mass with confirmation from a second doctor that this is most likely malignancy. It is nonobstructing. Biopsies were taken again but highly suspect will not be able to make diagnosis On CT abdomen and pelvis a liver mass was noted highly suspect for metastasis. This will need biopsied at a tertiary care center, as we do not perform this procedure at this hospital I have major concerns about patient's understanding of disease and intensity of treatment required. While she is calmer and more accepting of the cancer diagnosis she lacks caregiver support. She lives with her nephew who cannot drive. I have been informed that patient's living condition is very poor. Per report by friend there is evidence of hoarding, insect infestation and animal waste deposits. I have contacted Gemma White from our risk service who recommends close follow-up with between patient's primary care and surgeon. I have spoken with Giovanna Martinez the category development manager to assist with follow-up. I would recommend a neuropsych eval for capacity of decision making and overall competency. She does not have support to provide 24-hour care. There may need to be consideration for guardian not only for her but also her nephew. She will be off work until medically stable and arrangements made for future care. Physical Exam Narrative: Patient is a petite, thin, evidence of weight loss in a short time with multiple skin folds Patient appears chronically ill. But no acute distress at time of examination Heart: Regular rate and rhythm normal S1-S2 without murmurs clicks gallops or rubs Lungs clear to auscultation anteriorly and posteriorly without wheezes rales or rhonchi Abdomen: No palpable mass but there is fullness in the epigastrium she is slightly tender there otherwise normal active bowel sounds no rebound rigidity guarding no hepatosplenomegaly Extremities no clubbing cyanosis or edema she is very thin Skin is warm and dry and she is rather pale. No rashes or lesions noted Discharge Data Studies Completed and Pending Completed Studies During Hospitalization Category Date Time Status CT abdomen pelvis w con* [id number] Stat Cat Scan 08/16/23 15:[address] head wo con* [id number] Stat Cat Scan 08/16/23 15:27 Completed Pending at discharge Category Date Time Status Pathology: Surgical [PTH] Routine Pth 08/17/23 16:06 Ordered Radiology Impressions Abdomen/Pelvis CT 08/16/23 15:27 IMPRESSION: 1. Abnormal thickening of the distal stomach wall with gastric distension. These findings have not changed over the past several months. Diagnostic possibilities include gastric carcinoma versus peptic ulcer disease 2. Stable left adrenal adenoma 3. Stable upper abdominal adenopathy Head CT 08/16/23 15:27 IMPRESSION: No acute intracranial abnormality. Laboratory Results WBC 11.73 10^3/uL (3.29-11.43) H 08/16/23 15: RBC 4.12 10^6/uL (3.85-5.65) 08/16/23 15: Hgb 9.30 g/dL (11.27-16.99) L 08/16/23 15: Hct 32.1 % (36-47) L 08/16/23 15: MCV 77.9 fl (85-98) L 08/16/23 15: MCH 22.6 pg (27-33) L 08/16/23 15: MCHC 29.0 g/dL (30-55) L 08/16/23 15: RDW 16.0 % (12.1-15.1) H 08/16/23 15:27 Plt Count 539 10^3/cmm (157-399) H 08/16/23 15: MPV 8.5 fL (7.4-10.4) 08/16/23 15: Neut % (Auto) 70.8 % 08/16/23 15: Lymph % (Auto) 19.9 % 08/16/23 15: [place] % (Auto) 8.0 % 08/16/23 15: Eos % (Auto) 0.6 % 08/16/23 15: Baso % (Auto) 0.4 % 08/16/23 15: Neut # (Auto) 8.30 10^3/uL (1.8-7.7) H 08/16/23 15: Lymph # (Auto) 2.3 10^3/uL (0.8-4.8) 08/16/23 15: [place] # (Auto) 0.9 10^3/uL (0.2-0.9) 08/16/23 15: Eos # (Auto) 0.1 10^3/uL (0.0-0.8) 08/16/23 15: Baso # (Auto) 0.1 10^3/uL (0.0-0.1) 08/16/23 15: Nucleated RBC % (auto) 0 % 08/16/23: Nucleated RBCs # 0.0 /100WBC 08/16/23 15: Sodium 144 mmol/L (136-145) 08/19/23 02:32 Potassium 3.1 mmol/L (3.5-5.1) L 08/19/23 02:32 Chloride 114 mmol/L (98-107) H 08/19/23 02:32 Carbon Dioxide 23 mmol/L (22-29) 08/19/23 02:32 Anion Gap 10.1 (5-19) 08/19/23 02:32 BUN 2 mg/dL (6-20) L 08/19/23 02:32 Creatinine 0.7 mg/dL (0.5-0.9) 08/19/23 02:32 GFR Calculation 85.9 mL/min (90-130) L 08/19/23 02:32 Glucose 84 mg/dL (65-115) 08/19/23 02:32 Calculated Osmolality 293 mOsm/kg (285-295) 08/19/23 02:32 Lactic Acid 3.0 mmol/L (0.5-2.2) H 08/16/23 15:27 Lactic Acid (Sepsis) 2.0 mmol/L (0.5-2.2) 08/16/23 18:58 Calcium 8.0 mg/dL (8.5-10.5) L 08/19/23 02:32 Magnesium 1.9 mg/dL (1.7-2.3) 08/19/23 02:32 Total Bilirubin 0.4 mg/dL (0.15-1.2) 08/16/23 15:27 AST 12 U/L (0-32) 08/16/23 15:27 ALT 8 U/L (0-33) 08/16/23 15:27 Alkaline Phosphatase 69 U/L (35-105) 08/16/23 15:27 Creatine Kinase 24 U/L (26-192) L 08/16/23 15:27 Troponin T Baseline < 6 ng/L (0-10) 08/16/23 15:27 Troponin T 120 Minute 7.61 ng/L (0-10) 08/16/23 17:24 Delta Troponin T 1.22238 ABS# (0-10) 08/16/23 17:24 Troponin T Hi Sens 6Hr 8.93 ng/L (0-10) 08/16/23 21:26 Troponin T Hi Sens 6Hr Delta 2.63724 ng/L (0-12) 08/16/23 21:26 Total Protein 6.4 g/dL (6.6-8.7) L 08/16/23 15:27 Albumin 3.9 g/dL (3.5-5.2) 08/16/23 15:27 Globulin 2.5 g/dL (1.3-4.6) 08/16/23 15:27 Lipase 56 U/L (13-60) 08/16/23 15:27 Urine Color Yellow (Yellow) 08/16/23 16:25 Urine Appearance Sl hazy (CLEAR) A 08/16/23 16:25 Urine pH 6 (5-7) 08/16/23 16:25 Ur Specific [place] 1.010 (1.005-1.030) 08/16/23 16:25 Urine Protein 1+ (Negative) H 08/16/23 16:25 Urine Glucose (UA) Norm (Normal) 08/16/23 16:25 Urine Ketones 1+ (Negative) H 08/16/23 16:25 Urine Blood Neg (Negative) 08/16/23 16:25 Urine Nitrate Negative (Negative) 08/16/23 16:25 Urine Bilirubin Neg (Negative) 08/16/23 16:25 Urine Urobilinogen Norm mg/dL (Negative) 08/16/23 16:25 Ur Leukocyte Esterase Trace (Negative) H 08/16/23 16:25 Urine RBC None /hpf (0-2) 08/16/23 16:25 Urine WBC 0-4 /hpf (0-5) H 08/16/23 16:25 Ur Squamous Epith Cells 5-10 /hpf (0-5) H 08/16/23 16:25 Amorphous Sediment Not Reportable 08/16/23 16:25 Urine Bacteria None /hpf (NONE) 08/16/23 16:25 Hyaline Casts 0-4 /lpf H 08/16/23 16:25 Urine Mucus Trace /hpf 08/16/23 16:25 Serum Ketones Negative (Negative) 08/16/23 15:27 H. pylori IgG Antibody Negative (Negative) 08/16/23 17:24 Vitals Last Vital Signs Temp 98.3 F 08/19/23 11:17 Pulse 64 08/19/23 11:17 Resp 16 08/19/23 11:17 BP 131/74 08/19/23 11:17 Pulse Ox 96 08/19/23 11:17 O2 Del Method Room Air 08/19/23 11:17 Discharge Plan Discharge Patient Disposition: Home Condition: Stable Prescriptions: Continued ondansetron HCl 4 mg tablet 4 mg PO Q8H PRN (Reason: Nausea And Vomiting) loperamide [Imodium] 2 mg Capsule 2 mg PO PRN PRN (Reason: loose stools) escitalopram oxalate 20 mg tablet 20 mg PO BEDTIME Changed pantoprazole 40 mg tablet,delayed release (DR/EC) 40 mg PO BID Qty: 60 0RF Discontinued metronidazole 500 mg tablet 500 mg PO Q8H 7 Days Qty: 21 0RF ciprofloxacin HCl [Cipro] 500 mg tablet 500 mg PO BID Qty: 14 0RF Discharge Orders: Discharge Order (Routine); Ordered 08/19/23 Ordered By: Michael Sherwood Referrals: Julio Jay DO [Primary Care Provider] - Discharge Diet: Advance as tolerated Discharge Activity: Increase activity as tolerated and Return to work/school after cleared by PCP/Specialist Patient Instructions: GI Discharge Instructions, Opioid Safety Discharge Attestations Time Spent in Discharge Care*: greater than 30 min Quality Metrics Clinical Quality Measures [ No reported AMI, CVA or VTE this stay] Coding Level of Care Code Acute Code for [facility] Fwd Diagnoses Gastric mass K31.89
== END 2023-08-19 14:07 | disposition home or self-care (01) | DRG 392 ==
LOC: ER 17:06 → MEDSURG 17:34
PROVIDERS: Surgery; Admitting Provider Internal Medicine; Emergency Provider Family Medicine; PCP Family Medicine; Visit Provider Internal Medicine
PROC: 0DJ08ZZ Inspection of Upper Intestinal Tract, Via Natural or Artificial Opening Endoscopic (ICD-10-PCS; CPT 43235; principal; 2023-08-17 15:30)
DX: K31.89 Other diseases of stomach and duodenum (principal); K92.1 Melena; G93.40 Encephalopathy, unspecified; E87.6 Hypokalemia; I95.1 Orthostatic hypotension; R63.4 Abnormal weight loss; Z68.24 Body mass index [BMI] 24.0-24.9, adult; R59.0 Localized enlarged lymph nodes; R16.0 Hepatomegaly, not elsewhere classified; D50.0 Iron deficiency anemia secondary to blood loss (chronic); K25.9 Gastric ulcer, unspecified as acute or chronic, without hemorrhage or perforation; F41.1 Generalized anxiety disorder; K21.9 Gastro-esophageal reflux disease without esophagitis; E11.9 Type 2 diabetes mellitus without complications; Z79.84 Long term (current) use of oral hypoglycemic drugs; I10 Essential (primary) hypertension; K29.70 Gastritis, unspecified, without bleeding
CPT/HCPCS: 36415; 43239; 70450; 74177; 80048; 80053; 81001; 82009; 82550; 83605; 83690; 83735; 84484; 85025; 86677; 88305; 88342; 93005; 96360; 99285; C9113; J1756; J2704; J3475; J3480; J7030; Q9967

== ENCOUNTER 2023-09-05 09:00 | Oncology outpatient (recurring) (ONCR) | payer OTHER, SELFPAY ==
[2023-08-28 12:31] LABS: Basophils % 0.6 %; Eosinophils # 0.1 10^3/uL (0.0-0.8); Hematocrit 33.7 % (36-47); Lymphocytes # 1.3 10^3/uL (0.8-4.8); Lymphocytes % 18.7 %; Mean Corpuscular HGB Conc 28.5 g/dL (30-55); Mean Corpuscular Hemoglobin 24.1 pg (27-33); Mean Corpuscular Volume 84.5 fl (85-98); Mean Platelet Volume 8.9 fL (7.4-10.4); Monocytes # 0.4 10^3/uL (0.2-0.9); Monocytes % 5.5 %; Neutrophils % 73.8 %; Nucleated Red Blood Cells % 0 %; Platelet Count 450 10^3/cmm (157-399); Red Blood Count 3.99 10^6/uL (3.85-5.65); Red Cell Distribution Width 21.2 % (12.1-15.1); Reticulocyte % 1.7 % (0.5-2.0); White Blood Count 7.05 10^3/uL (3.29-11.43)
[2023-08-28 12:34] LABS: Erythrocyte Sedimentation Rate 19 mm/hr (0-15)
[2023-08-28 13:07] LABS: 25 Hydroxy Vitamin D 9 ng/mL (30-100); Alanine Aminotransferase 8 U/L (0-33); Albumin Level 3.7 g/dL (3.5-5.2); Alkaline Phosphatase 57 U/L (35-105); Aspartate Amino Transferase 16 U/L (0-32); Blood Urea Nitrogen 18 mg/dL (6-20); Calcium 9.1 mg/dL (8.5-10.5); Carbon Dioxide 29 mmol/L (22-29); Chloride 105 mmol/L (98-107); Creatinine Clr Calc Pharmacy 68.0608; Ferritin 310 ng/mL (15-150); Globulin 2.8 g/dL (1.3-4.6); Glomerular Filtration Rate 102.7 mL/min (90-130); Glucose 116 mg/dL (65-115); Iron 30 ug/dL (37-145); Osmolality Calculated 295 mOsm/kg (285-295); Percent Saturation 10.9 % (20-50); Sodium 141 mmol/L (136-145); Thyroid Stimulating Hormone 2.49 uIU/mL (0.27-4.20); Total Bilirubin 0.3 mg/dL (0.15-1.2); Total Iron Binding Capacity 275 mcg/dl; Total Protein 6.5 g/dL (6.6-8.7); Unsaturated Iron Binding 245 ug/dL (112-347); Vitamin B12 235 pg/mL (232-1245)
[2023-08-28 13:11] LABS: Folate Level 10.9 ng/mL (4.8-37.3)
[2023-08-28 13:12] LABS: Hepatitis A Antibody IgM Non-Reactive (Nonreactive); Hepatitis B Core AB, Total Non-Reactive (Nonreactive); Hepatitis B Surface AB 37.9 (11.5-1000); Hepatitis B Surface Antigen Non-Reactive (Nonreactive); Hepatitis C Virus Antibody Non-Reactive (Nonreactive)
[2023-08-28 13:29] LABS: Free T4 Free Thyroxine 0.99 ng/dL (0.82-1.77); Tumor Marker Alpha Fetoprotein 4.7 ng/mL (0-8.3)
[2023-08-29 15:10] LABS: Cyclic Citrullinated Peptide <16 UNITS
[2023-08-30 19:35] LABS: Copper Level 113 mcg/dL (70-175)
[2023-08-31 12:45] LABS: Soluble Transferrin Receptor 3.79 mg/L (0.76-1.76)
[2023-08-31 15:19] LABS: Methylmalonic Acid 181 nmol/L (87-318)
[2023-09-05 09:36] VITALS: BP 100/63; PULSE 79; RESP 16; TEMP 37.2; O2SAT 100
[2023-09-05] MEDS: ferric carboxy (IVPB) 750 MG in sodium chloride 0.9% (100 ml) 100 ML 345 MG IV (09:48)
[2023-09-05 10:12] VITALS: BP 94/58; PULSE 88; RESP 16; TEMP 37.4; O2SAT 100
== END 2023-09-11 23:59 | disposition home or self-care (01) ==
PROVIDERS: PCP Family Medicine; Visit Provider Internal Medicine
DX: Z53.9 Procedure and treatment not carried out, unspecified reason (principal); D50.9 Iron deficiency anemia, unspecified
CPT/HCPCS: 36415; 80053; 82105; 82306; 82525; 82607; 82728; 82746; 83540; 83550; 83921; 84238; 84439; 84443; 85025; 85045; 85651; 86200; 86705; 86706; 86709; 86803; 87340; 96365; J1439

== ENCOUNTER 2023-09-06 10:47 | Outpatient (CLI) | payer OTHER, SELFPAY ==
--- NOTE | 2023-09-06 14:33 | P.DIET_ITS ---
Reason for Visit: Unintended weight loss Person Interviewed: Patient Medical History, Labs and Background: Dayana said she thinks she is there because people think she needs to gain weight. She showed me a picture of when she was around 160-165lbs, but she couldn't tell me when it was taken. Height: 4 ft 11 in Weight: 96 lb BMI: 19.4 kg/m2 UBW: 160-165lbs Weight History: Leena couldn't remember when she weighed 160-165lbs. Concerns and Goals: She said people are telling her to gain weight. Sleep Hygiene: She couldn't really answer. Other Feeding Issues: It was difficult to follow Dayana's answers to questions. She did say savory foods make her nauseas. When asked for an example she mentioned pulled pork, then said someone she knew choked on that and . There seemed to be fear surrounding certain foods - but it was difficult for her to explain why, just that she shouldn't eat it. Food Allergies and Sensitivities: NKA, but she did say that she has to eat less and stay away from hot and spicy foods. Meds, Supplements & Other: She couldn't name any meds or supplements. 24 Hour Recall: Breakfast Time: Snack Time: Lunch Time: Snack Time: Dinner Time: Snack Time: Soda vs Milk vs Water: She likes propel water and tries to drink 1 bottle/day and mentioned diet soda. Again, it was difficult to clarify how much she drank of anything. Additional Comments: Dayana was very sweet. However, she seemed somewhat unclear as to why she was meeting with a Dietitian. It was difficult for her to articulate what she ate and what she liked to eat. Often she would start to answer and then meander into other thoughts. Recommendations: Assessment: Dayana knows she has lost weight and I think understands she needs to gain weight. However she doesn't drive much and her nephew who lives with her doesn't drive so just buying food will be tricky. While she was with me I called [employer] but the minimum age is 60 and they would not consider her even with her current situation. Nutrition Diagnosis: Protein calorie malnutrition r/t chronic illness AEB severe weight loss and eating <75 of EEN% for >1 month. Intervention: We looked at a handout for weight gain that recommended eating 4-5 times/day and always including nutrient dense food in each snack. She likes strawberry ensure and will have that if she can afford it. We also discussed meals and snacks that she could have on hand that would allow her to eat that many times/day. Drinking water was encouraged, but only after eating so as to not fill up on that. There are fears around certain foods - I shouldn't eat that and each time I encouraged her that she could eat that particular food. Even with water, she said she only drinks pure water. Lastly I said she should try to always add peanut butter, cream or cottage or regular cheese, and butter or gravies to her food for additional calories. Monitoring and Evaluation: It is difficult to say how much Dayana grasps. And I don't know if she can overcome her fears regarding certain foods - I strongly encouraged her too and she has friends at religious and the hospital who are helping her. She has my number as well as the number of other [facility] workers who are helping her. Coding Level of Care Code Nutrition/Individ/Init 60 min Time Spent (min) 60
== END 2023-09-06 10:48 | disposition home or self-care (01) ==
LOC: DIET 10:51
PROVIDERS: PCP Family Medicine; Visit Provider Internal Medicine
DX: R63.4 Abnormal weight loss (principal); Z68.1 Body mass index [BMI] 19.9 or less, adult
CPT/HCPCS: 97802

== ENCOUNTER 2023-09-18 10:35 | Outpatient (CLI) | payer OTHER, SELFPAY ==
--- NOTE | 2023-09-18 11:30 | PETR_ITS ---
PROCEDURE INFORMATION: Exam: PET/CT Skull Base to Mid-thigh Exam date and time: 09/18/2023 11:25 AM Age: 58 years old Clinical indication: Gastric mass suspicious for malignancy; Abnormal thickening of the distal stomach wall with gastric distension on prior CT exams in August 2023, gastric carcinoma versus peptic ulcer disease; Prior surgery; Surgery date: 6+ months; Surgery type: Polypectomy. LABS AND CLINICAL REPORTS: Glucose: 89 mg/dl Treatment strategy for malignancy (PET staging): Initial Staging (PI) TECHNIQUE: Imaging protocol: Following at least four-hour fasting and following the injection of radiopharmaceutical, low dose CT images were obtained. Then, PET images were obtained. Attenuation corrected images were constructed using the CT scan. Fused images of PET and CT were reviewed. The standardized uptake values (SUV) reported below are maximum values within a region of interest, expressed in gm/ml. Exam includes orbital meatal line to mid-thigh. Radiopharmaceutical: 11.22 mCi F-18 FDG (Fluorodeoxyglucose), IV. Time of imaging post radiopharmaceutical administration: 1 hour Injection site: Left forearm COMPARISON: CT abdomen pelvis w con 08/16/2023, 08/13/2023, 04/23/2023 FINDINGS: Brain: Visualized brain has normal physiologic uptake. Pharynx: No abnormal uptake. Larynx: No abnormal uptake. Lungs, pleura and trachea: No abnormal uptake. No lung nodules or masses. Small left pleural effusion and trace amount of right pleural effusion is a new finding since 08/16/2023. Heart: Normal physiologic uptake. There is no cardiomegaly. No coronary artery calcification is visualized. There is no pericardial effusion. Mediastinal space: No abnormal uptake. Liver: No abnormal uptake. Ill-defined hypodensity within the periportal area in the segment 3 of the liver (series 2, image 105) corresponding to abnormality described in the report of CT abdomen pelvis on 08/13/2023 is not FDG avid. Gallbladder and bile ducts: No abnormal uptake. No calcified gallstones. Pancreas: No abnormal uptake. Spleen: No abnormal uptake. Adrenal glands: No abnormal uptake. Hypodense thickening of the body of the left adrenal to 1.3 cm likely represents benign hyperplasia or small benign adrenal cortical adenoma. No right adrenal nodules. Kidneys and ureters: Normal physiologic uptake. No hydronephrosis. 3 mm nonobstructing stone in the lower nile of the right kidney. Stomach and bowel: Concentric wall thickening in the gastric antrum involving about 6 cm long segment of the distal antrum and the pylorus with intense uptake up to 13.3 SUV is compatible with malignancy. Diffusely increased uptake in the left and right colon represents benign finding. Given wall thickening in descending colon, splenic flexure, transverse colon with slight haziness of the paracolic fat colitis is not excluded. Intraperitoneal and retroperitoneal spaces: No abnormal uptake. Minimal amount of free intraperitoneal fluid in the pelvis. Bladder: Normal physiologic uptake. Reproductive: No abnormal uptake. Vasculature: No abnormal uptake. No aortic aneurysm. Lymph nodes: 2.8 x 1.6 x 2.2 cm mass within the gastrohepatic ligament with the highest uptake of 20.7 SUV is compatible with metastatic lymphadenopathy. Periportal lymph node on axial image 114 with a short axis of 1.4 cm measures 3.2 SUV. A couple of upper omental nodules within the lesser omentum anteriorly to the gastric tumor with a short axis of 0.8 cm (series 3, image 120 and 123) are not FDG avid. No FDG avid lymphadenopathy in the head, neck, chest, pelvis, and extremities. There is sequela of exposure to granulomatous disease with calcified granuloma in normal size right subcarinal lymph node. Bones/joints: No abnormal uptake in the visualized axial and appendicular skeleton. Soft tissues: No abnormal uptake in the visualized head, neck, chest, abdomen, pelvis, and extremities. PET/PET [facility] INITIAL [id number] IMPRESSION: 1. Concentric wall thickening in the gastric antrum and the pylorus (13.3 SUV) compatible with malignancy. Locoregional metastatic lymphadenopathy within the gastrohepatic ligament with the highest uptake of 20.7 SUV. Mildly increased uptake of 3.2 SUV within mildly enlarged periportal lymph node is nonspecific. No abnormal uptake within a couple of anterior perigastric lymph nodes in the lesser omentum with a short axis smaller than 1 cm. No abnormal FDG uptake in the liver including the abnormal periportal hypodensity in the segment 3 documented as hypoenhancing area on prior CT exams. No FDG avid findings outside of the abdomen. 2. Intense uptake in the right and left colon with apparent wall thickening and slight haziness of the paracolic fat for clinical correlation with acute colitis.
== END 2023-09-18 10:36 | disposition home or self-care (01) ==
LOC: RAD 10:36
PROVIDERS: PCP Family Medicine; Visit Provider Internal Medicine
DX: K31.89 Other diseases of stomach and duodenum (principal); K76.9 Liver disease, unspecified
CPT/HCPCS: 78815; A9552

== ENCOUNTER 2023-10-10 10:26 | Oncology outpatient (recurring) (ONCR) | payer OTHER, SELFPAY ==
[2023-09-12 08:57] VITALS: BP 91/60; PULSE 93; RESP 16; TEMP 36.6; O2SAT 98
[2023-09-12] MEDS: ferric carboxy (IVPB) 750 MG in sodium chloride 0.9% (100 ml) 100 ML 345 MG IV (09:13)
[2023-09-12 11:21] VITALS: BP 92/62; PULSE 74; RESP 16; TEMP 36.4; O2SAT 94
[2023-10-03 09:29] LABS: Basophils % 0.4 %; Eosinophils # 0.2 10^3/uL (0.0-0.8); Eosinophils % 1.5 %; Hematocrit 40.8 % (36-47); Lymphocytes # 1.4 10^3/uL (0.8-4.8); Mean Corpuscular HGB Conc 31.4 g/dL (30-55); Mean Corpuscular Volume 92.3 fl (85-98); Mean Platelet Volume 8.4 fL (7.4-10.4); Monocytes # 0.5 10^3/uL (0.2-0.9); Monocytes % 4.4 %; Neutrophils # 8.71 10^3/uL (1.8-7.7); Nucleated Red Blood Cells % 0 %; Platelet Count 414 10^3/cmm (157-399); Red Blood Count 4.42 10^6/uL (3.85-5.65); White Blood Count 10.89 10^3/uL (3.29-11.43)
[2023-10-03 09:59] LABS: Alanine Aminotransferase 10 U/L (0-33); Albumin Level 3.1 g/dL (3.5-5.2); Alkaline Phosphatase 86 U/L (35-105); Anion Gap 12.1 (5-19); Aspartate Amino Transferase 14 U/L (0-32); Blood Urea Nitrogen 8 mg/dL (6-20); Calcium 8.1 mg/dL (8.5-10.5); Carbon Dioxide 24 mmol/L (22-29); Chloride 104 mmol/L (98-107); Free T4 Free Thyroxine 0.96 ng/dL (0.82-1.77); Globulin 2.9 g/dL (1.3-4.6); Glomerular Filtration Rate 163.9 mL/min (90-130); Glucose 126 mg/dL (65-115); Osmolality Calculated 282 mOsm/kg (285-295); Potassium 4.1 mmol/L (3.5-5.1); Sodium 136 mmol/L (136-145); Thyroid Stimulating Hormone 2.56 uIU/mL (0.27-4.20); Total Bilirubin 0.2 mg/dL (0.15-1.2)
[2023-10-03 10:32] LABS: 25 Hydroxy Vitamin D 8 ng/mL (30-100)
--- NOTE | 2023-10-10 12:04 | N.ONRAD NP_ITS ---
Radiation Oncology New Patient Visit Patient: Dayana Landin MR#: [id number] : 1965> Age: 58> Sex: Female> Dictated by: Dr. Lilian Chung Date of Service: 10/10/2023 Referring Physician(s) : Anitha Diagnosis: caner of the duodenum Radiotherapy to date: Summary > No prior radiation therapy. Chief Complaint / History of Present Illness: Patient is a 58-year-old lady who works here at [employer]. She has for a year or 2 had abdominal problems. She has had abdominal pain. She has been found to have anemia. She even got iron infusions. She was treated for GERD. In September she underwent an EGD and had a biopsy done which was nondiagnostic.. She continued to have issues and in April had a repeat biopsy which was again negative. She has had intermittent black stools and a subsequent weight loss over the last year going from 165 down to her current weight of 96. Her most recent PET scan has shown uptake in a mass in the gastric antrum and pylorus with an SUV of 13.3. She also had an adjacent lymph node which had an SUV of 20.7. There is additional uptake in the right and left colon consistent with acute colitis. She is here today in preparation for starting treatment. She is scheduled to visit with physicians in [place] on October 14 and October 21 and hopefully will have a diagnosis during 1 of those encounters with a biopsy. She currently is pain-free and complains only of fatigue. Current Medications: ergocalciferol (vitamin D2) 50,000 units PO .weekly, escitalopram oxalate 20 mg PO BEDTIME, loperamide 2 mg PO PRN PRN, mirtazapine (Remeron) 15 mg PO DAILY, ondansetron HCl 4 mg PO Q8H PRN, pantoprazole 40 mg PO BID, sennosides-docusate sodium 8.6-50 mg (Senna Plus) 2 tab-caps (2 x 8.6-50 mg) PO DAILY Allergies: No Known Allergies Allergy Medical History: No previous radiation therapy., Psychiatric care, Recent unexplained weight loss, Abdominal lymphadenopathy, Syncope, Abnormal weight loss, Abdominal pain, Gastric mass, GERMAN (generalized anxiety disorder), Iron deficiency anemia, Microcytic anemia, GERD (gastroesophageal reflux disease), No pertinent past medical history: neghx:thyroid,dvt/pe, PCP: Pierre, Type 2 diabetes mellitus, without long-term current use of insulin, Dyslipidemia, Hypertension Surgical History: Hx of colonoscopy with polypectomy, No pertinent past surgical history Family History: Mother- Diabetes, Stroke/ Father- Hypertension Denies family history of Colon cancer, Ovarian cancer, Heart disease, Hyperlipidemia, Breast cancer, Uterine cancer, Thyroid disease Social History: Smoking and tobacco/nicotine status: never used tobacco/nicotine Alcohol intake: former Substance/Drug Use: never Current occupation: EVS AT [employer] Current Complaints / Review of Systems: . Vital Signs: Performed on 10/10/2023 10:56 AM BMI - 19.471 kg/m2, Height - 59 in, Weight - 96.4 lbs, Temperature - 97.9 f, Pulse - 80 /min, Respiration - 16 /min, O2 Sat - 100 %, Pain - 0, Fatigue - 2 and BP - 112/ 74 mm(hg). Physical Exam: General: Patient is a pleasant 58-year-old lady. She is accompanied today by a nephew and a friend. HEENT normocephalic atraumatic. Pupils are equal, sclera clear, extraocular muscles intact. Pulmonary: Respiratory rate is regular nonlabored Cardiovascular: Regular rate and rhythm Abdomen: Patient is quite thin with minimal adipose tissue Extremities: Without clubbing cyanosis or edema Skin: Warm and dry without ecchymoses Neurological: Alert and orient x 3. 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 Hopefully they will be able to obtain tissue for diagnosis. We talked about how it was most likely cancer due to the increased activity on the PET scan. It appeared to be very localized with only 1 lymph node involved. We talked about the usual course of treatment with cancers in this area which are a combination of radiation and chemotherapy. I reviewed with her the simulation process. We discussed the daily treatment regiment. We reviewed the risks and side effects both acute and long-term. At this point all of her questions were answered as were the questions of her friend. They will let us know when she had her biopsy so that we can begin to call for the results. Signed by: 10/10/2023 12:02:43 PM <<Signature on File>> Time spent with patient: CPT Code: CPT Code:
== END 2023-10-12 23:59 | disposition home or self-care (01) ==
PROVIDERS: Internal Medicine; PCP Family Medicine; Visit Provider Radiology Radiation Oncology
DX: Z53.9 Procedure and treatment not carried out, unspecified reason (principal)
CPT/HCPCS: 36415; 80053; 82306; 84439; 84443; 85025; 96365; J1439

== ENCOUNTER 2023-11-07 11:45 | Oncology outpatient (recurring) (ONCR) | payer OTHER, SELFPAY ==
[2023-11-07 12:18] LABS: Basophils % 0.4 %; Eosinophils # 0.1 10^3/uL (0.0-0.8); Eosinophils % 1.4 %; Hematocrit 35.9 % (36-47); Lymphocytes # 1.7 10^3/uL (0.8-4.8); Lymphocytes % 16.1 %; Mean Corpuscular HGB Conc 32.3 g/dL (30-55); Mean Corpuscular Hemoglobin 29.9 pg (27-33); Mean Corpuscular Volume 92.5 fl (85-98); Mean Platelet Volume 8.5 fL (7.4-10.4); Monocytes # 0.5 10^3/uL (0.2-0.9); Monocytes % 4.6 %; Neutrophils # 7.88 10^3/uL (1.8-7.7); Neutrophils % 76.5 %; Nucleated Red Blood Cells % 0 %; Platelet Count 404 10^3/cmm (157-399); Red Blood Count 3.88 10^6/uL (3.85-5.65); Red Cell Distribution Width 15.8 % (12.1-15.1); White Blood Count 10.28 10^3/uL (3.29-11.43)
[2023-11-07 12:37] LABS: Alanine Aminotransferase 12 U/L (0-33); Albumin Level 3.8 g/dL (3.5-5.2); Alkaline Phosphatase 110 U/L (35-105); Aspartate Amino Transferase 14 U/L (0-32); Blood Urea Nitrogen 11 mg/dL (6-20); Calcium 9.2 mg/dL (8.5-10.5); Carbon Dioxide 28 mmol/L (22-29); Chloride 99 mmol/L (98-107); Globulin 3.1 g/dL (1.3-4.6); Glomerular Filtration Rate 102.7 mL/min (90-130); Glucose 182 mg/dL (65-115); Lactate Dehydrogenase 163 U/L (135-214); Osmolality Calculated 290 mOsm/kg (285-295); Sodium 138 mmol/L (136-145); Total Bilirubin 0.2 mg/dL (0.15-1.2); Total Protein 6.9 g/dL (6.6-8.7)
[2023-11-08 13:54] LABS: Uric Acid 5.6 mg/dL (2.4-5.7)
== END 2023-11-11 23:59 | disposition home or self-care (01) ==
LOC: ONCMED 11:46
PROVIDERS: PCP Family Medicine; Visit Provider Internal Medicine Medical Oncology
DX: D50.9 Iron deficiency anemia, unspecified; C16.9 Malignant neoplasm of stomach, unspecified; C83.39 Diffuse large B-cell lymphoma, extranodal and solid organ sites
CPT/HCPCS: 36415; 80053; 83615; 84550; 85025; 96523

== ENCOUNTER 2023-11-08 14:38 | Outpatient (CLI) | payer OTHER, SELFPAY ==
--- NOTE | 2023-11-08 15:00 | USCV_ITS ---
Dayana Landin Age: 58 Gender: F : 1965 Exam Date: 11/08/2023 14:51 Ordering Phys: Gustabo Moreno MD Technologist: [place] [facility] [place] Indication: high risk meds BP: 120 / 70 HR: Rhythm: Sinus Technical Quality: Adequate MEASUREMENTS (Male / Female) Normal Values 2D ECHO LV Diastolic Diameter PLAX 3.4 cm 4.2 - 5.9 / 3.9 - 5.3 cm IVS Diastolic Thickness 1.1 cm 0.6 - 1.0 / 0.6 - 0.9 cm IVS Systolic Thickness 1.5 cm LVPW Diastolic Thickness 1.4 cm 0.6 - 1.0 / 0.6 - 0.9 cm LVPW Systolic Thickness 1.6 cm LVOT Diameter 1.9 cm LV Ejection Fraction 2D Teich 57.1 % LV Ejection Fraction MOD 2C 75.1 % LV Ejection Fraction 2C AL 74.9 % LA Diameter 3.4 cm RA Systolic Volume 4C AL 21.7 ml RA Systolic Volume 4C MOD 20.9 ml Aorta at Sinotubular Diameter 2.7 cm IVC Diameter 1.2 cm M-MODE LA Ao Ratio MM 0.8 AV Cusp Separation MM 1.9 cm FINDINGS Left Ventricle Mild concentric left ventricle hypertrophy. Estimated LV ejection fraction of 75%.no regional wall motion abnormalities. Right Ventricle Normal size and ejection fraction Right Atrium Appears to be of normal size Left Atrium Appears to be of normal size Mitral Valve No gross abnormalities noted Aortic Valve Thickened aortic valve. Tricuspid Valve No gross abnormalities noted Pulmonic Valve Pulmonic valve not well visualized. Pericardium No pericardial effusion. Aorta Normal aortic annulus size. IVC Inferior vena cava not visualized. CONCLUSIONS Mild concentric left ventricle hypertrophy. Estimated LV ejection fraction of 75%. No regional wall motion abnormalities. Thickened aortic valve. Normal cardiac chamber sizes There is no pericardial effusion. No similar previous studies are available for comparison Dr Chelle Fuller MD [facility] (Electronically Signed) Final Date: 08 November 2023 19:18 S
== END 2023-11-08 14:39 | disposition home or self-care (01) ==
PROVIDERS: PCP Family Medicine; Visit Provider Internal Medicine Medical Oncology
DX: C83.39 Diffuse large B-cell lymphoma, extranodal and solid organ sites (principal); Z79.899 Other long term (current) drug therapy; I35.2 Nonrheumatic aortic (valve) stenosis with insufficiency
CPT/HCPCS: 93308

== ENCOUNTER 2023-11-12 16:05 | Emergency (ER) | payer OTHER, SELFPAY ==
[2023-11-12] VITALS (47 sets, daily range): BP systolic 73–156; BP diastolic 45–95; PULSE 65–142; RESP 8–34; TEMP 35.8–37.2; O2SAT 94–100; BMI 18.1
--- NOTE | 2023-11-12 16:16 | XRR_ITS ---
PROCEDURE INFORMATION: Exam: XR Chest Exam date and time: 11/12/2023 4:37 PM Age: 58 years old Clinical indication: Cough and dyspnea; Additional info: Dyspnea/cough TECHNIQUE: Imaging protocol: Radiologic exam of the chest. Views: 1 view. COMPARISON: CR XR chest 1V portable [id number] 04/23/2023 11:43 AM FINDINGS: Tubes, catheters and devices: Infusion port catheter is in place with its tip in the superior vena cava. Lungs: Visualized portions of the right lung are clear. Pleural spaces: There is moderate sized left pneumothorax best seen at the left lung base with partial atelectasis of the left lower lobe. Heart/Mediastinum: Unremarkable. No cardiomegaly. Bones/joints: There are displaced fractures of the lateral aspects of the left 7th, 8th and 9th ribs. Soft tissues: There is some soft tissue emphysema within the left chest wall laterally. XR/XR chest 1V portable [id number] IMPRESSION: Left rib fractures in the left pneumothorax.
--- NOTE | 2023-11-12 16:16 | CTR_ITS ---
PROCEDURE INFORMATION: Exam: CT Abdomen And Pelvis With Contrast Exam date and time: 11/12/2023 5:06 PM Age: 58 years old Clinical indication: Abdominal pain; Localized; Left; Additional info: Abd pain; Fall struck left side of chest. History of malignancy. TECHNIQUE: Imaging protocol: Computed tomography of the abdomen and pelvis with contrast. Radiation optimization: All CT scans at this facility use at least one of these dose optimization techniques: automated exposure control; mA and/or kV adjustment per patient size (includes targeted exams where dose is matched to clinical indication); or iterative reconstruction. Contrast material: OMNI 350; Contrast volume: 80 ml; Contrast route: INTRAVENOUS (IV); COMPARISON: 1. PT PET skull to thigh INIT [id number] 09/18/2023 11:[address] abdomen pelvis w con* [id number] 08/16/2023 3:[address] abdomen pelvis w con* [id number] 08/13/2023 5:[address] abdomen pelvis w con* [id number] 04/23/2023 1:23 PM RADIATION DOSE METRICS: Total DLP (mGy-cm): 360.15 FINDINGS: Lungs: There is partial atelectasis of the left lower lobe. Pleural spaces: There is moderate left pneumothorax. Liver: There is a diffuse decrease in hepatic parenchymal density, consistent with moderate fatty infiltration. Hypodensity involving left lobe of the liver extending to the gastrohepatic ligament is less prominent than on the previous examinations from August. 8 mm probable hemangioma right lobe of the liver such as an image number 11 series 3 not significantly changed. Gallbladder and biliary ducts: Gallbladder is not distended. There is mildly increased enhancement of the gallbladder wall in there is some stranding in the pericholecystic fat. This is a finding of uncertain significance. Please correlate with the clinical exam. Pancreas: The pancreas is normal. Spleen: Subtle 3 mm splenic hypodensity posterior aspect of the spleen and 5 x 8 mm hypodensity upper portion of the anterior left spleen not significantly changed from the previous examinations. Adrenal glands: Lesions in the left adrenal gland, likely benign adenomas not significantly changed compared with 04/23/2023. The right adrenal gland is normal. Kidneys and ureters: There is focal scarring in the mid left kidney not significantly changed. There is a 3 mm sized nonobstructing stone in the lower pole of the right kidney. There is no evidence of hydronephrosis. Stomach and bowel: Moderate gastric dilatation not significantly changed. There is otherwise no evidence of intestinal obstruction. Appendix: Not identified Intraperitoneal space: There is some omental nodularity anterior to the stomach as noted on the PET scan slightly more prominent than on 09/18/2023. There is no free intraperitoneal air. There is no evidence of free intraperitoneal fluid. Vasculature: Unremarkable. No abdominal aortic aneurysm. Lymph nodes: There is gastrohepatic adenopathy not significantly changed from the recent previous examinations. There is thickening of the distal gastric antrum. Along the posterosuperior aspect of the distal gastric antrum there is new hypodense soft tissue abnormality which in part corresponds to some perigastric or periportal adenopathy in that location previously, however this is larger and appears to communicate with the posterior aspect of the distal gastric antrum with suggests the possibility of mass eroding into the stomach, or ulceration/perforation of gastric mass or malignancy. No associated free air is identified. Further evaluation suggested, especially given the history of melanotic stools. There are mildly prominent periaortic lymph nodes not significantly changed. Urinary bladder: Unremarkable as visualized. Reproductive: Unremarkable as visualized. Bones/joints: There is a minimally displaced fracture lateral aspect left 6th rib and displaced fracture lateral aspect of the left 7th rib. There is also subtle deformity of the lateral aspects of the left 9th and 10th ribs which may represent nondisplaced fractures. Soft tissues: See Lymph nodes finding. CT/CT abdomen pelvis w con* [id number] IMPRESSION: 1. Left rib fractures and left pneumothorax 2. Enlarging mass associated with the posterior aspect of the distal gastric antrum. Findings worrisome for either mass eroding into the stomach or developing gastric perforation. 3. Omental nodularity worrisome for omental metastasis 4. Periportal adenopathy unchanged 5. No free intraperitoneal air is identified COMMENTS: THIS REPORT CONTAINS FINDINGS THAT MAY BE CRITICAL TO PATIENT CARE. The findings were verbally communicated via telephone conference with JUANI COOL at 5:33 PM CDT and again at 6:05 p.m. on 11/12/2023. The findings were acknowledged and understood.
--- NOTE | 2023-11-12 16:18 | W.ED.FALL ---
Documented by User: Khalif Morrison DO 11/13/23 07:10 HPI - Fall General: Chief Complaint: Weakness Stated Complaint: fall,weakness Time Seen by Provider: 11/12/23 16:07 Source: patient Mode of arrival: ambulatory History of Present Illness: 50-year-old female presents to the emergency room via EMS. She was found down by family member covered in feces she fell sometime this morning is been lying on the ground of majority of the day probably around 7 to 8 hours. Patient is awake able to answer questions but is somewhat lethargic she is hypotensive and tachycardic. She has a history of large B-cell lymphoma. She recently had a laparoscopy [facility] she cannot tell me exactly what happened while she was there. MD complaint: fall Onset (ago): day(s) Associated symptoms-after fall: Denies abdominal pain, chest pain or neck pain Review of Systems Const: Denies: fever(s) or chills Card: Denies: chest pain Resp: Denies: dyspnea GI: Denies: abdominal pain : Denies: dysuria, urinary frequency or urinary urgency Musc: Denies: neck pain or back pain Skin/Breast: Denies: rash PFSH ED PFSH: Medical History Diffuse large B-cell lymphoma of stomach Psychiatric care Recent unexplained weight loss Abdominal lymphadenopathy Syncope Abnormal weight loss Abdominal pain GERMAN (generalized anxiety disorder) Iron deficiency anemia Microcytic anemia GERD (gastroesophageal reflux disease) Type 2 diabetes mellitus, without long-term current use of insulin Dyslipidemia Hypertension Surgical History History of esophagogastroduodenoscopy (EGD) 09/05/23 H/O laparoscopy (10/24/23) Port-A-Cath in place Hx of colonoscopy with polypectomy Family History Mother Diabetes Stroke Family/Other Diabetes nephew Father Hypertension Denies family history of Colon cancer Ovarian cancer Heart disease Hyperlipidemia Breast cancer Uterine cancer Thyroid disease Social History Smoking and tobacco/nicotine status: never used tobacco/nicotine Alcohol intake: former Substance/Drug Use: never Current occupation: EVS AT [employer] Physical Exam Const: COMMON NORMALS: no acute distress GENERAL APPEARANCE: cooperative and comfortable ORIENTATION/CONSCIOUSNESS: Yes awake, Yes oriented to person, Yes oriented to place and Yes oriented to time HENMT: COMMON NORMALS: normocephalic, atraumatic and hearing grossly normal bilaterally HEAD & SCALP: normocephalic and atraumatic Resp: COMMON NORMALS: normal respiratory effort, No retractions, No use of accessory muscles and clear to auscultation bilaterally AUSCULTATION: clear to auscultation bilaterally Cardio: COMMON NORMALS: regular rate, regular rhythm and No murmurs present (Cardio) RATE: regular rate RHYTHM: regular rhythm GI: COMMON NORMALS: Soft to palpation and No hepatosplenomegaly present AUSCULTATION: Yes normoactive bowel sounds PALPATION: Yes Soft to palpation, No Tenderness to palpation present (GI), No Guarding due to palpation present (GI) and Yes No hepatosplenomegaly present Extremity: COMMON NORMALS: normal to inspection, capillary refill normal, no clubbing, cyanosis or edema, no calf tenderness and no pedal edema Neuro: SENSORIUM/ORIENTATION: Yes oriented to person, Yes oriented to place and Yes oriented to time Skin: COMMON NORMALS: no rashes or lesions noted GENERAL SKIN EXAM: no rashes or lesions noted Procedures Central Line Placement Right IJ: Patient Placed on Monitor/Pulse Ox: Yes MD Prep: mask, gown and gloves Central Line Prep: Chlorhexidine scrub Ultrasound Used for Placement: Yes Central Line Lumen Inserted: triple Post Procedure: sutured in place, good blood return, all ports aspirated, flushed, capped and sterile dressing applied Patient Tolerated Procedure: well Complications: none Chest Tube Chest Tube 1: Chest Tube Location: left Size of Tube (cm): 13 Chest Tube Prep: Yes betadine prep and sterile drapes applied Amount of anesthesia used (mL): 5 Incision Made With: #11 blade Post Procedure: sterile dressing applied and other (Adhesive) Tube Drainage: other (air) Post Procedure CXR?: Yes Patient Tolerated Procedure: Yes Intubation sedative: Etomidate Mg Given: 20 paralytic: Vecuronium Mg Given: 10 Laryngoscope: fiber optic video scope ET Tube Size: 8 ET Tube Uncuffed: No Tube Secured Depth (cm): 21 Tube Secured Location: teeth Tube Placement Confirmation: visualized tube passing through cords, equal breath sounds bilaterally, no breath sounds over epigastrium and confirmation by capnometry Patient Tolerated Procedure: well Intubation Complications: none Additional Comments: During intubation there is a large amount of blood pooling from the esophagus and none noted from the cords. Blood was suctioned in typical fashion to control. Procedural Sedation Indication: other (Chest tube placement) ASA Class: I Time of Last PO Intake: 08:00 Preparation: biostatistics director applied, pulse oximeter, capnometry used, supplemental O2 applied and suction/airway equipment at bedside Ketamine: IV Ketamine dose (mg): 100 Complications: hypoventilation Interventions: oxygen applied and airway repositioned Additional Comments: After placement of chest tube patient had some hypoventilation with [id number] to assist she began vomiting large amounts of blood. She was subsequently intubated. Course Vital Signs: Vital signs: Vital Signs Temperature 96.4 F L 11/12/23 19:40 Pulse Rate 92 11/12/23 20:00 Respiratory Rate 20 H 11/12/23 20:00 Blood Pressure 156/95 11/12/23 20:15 Pulse Oximetry 100 11/12/23 20:05 Oxygen Delivery Me thod Mechanical Ventil ation 11/12/23 19:30 Fraction of Inspir ed Oxygen 100 11/12/23 19:33 MDM - Fall Medical Decision Making Patient with a known history of lymphoma has a gastric mass associated with lymphoma on CT it appears to eroded into the stomach essentially she has a contained gastric perforation. She had fallen at home found to have a pneumothorax and thoracic vent was placed in the anterior axillary line with good relief of the pneumothorax. Noted subcu air on a follow-up chest x-ray tube is in good position. During placement of the tube patient began vomiting blood. She was emergently intubated to control her airway. OG was placed patient had copious amounts of blood from the orogastric tube. Patient was transfused emergently fresh frozen plasma is also ordered. To facilitate multiple medications and blood tests right IJ was started. Patient's blood pressure improved with the pressors. Condition very guarded. Dr. Erazo has assisted in his made arrangements for transfer. Will transfer as a trauma ER to ER to [facility]. Transfer pending at change of shift. Care signed out to Dr. Erazo at change of shift. See final notes for diagnosis and disposition. Patient presenting here after a fall was found to be unresponsive she did have a pneumothorax patient had a central line placed along with a chest tube and intubated by prior physician Dr. Suarez. Started having large amounts of bleeding she did have a mass noted in her stomach that likely is not perforated artery she has been given blood here patient was transferred to [facility] for higher level of care for acute GI and trauma. Lab Data 11/12/23 18:50 11/12/23 15:45 Radiology Impressions Abdomen/Pelvis CT 11/12/23 16:16 IMPRESSION: 1. Left rib fractures and left pneumothorax 2. Enlarging mass associated with the posterior aspect of the distal gastric antrum. Findings worrisome for either mass eroding into the stomach or developing gastric perforation. 3. Omental nodularity worrisome for omental metastasis 4. Periportal adenopathy unchanged 5. No free intraperitoneal air is identified COMMENTS: THIS REPORT CONTAINS FINDINGS THAT MAY BE CRITICAL TO PATIENT CARE. The findings were verbally communicated via telephone conference with KHALIF MORRISON at 5:33 PM CDT and again at 6:05 p.m. on 11/12/2023. The findings were acknowledged and understood. Chest X-Ray 11/12/23 19:12 IMPRESSION: 1. No pneumothorax following right jugular central venous catheter placement. 2. No change in the other findings. Laboratory Results WBC 28.18 10^3/uL (3.29-11.43) H 11/12/23 15:45 RBC 2.66 10^6/uL (3.85-5.65) L 11/12/23 15:45 Hgb 3.80 g/dL (11.27-16.99) L* D 11/12/23 18:50 Hct 12.7 % (36-47) L* D 11/12/23 18:50 MCV 98.1 fl (85-98) H 11/12/23 15:45 MCH 30.8 pg (27-33) 11/12/23 15:45 MCHC 31.4 g/dL (30-55) 11/12/23 15:45 RDW 15.4 % (12.1-15.1) H 11/12/23 15:45 Plt Count 609 10^3/cmm (157-399) H 11/12/23 15:45 MPV 9.2 fL (7.4-10.4) 11/12/23 15:45 Neut % (Auto) 87.4 % 11/12/23 15:45 Lymph % (Auto) 5.5 % 11/12/23 15:45 Garrard % (Auto) 4.0 % 11/12/23 15:45 Eos % (Auto) 0.0 % 11/12/23 15:45 Baso % (Auto) 0.2 % 11/12/23 15:45 Neut # (Auto) 24.60 10^3/uL (1.8-7.7) H 11/12/23 15:45 Lymph # (Auto) 1.6 10^3/uL (0.8-4.8) 11/12/23 15:45 Garrard # (Auto) 1.1 10^3/uL (0.2-0.9) H 11/12/23 15:45 Eos # (Auto) 0.0 10^3/uL (0.0-0.8) 11/12/23 15:45 Baso # (Auto) 0.1 10^3/uL (0.0-0.1) 11/12/23 15:45 Nucleated RBC % (auto) 0.1 % 11/12/23 15:45 Nucleated RBCs # 0.0 /100WBC 11/12/23 15:45 PT 14.20 SECONDS (12.1-14.9) 11/12/23 15:45 INR 1.06 (0.8-1.2) 11/12/23 15:45 APTT 23.7 SECONDS (23.9-36.7) L 11/12/23 15:45 Specimen Type Arterial 11/12/23 19:20 Sample Site Radial, left 11/12/23 19:20 ABG pH 7.24 (7.35-7.45) L 11/12/23 19:20 ABG pCO2 36.0 mmHg (35-45) 11/12/23 19:20 ABG pO2 392.0 mmHg (80.0-100.0) H 11/12/23 19:20 ABG PO2/FiO2 Ratio 392 11/12/23 19:20 ABG HCO3 15.3 mmol/L (22-26) L 11/12/23 19:20 ABG O2 Saturation > 100.0 11/12/23 19:20 ABG Base Excess -11.1 mmol/L (-2.0-2.0) L 11/12/23 19:20 Hemanth Test Pos 11/12/23 19:20 A-a O2 Gradient 34.8 mmHg (5-10) H 11/12/23 19:20 Hematocrit 18.9 % (37-47) L 11/12/23 19:20 Hgb O2 Saturation 99.1 % (95-100) 11/12/23 19:20 Carboxyhemoglobin 0.8 %THgb (0.4-20.1) 11/12/23 19:20 Methemoglobin 0.5 % (0.4-1.5) 11/12/23 19:20 Total Hemoglobin 6.2 g/dL (12-16) L 11/12/23 19:20 Sodium 139.0 mmol/L (131-143) 11/12/23 19:20 Potassium 4.6 mmol/L (3.5-5.0) 11/12/23 19:20 Glucose 298.0 mg/dL (70-115) H 11/12/23 19:20 Ionized Calcium 1.0 mmol/L (1.1-1.4) L 11/12/23 19:20 O2 Delivery Device Vent 11/12/23 19:20 FiO2 100.0 % 11/12/23 19:20 Tidal Volume 0.35 11/12/23 19:20 PEEP 5.0 cmH20 11/12/23 19:20 Web Services Professional ID [email or web address] 11/12/23 19:20 Sodium 139 mmol/L (136-145) 11/12/23 15:45 Potassium 5.3 mmol/L (3.5-5.1) H 11/12/23 15:45 Chloride 101 mmol/L (98-107) 11/12/23 15:45 Carbon Dioxide 20 mmol/L (22-29) L 11/12/23 15:45 Anion Gap 23.3 (5-19) H 11/12/23 15:45 BUN 57 mg/dL (6-20) H 11/12/23 15:45 Creatinine 1.1 mg/dL (0.5-0.9) H 11/12/23 15:45 GFR Calculation 51.0 mL/min (90-130) L 11/12/23 15:45 Glucose 280 mg/dL (65-115) H 11/12/23 15:45 Calculated Osmolality 314 mOsm/kg (285-295) H 11/12/23 15:45 Lactic Acid 8.9 mmol/L (0.5-2.2) H* 11/12/23 15:45 Lactic Acid (Sepsis) 9.6 mmol/L (0.5-2.2) H* 11/12/23 18:50 Calcium 9.0 mg/dL (8.5-10.5) 11/12/23 15:45 Magnesium 2.1 mg/dL (1.7-2.3) 11/12/23 15:45 Total Bilirubin 0.2 mg/dL (0.15-1.2) 11/12/23 15:45 AST 16 U/L (0-32) 11/12/23 15:45 ALT 11 U/L (0-33) 11/12/23 15:45 Alkaline Phosphatase 89 U/L (35-105) 11/12/23 15:45 Ammonia 24 umol/L (11-51) 11/12/23 16:23 Creatine Kinase 161 U/L (26-192) 11/12/23 15:45 Total Protein 6.4 g/dL (6.6-8.7) L 11/12/23 15:45 Albumin 3.5 g/dL (3.5-5.2) 11/12/23 15:45 Globulin 2.9 g/dL (1.3-4.6) 11/12/23 15:45 Lipase 13 U/L (13-60) 11/12/23 15:45 Urine Color Yellow (Yellow) 11/12/23 16:20 Urine Appearance Slightly cloudy (CLEAR) 11/12/23 16:20 Urine pH 5 (5-7) 11/12/23 16:20 Ur Specific [place] 1.025 (1.005-1.030) 11/12/23 16:20 Urine Protein Neg (Negative) 11/12/23 16:20 Urine Glucose (UA) Trace (Normal) H 11/12/23 16:20 Urine Ketones 1+ (Negative) H 11/12/23 16:20 Urine Blood Neg (Negative) 11/12/23 16:20 Urine Nitrate Negative (Negative) 11/12/23 16:20 Urine Bilirubin 1+ (Negative) H 11/12/23 16:20 Urine Urobilinogen Norm mg/dL (Negative) 11/12/23 16:20 Ur Leukocyte Esterase 2+ (Negative) H 11/12/23 16:20 Urine RBC 0-4 /hpf (0-2) H 11/12/23 16:20 Urine WBC 25-40 /hpf (0-5) H 11/12/23 16:20 Ur Squamous Epith Cells 0-4 /hpf (0-5) H 11/12/23 16:20 Calcium Oxalate Crystal 0-4 /hpf H 11/12/23 16:20 Amorphous Sediment 1+ /hpf 11/12/23 16:20 Urine Bacteria 1+ /hpf (NONE) H 11/12/23 16:20 Hyaline Casts 5-10 /lpf H 11/12/23 16:20 Serum Ketones Negative (Negative) 11/12/23 15:45 Blood Type A Negative 11/12/23 17:19 Rho(D) Type Rh negative 11/12/23 17:19 Antibody Screen Negative 11/12/23 17:19 Crossmatch See Detail 11/12/23 17:19 Critical Care Time Critical Care Time: Critical Care Time: Yes Attestation: The high probability of a clinically significant, sudden or life threatening deterioration of the patient's GI cardiovascular respiratory system(s) required my full and direct attention, intervention and personal management. The critical care time is as shown. This time is in addition to time spent performing any reported procedures but includes the following: [x] Data and vital sign review and interpretation [x] Patient assessment, examination and intervention [x] Documentation [x] Medication orders and management Discharge Plan Discharge Patient Disposition: Xfer Short-Term Hosp Clinical Impression: Acute upper gastrointestinal bleeding, Fall, Pneumothorax Condition: Stable Referrals: Julio Jay DO [Primary Care Provider] - Coding Level of Care Code ED Label Fuser Tender for Chg Fwd Documented by User: Rajni Erazo MD 11/12/23 20:54 HPI - Fall General: Chief Complaint: Weakness Stated Complaint: fall,weakness Time Seen by Provider: 11/12/23 16:07 [facility] ED PFSH: Medical History Diffuse large B-cell lymphoma of stomach Psychiatric care Recent unexplained weight loss Abdominal lymphadenopathy Syncope Abnormal weight loss Abdominal pain GERMAN (generalized anxiety disorder) Iron deficiency anemia Microcytic anemia GERD (gastroesophageal reflux disease) Type 2 diabetes mellitus, without long-term current use of insulin Dyslipidemia Hypertension Surgical History History of esophagogastroduodenoscopy (EGD) 09/05/23 H/O laparoscopy (10/24/23) Port-A-Cath in place Hx of colonoscopy with polypectomy Family History Mother Diabetes Stroke Family/Other Diabetes nephew Father Hypertension Denies family history of Colon cancer Ovarian cancer Heart disease Hyperlipidemia Breast cancer Uterine cancer Thyroid disease Social History Smoking and tobacco/nicotine status: never used tobacco/nicotine Alcohol intake: former Substance/Drug Use: never 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 Suarez. Started having large amounts of bleeding she did have a mass noted in her stomach that likely is not perforated artery she has been given blood here patient was transferred to [facility] for higher level of care for acute GI and trauma. Lab Data 11/12/23 18:50 11/12/23 15:45 Radiology Impressions Abdomen/Pelvis CT 11/12/23 16:16 IMPRESSION: 1. Left rib fractures and left pneumothorax 2. Enlarging mass associated with the posterior aspect of the distal gastric antrum. Findings worrisome for either mass eroding into the stomach or developing gastric perforation. 3. Omental nodularity worrisome for omental metastasis 4. Periportal adenopathy unchanged 5. No free intraperitoneal air is identified COMMENTS: THIS REPORT CONTAINS FINDINGS THAT MAY BE CRITICAL TO PATIENT CARE. The findings were verbally communicated via telephone conference with KHALIF MORRISON at 5:33 PM CDT and again at 6:05 p.m. on 11/12/2023. The findings were acknowledged and understood. Chest X-Ray 11/12/23 19:12 IMPRESSION: 1. No pneumothorax following right jugular central venous catheter placement. 2. No change in the other findings. Laboratory Results WBC 28.18 10^3/uL (3.29-11.43) H 11/12/23 15:45 RBC 2.66 10^6/uL (3.85-5.65) L 11/12/23 15:45 Hgb 3.80 g/dL (11.27-16.99) L* D 11/12/23 18:50 Hct 12.7 % (36-47) L* D 11/12/23 18:50 MCV 98.1 fl (85-98) H 11/12/23 15:45 MCH 30.8 pg (27-33) 11/12/23 15:45 MCHC 31.4 g/dL (30-55) 11/12/23 15:45 RDW 15.4 % (12.1-15.1) H 11/12/23 15:45 Plt Count 609 10^3/cmm (157-399) H 11/12/23 15:45 MPV 9.2 fL (7.4-10.4) 11/12/23 15:45 Neut % (Auto) 87.4 % 11/12/23 15:45 Lymph % (Auto) 5.5 % 11/12/23 15:45 Garrard % (Auto) 4.0 % 11/12/23 15:45 Eos % (Auto) 0.0 % 11/12/23 15:45 Baso % (Auto) 0.2 % 11/12/23 15:45 Neut # (Auto) 24.60 10^3/uL (1.8-7.7) H 11/12/23 15:45 Lymph # (Auto) 1.6 10^3/uL (0.8-4.8) 11/12/23 15:45 Garrard # (Auto) 1.1 10^3/uL (0.2-0.9) H 11/12/23 15:45 Eos # (Auto) 0.0 10^3/uL (0.0-0.8) 11/12/23 15:45 Baso # (Auto) 0.1 10^3/uL (0.0-0.1) 11/12/23 15:45 Nucleated RBC % (auto) 0.1 % 11/12/23 15:45 Nucleated RBCs # 0.0 /100WBC 11/12/23 15:45 PT 14.20 SECONDS (12.1-14.9) 11/12/23 15:45 INR 1.06 (0.8-1.2) 11/12/23 15:45 APTT 23.7 SECONDS (23.9-36.7) L 11/12/23 15:45 Specimen Type Arterial 11/12/23 19:20 Sample Site Radial, left 11/12/23 19:20 ABG pH 7.24 (7.35-7.45) L 11/12/23 19:20 ABG pCO2 36.0 mmHg (35-45) 11/12/23 19:20 ABG pO2 392.0 mmHg (80.0-100.0) H 11/12/23 19:20 ABG PO2/FiO2 Ratio 392 11/12/23 19:20 ABG HCO3 15.3 mmol/L (22-26) L 11/12/23 19:20 ABG O2 Saturation > 100.0 11/12/23 19:20 ABG Base Excess -11.1 mmol/L (-2.0-2.0) L 11/12/23 19:20 Hemanth Test Pos 11/12/23 19:20 A-a O2 Gradient 34.8 mmHg (5-10) H 11/12/23 19:20 Hematocrit 18.9 % (37-47) L 11/12/23 19:20 Hgb O2 Saturation 99.1 % (95-100) 11/12/23 19:20 Carboxyhemoglobin 0.8 %THgb (0.4-20.1) 11/12/23 19:20 Methemoglobin 0.5 % (0.4-1.5) 11/12/23 19:20 Total Hemoglobin 6.2 g/dL (12-16) L 11/12/23 19:20 Sodium 139.0 mmol/L (131-143) 11/12/23 19:20 Potassium 4.6 mmol/L (3.5-5.0) 11/12/23 19:20 Glucose 298.0 mg/dL (70-115) H 11/12/23 19:20 Ionized Calcium 1.0 mmol/L (1.1-1.4) L 11/12/23 19:20 O2 Delivery Device Vent 11/12/23 19:20 FiO2 100.0 % 11/12/23 19:20 Tidal Volume 0.35 11/12/23 19:20 PEEP 5.0 cmH20 11/12/23 19:20 Web Services Professional ID [email or web address] 11/12/23 19:20 Sodium 139 mmol/L (136-145) 11/12/23 15:45 Potassium 5.3 mmol/L (3.5-5.1) H 11/12/23 15:45 Chloride 101 mmol/L (98-107) 11/12/23 15:45 Carbon Dioxide 20 mmol/L (22-29) L 11/12/23 15:45 Anion Gap 23.3 (5-19) H 11/12/23 15:45 BUN 57 mg/dL (6-20) H 11/12/23 15:45 Creatinine 1.1 mg/dL (0.5-0.9) H 11/12/23 15:45 GFR Calculation 51.0 mL/min (90-130) L 11/12/23 15:45 Glucose 280 mg/dL (65-115) H 11/12/23 15:45 Calculated Osmolality 314 mOsm/kg (285-295) H 11/12/23 15:45 Lactic Acid 8.9 mmol/L (0.5-2.2) H* 11/12/23 15:45 Lactic Acid (Sepsis) 9.6 mmol/L (0.5-2.2) H* 11/12/23 18:50 Calcium 9.0 mg/dL (8.5-10.5) 11/12/23 15:45 Magnesium 2.1 mg/dL (1.7-2.3) 11/12/23 15:45 Total Bilirubin 0.2 mg/dL (0.15-1.2) 11/12/23 15:45 AST 16 U/L (0-32) 11/12/23 15:45 ALT 11 U/L (0-33) 11/12/23 15:45 Alkaline Phosphatase 89 U/L (35-105) 11/12/23 15:45 Ammonia 24 umol/L (11-51) 11/12/23 16:23 Creatine Kinase 161 U/L (26-192) 11/12/23 15:45 Total Protein 6.4 g/dL (6.6-8.7) L 11/12/23 15:45 Albumin 3.5 g/dL (3.5-5.2) 11/12/23 15:45 Globulin 2.9 g/dL (1.3-4.6) 11/12/23 15:45 Lipase 13 U/L (13-60) 11/12/23 15:45 Urine Color Yellow (Yellow) 11/12/23 16:20 Urine Appearance Slightly cloudy (CLEAR) 11/12/23 16:20 Urine pH 5 (5-7) 11/12/23 16:20 Ur Specific [place] 1.025 (1.005-1.030) 11/12/23 16:20 Urine Protein Neg (Negative) 11/12/23 16:20 Urine Glucose (UA) Trace (Normal) H 11/12/23 16:20 Urine Ketones 1+ (Negative) H 11/12/23 16:20 Urine Blood Neg (Negative) 11/12/23 16:20 Urine Nitrate Negative (Negative) 11/12/23 16:20 Urine Bilirubin 1+ (Negative) H 11/12/23 16:20 Urine Urobilinogen Norm mg/dL (Negative) 11/12/23 16:20 Ur Leukocyte Esterase 2+ (Negative) H 11/12/23 16:20 Urine RBC 0-4 /hpf (0-2) H 11/12/23 16:20 Urine WBC 25-40 /hpf (0-5) H 11/12/23 16:20 Ur Squamous Epith Cells 0-4 /hpf (0-5) H 11/12/23 16:20 Calcium Oxalate Crystal 0-4 /hpf H 11/12/23 16:20 Amorphous Sediment 1+ /hpf 11/12/23 16:20 Urine Bacteria 1+ /hpf (NONE) H 11/12/23 16:20 Hyaline Casts 5-10 /lpf H 11/12/23 16:20 Serum Ketones Negative (Negative) 11/12/23 15:45 Blood Type A Negative 11/12/23 17:19 Rho(D) Type Rh negative 11/12/23 17:19 Antibody Screen Negative 11/12/23 17:19 Crossmatch See Detail 11/12/23 17:19 All radiology interpretation(s) finalized by discharge Critical Care Time Critical Care Time: Critical Care Time: Yes Total Critical Care Time: 60 Attestation: The high probability of a clinically significant, sudden or life threatening deterioration of the patient's gi system(s) required my full and direct attention, intervention and personal management. The critical care time is as shown. This time is in addition to time spent performing any reported procedures but includes the following: [x] Data and vital sign review and interpretation [x] Patient assessment, examination and intervention [x] Documentation [x] Medication orders and management Discharge Plan Discharge Patient Disposition: Xfer Short-Term Hosp Clinical Impression: Acute upper gastrointestinal bleeding, Fall, Pneumothorax Condition: Stable Referrals: Julio Jay DO [Primary Care Provider] - Coding Level of Care Code ED Label Fuser Tender for Walter Baca
[2023-11-12 16:24] LABS: Basophils # 0.1 10^3/uL (0.0-0.1); Basophils % 0.2 %; Hematocrit 26.1 % (36-47); Lymphocytes # 1.6 10^3/uL (0.8-4.8); Lymphocytes % 5.5 %; Mean Corpuscular HGB Conc 31.4 g/dL (30-55); Mean Corpuscular Hemoglobin 30.8 pg (27-33); Mean Corpuscular Volume 98.1 fl (85-98); Mean Platelet Volume 9.2 fL (7.4-10.4); Monocytes # 1.1 10^3/uL (0.2-0.9); Neutrophils % 87.4 %; Nucleated Red Blood Cells % 0.1 %; Platelet Count 609 10^3/cmm (157-399); Red Blood Count 2.66 10^6/uL (3.85-5.65); Red Cell Distribution Width 15.4 % (12.1-15.1); White Blood Count 28.18 10^3/uL (3.29-11.43)
[2023-11-12 16:45] LABS: Alanine Aminotransferase 11 U/L (0-33); Albumin Level 3.5 g/dL (3.5-5.2); Alkaline Phosphatase 89 U/L (35-105); Anion Gap 23.3 (5-19); Aspartate Amino Transferase 16 U/L (0-32); Blood Urea Nitrogen 57 mg/dL (6-20); Carbon Dioxide 20 mmol/L (22-29); Chloride 101 mmol/L (98-107); Creatine Phosphokinase 161 U/L (26-192); Creatinine Clr Calc Pharmacy 35.9263; Globulin 2.9 g/dL (1.3-4.6); Glucose 280 mg/dL (65-115); Lipase 13 U/L (13-60); Magnesium 2.1 mg/dL (1.7-2.3); Osmolality Calculated 314 mOsm/kg (285-295); Potassium 5.3 mmol/L (3.5-5.1); Sodium 139 mmol/L (136-145); Total Bilirubin 0.2 mg/dL (0.15-1.2); Total Protein 6.4 g/dL (6.6-8.7)
[2023-11-12 16:46] LABS: Ketone (Acetest) Serum Negative (Negative)
[2023-11-12 16:47] LABS: INR 1.06 (0.8-1.2)
[2023-11-12 16:48] LABS: Partial Thromboplastin Time 23.7 SECONDS (23.9-36.7)
[2023-11-12] MEDS: pantoprazole 40 mg SDV 80 MG IVP (16:48)
[2023-11-12 16:51] LABS: Lactic Sepsis W/Reflex 8.9 mmol/L (0.5-2.2)
[2023-11-12 16:54] LABS: Ammonia 24 umol/L (11-51)
[2023-11-12] MEDS: iohexol 350 mg/mL 500 mL Btl (per mL) IV (17:10)
[2023-11-12 17:22] LABS: Add Urine Microscopic? YES; Bilirubin Urine 1+ (Negative); Blood Urine Neg (Negative); Glucose Urine UA Trace (Normal); Ketones Urine 1+ (Negative); Leukocyte Esterase Urine 2+ (Negative); Nitrate Urine Negative (Negative); Protein Urine Neg (Negative); Specific Gravity, Urine 1.025 (1.005-1.030); Urine Appearance Slightly Cloudy (CLEAR); Urine Color Yellow (Yellow); Urobilinogen Urine Norm (Negative); pH Urine 5 (5-7)
[2023-11-12 17:23] LABS: Bacteria Urine 1+ /hpf; RBC Urine 0-4 /hpf (0-2); Squamous Epithelial Cell Urine 0-4 /hpf (0-5); WBC Urine 25-40 /hpf (0-5)
[2023-11-12 17:24] LABS: Amorphous Sediment Urine 1+ /hpf; Calcium Oxalate Crystals Urine 0-4 /hpf
[2023-11-12 17:25] LABS: Add Urine Culture? Yes
[2023-11-12] MEDS: piperacillin-tazobactam 3.375 GM in sodium chloride 0.9% (plus) 50 ML IV (17:53)
[2023-11-12 18:11] LABS: Reflex Lactate Order REFLEX LACTIC ORDERD
[2023-11-12] MEDS: ketamine 100 mg/mL Inj 5 mL IVP (18:13)
[2023-11-12] MEDS: lidocaine-epi 1% 20 mL INJ INJECTION (18:15)
[2023-11-12] MEDS: vecuronium 10 mg SDV IVP (18:20)
[2023-11-12] MEDS: etomidate 2 mg/mL INJ SDV 10 mL 20 MG IVP (18:20)
--- NOTE | 2023-11-12 18:23 | XRR_ITS ---
PROCEDURE INFORMATION: Exam: XR Chest Exam date and time: 11/12/2023 6:27 PM Age: 58 years old Clinical indication: Device placement; Ett placement (vent status); Prior surgery; Surgery date: 6+ months; Surgery type: Port; Additional info: Tube placement ett placement ng tube lt chest tube TECHNIQUE: Imaging protocol: Radiologic exam of the chest. Views: 1 view. COMPARISON: CR (CHEST, ) 11/12/2023 4:37 PM FINDINGS: Tubes, catheters and devices: Nasogastric tube extends into the stomach. Endotracheal tube is in place with its tip 2.4 cm above the jailene. Infusion port catheter tip is in the superior vena cava. There is a small bore chest tube in place on the left. Lungs: Unremarkable. No consolidation. Pleural spaces: Left pneumothorax has been evacuated. No definite residual pneumothorax is identified. Heart/Mediastinum: Unremarkable. No cardiomegaly. Bones/joints: There are displaced fractures of the lateral aspects of the left 6th, 7th 8th and 9th ribs common better seen than on the previous examinations. Soft tissues: There is increase in soft tissue emphysema along the left chest wall. XR/XR chest 1V portable [id number] IMPRESSION: 1. Satisfactory position of endotracheal tube. 2. Multiple left rib fractures 3. Pneumothorax has been evacuated with small bore chest tube placement.
[2023-11-12] MEDS: sodium chloride 0.9% 100 mL Bag 50 ML IV ×2 (18:50→19:15)
[2023-11-12] MEDS: norepinephrine 4 MG/250 ML BAG 30 MG IV (18:57)
[2023-11-12] MEDS: fentaNYL 1,000 MCG/100 ML BAG 2.5 MCG IV (18:58)
[2023-11-12] MEDS: midazolam hcl 100 MG/100 ML BAG IV (18:58)
--- NOTE | 2023-11-12 19:12 | XRR_ITS ---
PROCEDURE INFORMATION: Exam: XR Chest Exam date and time: 11/12/2023 7:14 PM Age: 58 years old Clinical indication: Device placement; Other: Central line; Prior surgery; Surgery date: 6+ months; Surgery type: Port TECHNIQUE: Imaging protocol: Radiologic exam of the chest. Views: 1 view. COMPARISON: CR (CHEST, ) 11/12/2023 6:27 PM FINDINGS: Tubes, catheters and devices: There is a new right jugular central venous catheter with its tip in the superior vena cava. Infusion port catheter tip remains in the superior vena cava. There is a nasogastric tube in place with its tip in the stomach. Endotracheal tube tip is 2 cm above the jailene. Left-sided chest tube remains in place. Lungs: There is no acute pulmonary infiltrate. Pleural spaces: No definite left pneumothorax is identified. Heart/Mediastinum: Unremarkable. No cardiomegaly. Bones/joints: Multiple left rib fractures as described previously unchanged. Soft tissues: Soft tissue emphysema left chest wall unchanged. XR/XR chest 1V [id number] IMPRESSION: 1. No pneumothorax following right jugular central venous catheter placement. 2. No change in the other findings.
[2023-11-12 19:21] LABS: Hematocrit 12.7 % (36-47)
[2023-11-12 19:25] LABS: ABG PH Result 7.24 (7.35-7.45); Alveolar-Arterial Oxygen Gradi 34.8 mmHg (5-10); Arterial Blood Gas Hematocrit 18.9 % (37-47); Base Excess ABG -11.1 mmol/L (-2.0-2.0); Blood Gas Allen Test Pos; Blood Gas Sample Site Radial, left; Blood Gas Sample Type Arterial; Blood Gas Tidal Volume 0.35; Carboxyhemoglobin 0.8 %THgb (0.4-20.1); HCO3 ABG 15.3 mmol/L (22-26); HGB O2 Sat 99.1 % (95-100); Methemoglobin 0.5 % (0.4-1.5); Oxygen Device VENT; Oxygen Saturation ABG > 100.0; PO2 FiO2 Ratio Arterial Blood 392; Potassium Level - ABG 4.6 mmol/L (3.5-5.0); Total Hemoglobin 6.2 g/dL (12-16)
[2023-11-12 19:35] LABS: Lactic Acid level (Lactate) 9.6 mmol/L (0.5-2.2)
--- NOTE | 2023-11-12 19:48 | PC.NURSE ---
DURING THORAVENT PLACEMENT AND AFTER KETAMINE ADMIN FOR SEDATION BY DR COOL, PT BECAME BRADYCARDIC. PT THEN BEGAN TO VOMIT A LARGE AMOUNT OF DARK RED BLOOD WHILE SEDATED AND HAD SNORING RESPIRATIONS. DR COOL AT BEDSIDE WITH RT, AND NURSES. DR COOL GAVE VERBAL FOR PT NEEDING TO BE INTUBATED D/T DECLINE IN STATUS. PT WAS GIVEN ORDERED MEDS (DOCUMENTED IN JUL) AND INTUBATED BY DR COOL. OG TUBE AND RIVERA PLACED. PT APPEARS TO BE RESTING COMFORTABLY ON MECHANICAL VENTILATION AT THIS TIME. EMERGENT BLOOD GIVEN PER MD ORDER TOO.
[2023-11-12] MEDS: octreotide 100 mcg/mL SDV 50 MCG IVP (20:03)
--- NOTE | 2023-11-12 20:21 | PC.NURSE ---
Report given to AE12 Nick Rivera Pt loaded onto [id number] aircraft inbound to [facility]
--- NOTE | 2023-11-13 06:35 | PC.NURSE ---
Remaining fentanyl, levophed, and versed sent with [employer]
== END 2023-11-12 20:15 | disposition short-term general hospital (02) ==
PROVIDERS: Emergency Medicine; Emergency Provider Family Medicine; PCP Family Medicine
DX: K92.2 Gastrointestinal hemorrhage, unspecified (principal); J93.9 Pneumothorax, unspecified; Z85.72 Personal history of non-Hodgkin lymphomas; E11.9 Type 2 diabetes mellitus without complications; E78.5 Hyperlipidemia, unspecified; I10 Essential (primary) hypertension
CPT/HCPCS: 31500; 32551; 36415; 36430; 36556; 36600; 51702; 71045; 74177; 80051; 80053; 81001; 82009; 82140; 82330; 82550; 82805; 83605; 83690; 83735; 85014; 85018; 85025; 85610; 85730; 86850; 86900; 86920; 86927; 87040; 87086; 94002; 94799; 96365; 96375; 99291; 99292; C9113; J2250; J2354; J2543; J3010; J3490; J7030; P9016; P9017; Q9967